=== PATIENT | male | born 1945 | race Caucasian/White ===

== ENCOUNTER 2019-12-12 09:56 | Inpatient (IN) ==
--- NOTE | 2019-12-12 10:17 | Emergency Department Note ---
Impression & Plan Respiratory failure with hypoxia, CHF (congestive heart failure), Volume overload ED Provider Note NAME: AZALEA MILLER AGE: 74 SEX: M : 1945 ARRIVES VIA: Walk-In INFORMANT: Patient, ED PROVIDER(S): Erich Ramirez MD Chief Complaint: Weak, fatigued, short of breath HPI: Patient states that he has been seen this is now his third visit in the last several days. Patient had initially been seen where he had some low sodium was given IV fluids and had some improvement with regard to some chest wheezing and associated weakness. The patient was seen a second time where he refused any blood work we did have a chest x-ray completed the patient was given antibiotic and inhaler. Patient states that he still having some shortness of breath he believes he is had some associated 5 pound weight gain although he has not had any lower extremity swelling. The patient states his been compliant with medications denies nausea or vomiting. Patient denies fevers or chills. The patient has had a dry nonproductive cough. Non-smoker. The patient states that nothing is made her symptoms any better. Shortness of breath does get worse with exertion. Patient denies chest pains or lower extremity swelling. No prior history of DVT or PE. Per review of the chart the patient does take Eliquis and aspirin. The patient is also on digoxin. ROS: See HPI for pertinent positives and negatives. A total of 10 systems were reviewed and otherwise negative. Past medical history: See below Surgical history: See below Social history: See below Physical Exam: GENERAL: A mask. NAD, non-toxic. EYE EXAM: Normal conjunctiva. PERRL, no anisocoria and EOM's grossly intact w/o pain. NECK: Supple, no nuchal rigidity, no adenopathy, non-tender. No signs of meningismus. LUNGS: Clear to auscultation. Normal chest wall mechanics. HEART: Irregularly irregular, no MRG. ABDOMEN: Abdomen soft, non-tender, normo-active bowel sounds, no masses, no rebound or guarding. BACK: No CVA TTP. SKIN: No rashes and no bruising. UPPER EXTREMITIES: Upper extremities are grossly normal. LOWER EXTREMITIES: Grossly normal, no edema. Negative Homans sign bilaterally. NEURO EXAM: A&O x3, cranial nerves II-XII grossly intact, normal speech, moves all 4 extremities on command w/o issue. Differential diagnoses: Reactive airway disease, pneumonia, pneumothorax, COPD, CHF, infections, cardiac ischemia, pulmonary embolism, musculoskeletal, gastrointestinal, as well as other pathologies. Course: Patient was seen and evaluated the bedside. Full history physical exam was performed. EKG: Indication: Shortness of breath A. fib, ventricular rate of 69, normal intervals, normal axis, Q waves anteriorly possible T wave inversion in aVL. No prior EKGs for comparison. Imaging Studies: Radiology results as stated below per my review in the radiologist's interpretation: XR chest 1V portable CLINICAL HISTORY: Dyspnea dyspnea COMPARISON STUDY: 12/10/2019 FINDINGS: Moderate stable cardiomegaly. Some progressive components of pulmonary edema versus diffuse bilateral parenchymal infiltrative change. There are no regions of consolidation. Underlying nodular component of the left lung is unchanged. IMPRESSION: Slightly progressive bilateral parenchymal infiltrates versus components of pulmonary edema ACT 112: Negative or not required by law. The above report was generated using voice recognition software. It may contain grammatical, syntax or spelling errors. Electronically signed by: Erasto Snyder M.D. 12/12/2019 10:46 AM Dictated: 12/12/19 1044 Transcribed: 12/12/19 1044 Cardiac monitoring: An order was placed for continuous cardiac monitoring. The monitor shows a rate of 64 with irregularly irregular rhythm. MDM: Patient was seen due to concern for shortness of breath weakness and fatigue. Blood work was obtained along with an EKG, troponin, chest x-ray BNP, dig level. I did receive report from nursing that the patient was satting in the 70s. Patient was placed on additional oxygen and was maintaining in the low 90s 15 L on a nonrebreather. Patient does not look uncomfortable. Chest x-ray does show bilateral infiltrates versus pulmonary edema. Ordered empiric antibiotics given the patient's known history of A. fib on Eliquis and dig even in the absence of lower extremity swelling will consider Lasix. Rapid Test was ordered and the patient was placed under isolation. The patient does have a mild white count of 10 with a hemoglobin 11.8. The patient does have some mild lymphopenia but also neutrophilia. Patient have tracely low digoxin. BNP is grossly elevated. Nitroglycerin as well as Lasix were both ordered. Patient did have a negative COVID test. Poly ent was admitted to the medicine service. Patient during his whole time here is never looked in extremis. The patient was comfortable. The patient's ABG ABG did show that the patient does have a low O2. I did consider the possibility of PE but the patient is currently anticoagulated and given the patient's history as well as the pulmonary edema likely seen on chest x-ray I believe volume overload to be more likely. Past Med/Surg History Medical History Atrial fibrillation Carotid artery stenosis Diabetes mellitus, type 2 Gout Hyperlipidemia Hypertension Kidney function abnormal "REDUCED KIDNEY FUNCTION" Osteoarthritis Surgical History History of cardiac cath HEART CATH X 2 (10 YEARS AGO) History of carotid endarterectomy RT/LEFT SIDE WITH STENTS INSERTIONS BILAT. History of colonoscopy History of heart artery stent 10 YEARS AGO (2 TOTAL STENTS) History of left cataract extraction 04/2018: Was given 2mg of versed without apparent complications History of tooth extraction Hx of LASIK PRK BILAT EYES Family History Grandmother (Paternal) Family history of diabetes mellitus Sister Family history of diabetes mellitus Mother Family hx of colon cancer Father AAA (abdominal aortic aneurysm) Social History Preferred Language: Macanese Communication Ability: Effective Community Affairs Director Required: No Beliefs That Will Affect Care: None Current Living Situation: Spouse Other Information That Helps Us Care for You: No Feels Safe at Home: Yes Safety Concerns: Feels Safe At This Time Smoking Status: Never smoker Second Hand Exposure: No ; Hx Alcohol Use: No Hx Substance Use: No Allergies Allergies Allergy/AdvReac Type Severity Reaction Status Date / Time oxycodone [From Percocet] AdvReac Mild Nausea Verified 12/12/19 11:29 Home Meds Home Medications Medication Instructions Recorded Confirmed Basaglar KwikPen U-100 Insulin 30 unit SUBCUT HS 05/10/18 12/12/19 Eliquis 5 mg PO BID 05/10/18 12/12/19 Januvia 50 mg PO QAM 05/10/18 12/12/19 allopurinol 300 mg PO QAM 05/10/18 12/12/19 amlodipine 5 mg PO HS 05/10/18 12/12/19 atenolol 25 mg PO HS 05/10/18 12/12/19 atenolol 50 mg PO QAM 05/10/18 12/12/19 atorvastatin 40 mg PO HS 05/10/18 12/12/19 digoxin 0.125 mg PO SUMOWEFR 05/10/18 12/12/19 ergocalciferol (vitamin D2) 50,000 unit PO UD 05/10/18 12/12/19 [Vitamin D2] fenofibric acid (choline) 135 mg PO QAM 05/10/18 12/12/19 omega 5-[id number]-[id number]-fish oil [Fish Oil] 2 cap PO BID 05/10/18 12/12/19 valsartan 160 mg PO QAM 05/10/18 12/12/19 aspirin [Aspir-81] 81 mg PO QAM 12/10/19 12/12/19 hydrochlorothiazide 25 mg PO QAM 12/10/19 12/12/19 Previous Rx's Medication Instructions Recorded doxycycline hyclate 100 mg PO BID 10 Days #20 tab 12/10/19 Results & Data (ED) Vital Signs Vital Signs - 24 hr 12/12/19 10:02 12/12/19 10:42 12/12/19 10:47 Temperature 37.1 C Temperature Source Oral Pulse Rate 64 Pulse Rate [Left Finger] Respiratory Rate 18 Respiratory Effort / Characteristics Non-Labored Spontaneous Respiratory Depth Normal Respiratory Pattern Regular Blood Pressure 157/67 H Blood Pressure [Left Arm] Blood Pressure Mean 97 Blood Pressure Mean [Left Arm] Blood Pressure Position Sitting Pulse Oximetry 96 79 L 86 L Oxygen Delivery Method Room Air Room Air Nasal Cannula Oxygen Flow Rate 6 Sepsis Recent Fever Within 48 Hours No Sepsis New/Unexplained Change in Mental Status No 12/12/19 10:57 12/12/19 11:00 12/12/19 11:30 Temperature Temperature Source Pulse Rate 68 60 Pulse Rate [Left Finger] 61 Respiratory Rate 24 24 23 Respiratory Effort / Characteristics Respiratory Depth Respiratory Pattern Blood Pressure 171/79 H 150/77 H Blood Pressure [Left Arm] 152/73 H Blood Pressure Mean 93 90 Blood Pressure Mean [Left Arm] 99 Blood Pressure Position Pulse Oximetry 89 L 90 92 Oxygen Delivery Method Non-rebreather Non-rebreather Non-rebreather Oxygen Flow Rate 15 15 15 Sepsis Recent Fever Within 48 Hours Sepsis New/Unexplained Change in Mental Status 12/12/19 12:00 12/12/19 12:30 12/12/19 13:01 Temperature Temperature Source Pulse Rate 63 60 63 Pulse Rate [Left Finger] Respiratory Rate 20 25 H 25 H Respiratory Effort / Characteristics Respiratory Depth Respiratory Pattern Blood Pressure 161/82 H 160/84 H 170/85 H Blood Pressure [Left Arm] Blood Pressure Mean 98 97 121 Blood Pressure Mean [Left Arm] Blood Pressure Position Pulse Oximetry 91 90 90 Oxygen Delivery Method Non-rebreather Non-rebreather Non-rebreather Oxygen Flow Rate 15 15 15 Sepsis Recent Fever Within 48 Hours Sepsis New/Unexplained Change in Mental Status Home Medications Current Medication List: was personally reviewed by me Laboratory Data Attestation: I reviewed the patient's lab results. Result diagrams: 12/12/19 10:55 12/12/19 10:55 Lab Results 12/12/19 12/12/19 12/12/19 Range/Units 10:55 10:55 10:55 WBC 10.82 H (4.8-10.8) K/uL RBC 3.78 L (4.7-6.1) M/uL Hgb 11.8 L (14.0-18.0) g/dL Hct 32.8 L (42-52) % MCV 86.8 (80-100) fL MCH 31.2 (25-34) pg MCHC 36.0 (32-36) g/dL RDW Std Deviation 47.9 H (36.4-46.3) fL RDW Coeff of Aleksandra 15.1 H (11.5-14.5) % Plt Count 137 (130-400) K/uL MPV 10.2 (7.4-10.4) fL Immature Gran % (Auto) 0.2 % Neut % (Auto) 84.7 % Lymph % (Auto) 9.1 % [place] % (Auto) 5.8 % Eos % (Auto) 0.1 % Baso % (Auto) 0.1 % Neut # (Auto) 9.17 H (1.4-6.5) K/uL Lymph # (Auto) 0.98 L (1.2-3.4) K/uL [place] # (Auto) 0.63 H (0.11-0.59) K/uL Eos # (Auto) 0.01 (0-0.5) K/uL Baso # (Auto) 0.01 (0-0.2) K/uL Immature Gran # (Auto) 0.02 (0.00-0.02) K/uL PT 13.9 H (9.0-12.0) Seconds INR 1.3 H (0.9-1.1) APTT 42.6 H (21.0-31.0) Seconds PTT Ratio 1.5 ABG pH ABG pCO2 ABG pO2 ABG HCO3 ABG O2 Saturation ABG Base Excess Donnell Test Barometric Pressure Oxygen Given Sodium 124 L (136-145) mmol/L Potassium 3.9 (3.5-5.1) mmol/L Chloride 93 L (98-107) mmol/L Carbon Dioxide 21 (21-32) mmol/L Anion Gap 10.0 (3-11) BUN 40 H (7-18) mg/dl Creatinine 2.19 H (0.6-1.4) mg/dl Est Cr Clr Drug Dosing 29.1 ml/min Est GFR ( Amer) 32.9 Est GFR (Non-Af Amer) 28.4 BUN/Creatinine Ratio 18.5 (10-20) Glucose 213 H (70-99) mg/dl Lactate (0.4-2.0) mmol/L Calcium 8.5 (8.5-10.1) mg/dl Magnesium 1.5 L (1.8-2.4) mg/dl Total Bilirubin 1.4 H (0.2-1) mg/dl AST 42 H (15-37) U/L ALT 38 (12-78) U/L Alkaline Phosphatase 52 (45-117) U/L Troponin I 0.033 (0-0.045) ng/ml NT-Pro-B Natriuret Pep 09865 H (0-900) pg/ml Total Protein 7.4 (6.4-8.2) gm/dl Albumin 3.0 L (3.4-5.0) gm/dl Globulin 4.4 H (2.5-4.0) gm/dl Albumin/Globulin Ratio 0.7 L (0.9-2) Procalcitonin (0-0.5) ng/ml Urine Color Urine Appearance (Clear) Urine pH (4.5-7.5) Ur Specific [place] (1.000-1.030) Urine Protein (Negative) Urine Glucose (UA) (Negative) Urine Ketones (Negative) Urine Blood (Negative) Urine Nitrite (Negative) Urine Bilirubin (Negative) Urine Urobilinogen (Negative) Ur Leukocyte Esterase (Negative) Urine WBC (Auto) (0-5) /hpf Urine RBC (Auto) (0-4) /hpf U Hyaline Cast (Auto) (0-5) /lpf U Epithel Cells (Auto) (0-5) /lpf Urine Bacteria (Auto) (Negative) Digoxin (0.8-2.0) ng/ml COVID-19 PCR (Negative) SARS-CoV-2 RNA (RT-PCR) 12/12/19 12/12/19 12/12/19 Range/Units 10:55 10:55 11:18 WBC (4.8-10.8) K/uL RBC (4.7-6.1) M/uL Hgb (14.0-18.0) g/dL Hct (42-52) % MCV (80-100) fL MCH (25-34) pg MCHC (32-36) g/dL RDW Std Deviation (36.4-46.3) fL RDW Coeff of Aleksandra (11.5-14.5) % Plt Count (130-400) K/uL MPV (7.4-10.4) fL Immature Gran % (Auto) % Neut % (Auto) % Lymph % (Auto) % [place] % (Auto) % Eos % (Auto) % Baso % (Auto) % Neut # (Auto) (1.4-6.5) K/uL Lymph # (Auto) (1.2-3.4) K/uL [place] # (Auto) (0.11-0.59) K/uL Eos # (Auto) (0-0.5) K/uL Baso # (Auto) (0-0.2) K/uL Immature Gran # (Auto) (0.00-0.02) K/uL PT (9.0-12.0) Seconds INR (0.9-1.1) APTT (21.0-31.0) Seconds PTT Ratio ABG pH ABG pCO2 ABG pO2 ABG HCO3 ABG O2 Saturation ABG Base Excess Donnell Test Barometric Pressure Oxygen Given Sodium (136-145) mmol/L Potassium (3.5-5.1) mmol/L Chloride (98-107) mmol/L Carbon Dioxide (21-32) mmol/L Anion Gap (3-11) BUN (7-18) mg/dl Creatinine (0.6-1.4) mg/dl Est Cr Clr Drug Dosing ml/min Est GFR ( Amer) Est GFR (Non-Af Amer) BUN/Creatinine Ratio (10-20) Glucose (70-99) mg/dl Lactate 1.4 (0.4-2.0) mmol/L Calcium (8.5-10.1) mg/dl Magnesium (1.8-2.4) mg/dl Total Bilirubin (0.2-1) mg/dl AST (15-37) U/L ALT (12-78) U/L Alkaline Phosphatase (45-117) U/L Troponin I (0-0.045) ng/ml NT-Pro-B Natriuret Pep (0-900) pg/ml Total Protein (6.4-8.2) gm/dl Albumin (3.4-5.0) gm/dl Globulin (2.5-4.0) gm/dl Albumin/Globulin Ratio (0.9-2) Procalcitonin 0.66 H (0-0.5) ng/ml Urine Color Urine Appearance (Clear) Urine pH (4.5-7.5) Ur Specific [place] (1.000-1.030) Urine Protein (Negative) Urine Glucose (UA) (Negative) Urine Ketones (Negative) Urine Blood (Negative) Urine Nitrite (Negative) Urine Bilirubin (Negative) Urine Urobilinogen (Negative) Ur Leukocyte Esterase (Negative) Urine WBC (Auto) (0-5) /hpf Urine RBC (Auto) (0-4) /hpf U Hyaline Cast (Auto) (0-5) /lpf U Epithel Cells (Auto) (0-5) /lpf Urine Bacteria (Auto) (Negative) Digoxin 0.7 L (0.8-2.0) ng/ml COVID-19 PCR (Negative) SARS-CoV-2 RNA (RT-PCR) 12/12/19 12/12/19 12/12/19 Range/Units 11:20 11:30 11:30 WBC (4.8-10.8) K/uL RBC (4.7-6.1) M/uL Hgb (14.0-18.0) g/dL Hct (42-52) % MCV (80-100) fL MCH (25-34) pg MCHC (32-36) g/dL RDW Std Deviation (36.4-46.3) fL RDW Coeff of Aleksandra (11.5-14.5) % Plt Count (130-400) K/uL MPV (7.4-10.4) fL Immature Gran % (Auto) % Neut % (Auto) % Lymph % (Auto) % [place] % (Auto) % Eos % (Auto) % Baso % (Auto) % Neut # (Auto) (1.4-6.5) K/uL Lymph # (Auto) (1.2-3.4) K/uL [place] # (Auto) (0.11-0.59) K/uL Eos # (Auto) (0-0.5) K/uL Baso # (Auto) (0-0.2) K/uL Immature Gran # (Auto) (0.00-0.02) K/uL PT (9.0-12.0) Seconds INR (0.9-1.1) APTT (21.0-31.0) Seconds PTT Ratio ABG pH Cancelled ABG pCO2 Cancelled ABG pO2 Cancelled ABG HCO3 Cancelled ABG O2 Saturation Cancelled ABG Base Excess Cancelled Donnell Test Cancelled Barometric Pressure Cancelled Oxygen Given Cancelled Sodium (136-145) mmol/L Potassium (3.5-5.1) mmol/L Chloride (98-107) mmol/L Carbon Dioxide (21-32) mmol/L Anion Gap (3-11) BUN (7-18) mg/dl Creatinine (0.6-1.4) mg/dl Est Cr Clr Drug Dosing ml/min Est GFR ( Amer) Est GFR (Non-Af Amer) BUN/Creatinine Ratio (10-20) Glucose (70-99) mg/dl Lactate (0.4-2.0) mmol/L Calcium (8.5-10.1) mg/dl Magnesium (1.8-2.4) mg/dl Total Bilirubin (0.2-1) mg/dl AST (15-37) U/L ALT (12-78) U/L Alkaline Phosphatase (45-117) U/L Troponin I (0-0.045) ng/ml NT-Pro-B Natriuret Pep (0-900) pg/ml Total Protein (6.4-8.2) gm/dl Albumin (3.4-5.0) gm/dl Globulin (2.5-4.0) gm/dl Albumin/Globulin Ratio (0.9-2) Procalcitonin (0-0.5) ng/ml Urine Color Urine Appearance (Clear) Urine pH (4.5-7.5) Ur Specific [place] (1.000-1.030) Urine Protein (Negative) Urine Glucose (UA) (Negative) Urine Ketones (Negative) Urine Blood (Negative) Urine Nitrite (Negative) Urine Bilirubin (Negative) Urine Urobilinogen (Negative) Ur Leukocyte Esterase (Negative) Urine WBC (Auto) (0-5) /hpf Urine RBC (Auto) (0-4) /hpf U Hyaline Cast (Auto) (0-5) /lpf U Epithel Cells (Auto) (0-5) /lpf Urine Bacteria (Auto) (Negative) Digoxin (0.8-2.0) ng/ml COVID-19 PCR NEGATIVE (Negative) SARS-CoV-2 RNA (RT-PCR) Cancelled 12/12/19 12/12/19 Range/Units 12:14 12:53 WBC (4.8-10.8) K/uL RBC (4.7-6.1) M/uL Hgb (14.0-18.0) g/dL Hct (42-52) % MCV (80-100) fL MCH (25-34) pg MCHC (32-36) g/dL RDW Std Deviation (36.4-46.3) fL RDW Coeff of Aleksandra (11.5-14.5) % Plt Count (130-400) K/uL MPV (7.4-10.4) fL Immature Gran % (Auto) % Neut % (Auto) % Lymph % (Auto) % [place] % (Auto) % Eos % (Auto) % Baso % (Auto) % Neut # (Auto) (1.4-6.5) K/uL Lymph # (Auto) (1.2-3.4) K/uL [place] # (Auto) (0.11-0.59) K/uL Eos # (Auto) (0-0.5) K/uL Baso # (Auto) (0-0.2) K/uL Immature Gran # (Auto) (0.00-0.02) K/uL PT (9.0-12.0) Seconds INR (0.9-1.1) APTT (21.0-31.0) Seconds PTT Ratio ABG pH 7.47 H ABG pCO2 30 L ABG pO2 58 L ABG HCO3 21 ABG O2 Saturation 88.8 L ABG Base Excess -1.5 Donnell Test Pos Barometric Pressure 733.3 Oxygen Given 15 L Sodium (136-145) mmol/L Potassium (3.5-5.1) mmol/L Chloride (98-107) mmol/L Carbon Dioxide (21-32) mmol/L Anion Gap (3-11) BUN (7-18) mg/dl Creatinine (0.6-1.4) mg/dl Est Cr Clr Drug Dosing ml/min Est GFR ( Amer) Est GFR (Non-Af Amer) BUN/Creatinine Ratio (10-20) Glucose (70-99) mg/dl Lactate (0.4-2.0) mmol/L Calcium (8.5-10.1) mg/dl Magnesium (1.8-2.4) mg/dl Total Bilirubin (0.2-1) mg/dl AST (15-37) U/L ALT (12-78) U/L Alkaline Phosphatase (45-117) U/L Troponin I (0-0.045) ng/ml NT-Pro-B Natriuret Pep (0-900) pg/ml Total Protein (6.4-8.2) gm/dl Albumin (3.4-5.0) gm/dl Globulin (2.5-4.0) gm/dl Albumin/Globulin Ratio (0.9-2) Procalcitonin (0-0.5) ng/ml Urine Color Yellow Urine Appearance Clear (Clear) Urine pH 5.0 (4.5-7.5) Ur Specific [place] 1.028 (1.000-1.030) Urine Protein 1+ H (Negative) Urine Glucose (UA) 2+ H (Negative) Urine Ketones Negative (Negative) Urine Blood Trace H (Negative) Urine Nitrite Negative (Negative) Urine Bilirubin Negative (Negative) Urine Urobilinogen Negative (Negative) Ur Leukocyte Esterase Negative (Negative) Urine WBC (Auto) 0 (0-5) /hpf Urine RBC (Auto) 0-4 (0-4) /hpf U Hyaline Cast (Auto) 1-5 (0-5) /lpf U Epithel Cells (Auto) 5-10 H (0-5) /lpf Urine Bacteria (Auto) Negative (Negative) Digoxin (0.8-2.0) ng/ml COVID-19 PCR (Negative) SARS-CoV-2 RNA (RT-PCR) Administered Medications Doxycycline Hyclate 100 mg/ (Dextrose) 110 mls @ 50 mls/hr IV Q12H [facility]; Protocol Stop: 12/19/19 17:59 Last Admin: 12/12/19 17:01 Dose: 50 mls/hr Documented by: [id number] Magnesium Sulfate/Dextrose (Magnesium Sulfate / D5w) 1 gm in 100 mls @ 50 mls/hr IV Q2H [facility] Stop: 12/12/19 19:29 Last Admin: 12/12/19 17:01 Dose: 50 mls/hr Documented by: [id number] Discontinued Medications Furosemide (Lasix) 40 mg IV NOW STA Stop: 12/12/19 11:54 Last Admin: 12/12/19 12:06 Dose: 40 mg Documented by: [id number] Vancomycin HCl 2,000 mg/ (Sodium Chloride) 540 mls @ 200 mls/hr IV NOW ONE Stop: 12/12/19 13:26 Last Infusion: 12/12/19 14:48 Dose: 0 mls/hr Documented by: [id number] Admin: 12/12/19 12:06 Dose: 200 mls/hr Documented by: [id number] Piperacillin Sod/Tazobactam Sod (Zosyn) 4.5 gm in 120 mls @ 240 mls/hr IV NOW ONE Stop: 12/12/19 11:14 Last Infusion: 12/12/19 12:06 Dose: 0 mls/hr Documented by: [id number] Admin: 12/12/19 11:25 Dose: 240 mls/hr Documented by: [id number] Nitroglycerin (Nitrostat) 0.4 mg SL NOW STA Stop: 12/12/19 11:54 Last Admin: 12/12/19 12:06 Dose: 0.4 mg Documented by: [id number] Discharge Plan Visit Data *Final* Discharge Date/Time: 12/12/19 13:55 Chief Complaint: Shortness of Breath/Dyspnea Stated Complaint: SOB, COUGH, CONGESTION ED Provider: Erich Ramirez Discharge Problem: Respiratory failure with hypoxia, CHF (congestive heart failure), Volume overload Patient Disposition: Admitted As Inpatient Discharge Instructions Interventions: ED Discharge Assessment Last Done: 12/12/19 13:55
[2019-12-12] MEDS ORDERED: PIPERACILLIN/TAZOBACTAM 4.5 GM/120 ML BAG IV ONE (10:45)
[2019-12-12] MEDS ORDERED: PIPERACILL/TAZOBAC CONSULT ACTIVE PRN (10:45)
[2019-12-12] MEDS ORDERED: VANCOMYCIN HCL 2,000 MG in SODIUM CHLORIDE 0.9% 500 ML IV ONE (10:45)
[2019-12-12] MEDS ORDERED: VANCOMYCIN CONSULT ACTIVE PRN (10:45)
--- NOTE | 2019-12-12 10:47 | XRay Report ---
XR chest 1V portable CLINICAL HISTORY: Dyspnea dyspnea COMPARISON STUDY: 12/10/2019 FINDINGS: Moderate stable cardiomegaly. Some progressive components of pulmonary edema versus diffuse bilateral parenchymal infiltrative change. There are no regions of consolidation. Underlying nodular component of the left lung is unchanged. IMPRESSION: Slightly progressive bilateral parenchymal infiltrates versus components of pulmonary ed kamila ACT 112: Negative or not required by law. The above report was generated using voice recognition software. It may contain grammatical, syntax or spelling errors. Electronically signed by: Erasto Snyder M.D. 12/12/2019 10:46 AM
[2019-12-12 11:12] LABS: Basophils # (auto) 0.01 K/uL (0-0.2); Basophils % (auto) 0.1 %; Eosinophils # (auto) 0.01 K/uL (0-0.5); Eosinophils % (auto) 0.1 %; Hematocrit (blood only) 32.8 % (42-52); Hemoglobin 11.8 g/dL (14.0-18.0); Immature Granulocytes # (auto) 0.02 K/uL (0.00-0.02); Immature Granulocytes % (auto) 0.2 %; Lymphocytes # (auto) 0.98 K/uL (1.2-3.4); Lymphocytes % (auto) 9.1 %; Mean Corpuscular Hemoglobin 31.2 pg (25-34); Mean Corpuscular Volume 86.8 fL (80-100); Mean Platelet Volume 10.2 fL (7.4-10.4); Monocytes # (auto) 0.63 K/uL (0.11-0.59); Monocytes % (auto) 5.8 %; Neutrophils # (auto) 9.17 K/uL (1.4-6.5); Neutrophils % (auto) 84.7 %; Platelet Count 137 K/uL (130-400); RDW Coefficient of Variation 15.1 % (11.5-14.5); RDW Standard Deviation 47.9 fL (36.4-46.3); Red Blood Count 3.78 M/uL (4.7-6.1); White Blood Count 10.82 K/uL (4.8-10.8)
[2019-12-12 11:22] LABS: INR 1.3 (0.9-1.1); Partial Thromboplastin Ratio 1.5; Partial Thromboplastin Time 42.6 Seconds (21.0-31.0); Prothrombin Time 13.9 Seconds (9.0-12.0)
[2019-12-12 11:31] LABS: BUN Creatinine Ratio 18.5 (10-20); Calcium 8.5 mg/dl (8.5-10.1); Creatinine Clr Calc Pharmacy 29.1 ml/min; Est GFR (African American) 32.9; Est GFR (Non-African American) 28.4; Magnesium 1.5 mg/dl (1.8-2.4); Potassium 3.9 mmol/L (3.5-5.1)
[2019-12-12 11:37] LABS: Albumin Globulin Ratio 0.7 (0.9-2); Bilirubin,Total 1.4 mg/dl (0.2-1); Globulin 4.4 gm/dl (2.5-4.0); Total Protein 7.4 gm/dl (6.4-8.2); Troponin I 0.033 ng/ml (0-0.045)
[2019-12-12] MEDS ORDERED: FUROSEMIDE 40 MG/4 ML VIAL IV STA (11:53)
[2019-12-12] MEDS ORDERED: NITROGLYCERIN SL 0.4 MG/TAB TAB SL STA (11:53)
[2019-12-12 12:29] LABS: Appearance Urine Clear (Clear); Bacteria Urine Automated Negative (Negative); Bilirubin Urine Negative (Negative); Blood Urine Trace (Negative); Color Urine Yellow; Glucose Urine UA 2+ (Negative); Ketones Urine Negative (Negative); Leukocyte Esterase Urine Negative (Negative); Nitrite Urine Negative (Negative); Protein Urine 1+ (Negative); RBC Urine Automated 0-4 /hpf (0-4); Specific Gravity Urine 1.028 (1.000-1.030); Urobilinogen Urine Negative (Negative); WBC Urine Automated 0 /hpf (0-5)
[2019-12-12 13:05] LABS: Base Excess ABG -1.5 mEq/L (-9-1.8); HCO3 ABG 21 mmol/L (19-24); Oxygen Saturation ABG 88.8 % (90-95); PCO2 ABG 30 mmHg (35-46); PO2 ABG 58 mmHg (80-95); pH ABG 7.47 (7.35-7.45)
[2019-12-12 13:10] LABS: Allen Test Pos (Pos)
[2019-12-12] MEDS ORDERED: CARBOHYDRATES FOR HYPOGLYCEMIA PO PRN (14:33)
[2019-12-12] MEDS ORDERED: DEXTROSE 50% 50 ML SYRINGE IV PRN (14:33)
[2019-12-12] MEDS ORDERED: GLUCOSE 40% GEL 15 GM TUBE PO PRN (14:33)
[2019-12-12] MEDS ORDERED: GLUCOSE 10 TABS/TUBE PO PRN (14:33)
[2019-12-12] MEDS ORDERED: GLUCAGON FOR INJ 1 MG VIAL SQ PRN (14:33)
[2019-12-12] MEDS ORDERED: ACETAMINOPHEN 325 MG TAB PO PRN (14:33)
--- NOTE | 2019-12-12 15:22 | History & Physical Report ---
Date of Service December 12, 2019 Assessment & Plan (1) Acute respiratory failure with hypoxia: -admit to tele -patient presenting from home with reports of worsening shortness of breath -seen in the ED on 12/07 and given 2L NSS for dehydration and hyponatremia, seen again on 12/09 and given doxycycline for suspected pneumonia -in the ED today, was hypoxic on room air at 79%, currently requiring 15L NRB -ABG: pH 7.47, CO2 30, O2 58, HCO3 21 -symptoms seem to be due to CHF given elevated proBNP, weight gain, and orthopnea however, given ground glass consolidation on CT scan and significant oxygen requirement, will re-test for COVID-19 (PCR preformed while in ED negative) -s/p Vanco and Zosyn in the ED, will continue with IV ceftriaxone and IV doxycycline for now given lack of sepsis and HCAP -PE unlikely since patient reports compliance with Eliquis -patient denies prior history of CHF (records unavailable since he receives his care out of the area), will obtain echo -s/p Lasix 40mg IV in the ED and is diuresising well; will hold on further diuresis for now given hyponatremia and SONIA - appreciate cardio and nephro recommendations -daily weights, low Na+ diet, strict I/Os (2) Hyponatremia: -Na + 124 (previously was 127 on 12/07) -received 2L NSS on 12/07 -? hypervolemic hyponatremia from CHF / volume overload -recheck BMP at 1700 -check urine and serum osmo, urine electrolytes -nephro consult (3) Acute kidney injury superimposed on CKD: -outside records unavailable -patient reports baseline creat 1.5 - 1.8 -noted to be 2.1 today -monitor renal functions closely while diuresising -hold home Valsartan (4) Hypertension: -BP running a little high -continue home doses of amlodipine, atenolol -BP should improve with diuresis -holding Valsartan and HCTZ due to SONIA / while diuresising (5) Atrial fibrillation: -rate controlled on dig and atenolol and anticoagulated on Eliquis - continue all (6) Diabetes mellitus, type 2: -unknown hgb a1c -hold oral agents and utilize Lantus and Novolog while hospitalized (7) DVT prophylaxis: -on Eliquis Admission and Anticipated Discharge Date Admission Date: December 12, 2019 History of Present Illness Chief Complaint: Shortness of Breath Primary Care Provider: Brannon Ellison MD 74 year old male with PMH CAD, DM type 2 on insulin, afib anticoagulated on Eliquis, CKD, HTN, and other problems listed below who presents to the ED for e valuation of shortness of breath. Patient was in the ED on 12/07 for evaluation of dehydration. Patient reports he was feeling weak and tired, symptoms that he has when this sodium is low and is dehydrated. He received 2L NSS. Na+ was 127. He was seen again on 12/09 for complaints of cough. He declined to have labs done. He was discharged on doxycycline. Patient reports that since returning home he has had some increasing shortness of breath. He reports orthopnea and a 5lb weight gain in the past one week. He noted some abdominal distention today. No lower extremity edema. Patient denies prior history of CHF. He denies chest pain and palpitations. No lightheadedness, dizziness, diaphoresis, or syncopal events. Reports cough has been dry and non productive. Denies fever and chills. No abdominal pain, nausea, vomiting, or diarrhea. Denies urinary symptoms. In the ED, patient was found to be hypoxic on room air at 79%. He is currently requiring 15L via NRB. He is not in respiratory distress. Other vitals are stable. Labs show WBC 10.8K, Na+ 124, creat 2.1, proBNP 12,694, and procal 0.66. CXR shows slightly progressive bilateral parenchymal infiltrates versus components of pulmonary edema. He was given Lasix 40mg IV, IV Vanco, and IV Zosyn. Allergies Allergy/AdvReac Type Severity Reaction Status Date / Time oxycodone [From Percocet] AdvReac Mild Nausea Verified 12/12/19 11:29 Home Medications Home Medications Medication Instructions Recorded Confirmed Type Basaglar PapiikPen U-100 Insulin 30 unit SUBCUT HS 05/10/18 12/12/19 History Eliquis 5 mg PO BID 05/10/18 12/12/19 History Januvia 50 mg PO QAM 05/10/18 12/12/19 History allopurinol 300 mg PO QAM 05/10/18 12/12/19 History amlodipine 5 mg PO HS 05/10/18 12/12/19 History atenolol 25 mg PO HS 05/10/18 12/12/19 History atenolol 50 mg PO QAM 05/10/18 12/12/19 History atorvastatin 40 mg PO HS 05/10/18 12/12/19 History digoxin 0.125 mg PO SUMOWEFR 05/10/18 12/12/19 History ergocalciferol (vitamin D2) 50,000 unit PO UD 05/10/18 12/12/19 History [Vitamin D2] fenofibric acid (choline) 135 mg PO QAM 05/10/18 12/12/19 History omega 7-[id number]-fish oil [Fish Oil] 2 cap PO BID 05/10/18 12/12/19 History valsartan 160 mg PO QAM 05/10/18 12/12/19 History aspirin [Aspir-81] 81 mg PO QAM 12/10/19 12/12/19 History doxycycline hyclate 100 mg PO BID 10 Days #20 tab 12/10/19 12/12/19 Rx hydrochlorothiazide 25 mg PO QAM 12/10/19 12/12/19 History Past Med/Surg History Medical History Atrial fibrillation Carotid artery stenosis Diabetes mellitus, type 2 Gout Hyperlipidemia Hypertension Kidney function abnormal "REDUCED KIDNEY FUNCTION" Osteoarthritis Surgical History History of cardiac cath HEART CATH X 2 (10 YEARS AGO) History of carotid endarterectomy RT/LEFT SIDE WITH STENTS INSERTIONS BILAT. History of colonoscopy History of heart artery stent 10 YEARS AGO (2 TOTAL STENTS) History of left cataract extraction 04/2018: Was given 2mg of versed without apparent complications History of tooth extraction Hx of LASIK PRK BILAT EYES Family History Grandmother (Paternal) Family history of diabetes mellitus Sister Family history of diabetes mellitus Mother Family hx of colon cancer Father AAA (abdominal aortic aneurysm) Social History Preferred Language: Romansh Communication Ability: Effective Baggage Porter Required: No Beliefs That Will Affect Care: None Current Living Situation: Spouse Other Information That Helps Us Care for You: No Feels Safe at Home: Yes Safety Concerns: Feels Safe At This Time Smoking Status: Never smoker Second Hand Exposure: No ; Hx Alcohol Use: No Hx Substance Use: No Review of Systems Review of Systems: ROS per HPI, all other systems reviewed and negative Physical Exam Constitutional: WD/WN, vitals as above Eyes: PERRL, conjunctivae normal, anicteric sclerae ENMT: external ear and nose normal, oropharynx normal Respiratory: normal respiratory effort; no respiratory distress Auscultation: + crackles (BL, mid/lower lung ricketts) Cardiovascular: Rate/Rhythm: regular rate and + irregularly irregular Vessels: normal peripheral pulses Extremities: no edema Gastrointestinal (Abdomen): normal bowel sounds, soft, nontender, no hepatosplenomegaly Musculoskeletal: no cyanosis or clubbing, extremities motor strength 5/5 Skin: no rashes, warm and dry Neurologic: PERRL, EOMI, accommodation nl, no face palsy, no dysarthria Psychiatric: A+Ox3, euthymic affect Results & Data Results & Data ([facility]) Vital Signs (Past 12 Hours) Vital Signs Temp Pulse Pulse Resp BP BP Pulse Ox 12/12/19 14:33 37.1 C 66 22 162/84 H 91 12/12/19 13:30 66 23 154/87 H 91 12/12/19 13:01 63 25 H 170/85 H 90 12/12/19 12:30 60 25 H 160/84 H 90 12/12/19 12:00 63 20 161/82 H 91 12/12/19 11:30 60 23 150/77 H 92 12/12/19 11:00 68 24 171/79 H 90 12/12/19 10:57 61 24 152/73 H 89 L 12/12/19 10:47 86 L 12/12/19 10:42 79 L 12/12/19 10:02 37.1 C 64 18 157/67 H 96 Laboratory Results Short CBC 12/12/19 Range/Units 10:55 WBC 10.82 H (4.8-10.8) K/uL Hgb 11.8 L (14.0-18.0) g/dL Hct 32.8 L (42-52) % Plt Count 137 (130-400) K/uL BMP 12/12/19 10:55 Sodium 124 L Potassium 3.9 Chloride 93 L Carbon Dioxide 21 BUN 40 H Creatinine 2.19 H Glucose 213 H Calcium 8.5 Cardiac Enzymes 12/12/19 Range/Units 10:55 Troponin I 0.033 (0-0.045) ng/ml Liver Function 12/12/19 Range/Units 10:55 Total Bilirubin 1.4 H (0.2-1) mg/dl AST 42 H (15-37) U/L ALT 38 (12-78) U/L Alkaline Phosphatase 52 (45-117) U/L Albumin 3.0 L (3.4-5.0) gm/dl Urine 12/12/19 Range/Units 12:14 Urine Color Yellow Urine Appearance Clear (Clear) Urine pH 5.0 (4.5-7.5) Ur Specific [place] 1.028 (1.000-1.030) Urine Protein 1+ H (Negative) Urine Glucose (UA) 2+ H (Negative) Diagnostic Findings CXR IMPRESSION: Slightly progressive bilateral parenchymal infiltrates versus components of pulmonary edema CT CHEST IMPRESSION: 1. Cardiomegaly with evidence of congestive failure. 2. Patchy ground glass consolidation is seen throughout both lungs and likely represents interstitial edema. Correlate clinically for evidence of a superimposed infectious/inflammatory pneumonitis. Radiographic follow-up to resolution is recommended. 3. Small to moderate pleural effusions with associated bibasilar atelectasis. 4. Mildly enlarged mediastinal lymph nodes are nonspecific and likely on a reactive basis. Code Status & VTE Plan Code Status Patient is a DNR as per my discussion with him. VTE Prophylaxis Plan VTE Prophylaxis will be ordered: No Supervising Physician Co-Signing Physician Notes Patient is a 73-year-old male with history of CAD, PAD, diabetes, A. fib and other medical problems presents with history of cough, shortness of breath, generalized weakness which has been gradually worsening since 3 days duration. Patient received IV fluids on next visit to ED for dehydration. He was also started on doxycycline for URI symptoms. Patient admits to having orthopnea, weight gain since last 1 week. Please review HPI for complete details of presentation. He was noted to be hypoxic in the high 70s while in ED and was placed on nonrebreather. Mild leukocytosis, hyponatremia--124, ABG consistent with respiratory alkalosis, SONIA with Cr;2.1, Mild troponin elevation at 0.05. CT chest suggestive of congestive failure. Also noted patchy groundglass consolidation suggestive of pneumonitis; small to moderate pleural effusions with bi basilar atelectasis, enlarged mediastinal lymph nodes. On exam patient is in mild respiratory distress, normocephalic atraumatic, lungs--decreased breath sounds on right side, left-sided crackles, irregularly irregular rhythm, no murmur, trace pedal edema, abdomen soft nontender, grossly no focal neurological deficits. Patient is admitted for management of acute respiratory failure with hypoxia likely secondary to multifactorial--acute CHF, bilateral pneumonia. Started on Rocephin, doxycycline. Blood cultures obtained. Continue oxygen support as needed. Consider pulmonology eval if needed. Given IV diuretics to help with volume status. Monitor sodium levels closely. Nephrology and cardiology consulted. Monitor I's and O's, daily weight, electrolytes. Will check echo. Further IV diuretics based on volume status. Lactate within normal limits. Will check urine osmolality, urine sodium. Replace magnesium for hypomagnesemia. COVID screen is negative. I personally reviewed the record. Patient is interviewed and examined at bedside. Patient's care is coordinated with Elizabeth Sewell AUDIO VISUAL ENGINEER. Please refer to the documentation above for details of patient's presentation and for discussion of other issues.
--- NOTE | 2019-12-12 15:33 | CT Scan Report ---
CT SCAN OF THE CHEST WITHOUT IV CONTRAST CLINICAL HISTORY: Hypoxia. COMPARISON STUDY: Chest x-ray dated 12/12/2019. TECHNIQUE: CT scan of the thorax was performed from the thoracic inlet to the upper abdomen. Images are reviewed in the axial, sagittal, and coronal planes. IV contrast was not administered for this ex amination as per the referring clinician. A dose lowering technique was utilized adhering to the shanta josiah of YANCY. CT DOSE: 372.35 mGy.cm FINDINGS: Thyroid: Imaged portions of the thyroid gland are normal in size and attenuation. Thoracic aorta: There is atherosclerotic calcification of the thoracic aorta, which is normal in aliya vic and demonstrates standard 3-vessel arch anatomy. Heart: The heart is enlarged noting a small effusion. The coronary arteries are densely calcified. Lungs and pleural spaces: Evaluation of the lung parenchyma is modestly degraded by motion artifact. There are small to moderate pleural effusions, right larger than left with associated atelectasis. Th ere is diffuse intralobular septal thickening. Foci of groundglass consolidation are present througho ut both lungs. Mediastinum: There are numerous mildly enlarged mediastinal lymph nodes which measure up to 10 mm in short axis. Lucy: Not well assessed without IV contrast. Axillae: There is no axillary lymphadenopathy. Upper abdomen: Partially visualized upper abdominal viscera is within normal limits. Skeletal structures: The skeletal structures are osteopenic. No lytic or blastic bony lesions are see n. Soft tissues: Gynecomastia is noted. IMPRESSION: 1. Cardiomegaly with evidence of congestive failure. 2. Patchy ground glass consolidation is seen throughout both lungs and likely represents interstitial edema. Correlate clinically for evidence of a superimposed infectious/inflammatory pneumonitis. Radi ographic follow-up to resolution is recommended. 3. Small to moderate pleural effusions with associated bibasilar atelectasis. 4. Mildly enlarged mediastinal lymph nodes are nonspecific and likely on a reactive basis. ACT 112: Negative or not required by law. Electronically signed by: Alexandru Centeno M.D. 12/12/2019 3:32 PM
--- NOTE | 2019-12-12 15:36 | Electrocardiogram Report ---
Test Reason : Blood Pressure : / mmHG Vent. Rate : 069 BPM Atrial Rate : 326 BPM P-R Int : 000 ms QRS Dur : 094 ms QT Int : 420 ms P-R-T Axes : 000 051 116 degrees QTc Int : 450 ms Atrial fibrillation Poor R wave progression, consider anterior DC vs. lead placement vs. LVH Abnormal ECG No previous ECGs available Confirmed by Mack Alba ([id number]) on 12/12/2019 3:36:26 PM Referred By: REFERRED SELF Confirmed By:Dennys Alba
[2019-12-12] MEDS: MAGNESIUM SULFATE / D5W 1 GM/100 ML BAG IV SCH ×2 (17:01→19:26)
[2019-12-12] MEDS: DOXYCYCLINE HYCLATE 100 MG in DEXTROSE 5% 100 ML IV SCH (17:01)
--- NOTE | 2019-12-12 17:01 | Cardiology Consultation ---
Date of Consultation December 12, 2019 Assessment & Plan (1) Acute respiratory failure with hypoxia: (2) Acute kidney injury superimposed on CKD: (3) Chronic atrial fibrillation: (4) Hyponatremia: (5) Coronary artery disease: Patient is a 74-year-old male with a complex history and only limited care locally. Patient presents now with hypoxic respiratory failure after IV fluid resuscitation for hyponatremia 2 days prior. Patient has underlying known vascular disease coronary and carotid but no prior documented history of congestive heart failure LV dysfunction per patient he does note a prior myocardial infarction. Chest x-ray and CT scan demonstrates diffuse interstitial edema versus pulmonary infiltrates. Cardiomegaly is present on x-ray and CT scan. No dynamic ST segment changes with Q waves on EKG in the septal lead Findings are suspicious for acute on chronic congestive heart failure, probable ischemic cardiomyopathy. Patient hypertensive on presentation and moderate respiratory distress Underlying pulmonary infiltrates not completely excluded, initial COVID screen negative and patient afebrile Plan: Obtain prior records if possible continue beta-robby therapy as originally ordered. Agree with holding valsartan given worsening renal function. Topical nitrates will be added for preload reduction Patient should continue to manifest diuresis, would follow I's and outs closely. Patient will warrant likely additional diuretics this evening Pulmonary status remains tenuous Echocardiogram imaging ordered, pending Nephrology input pending Will discuss with primary service need for close clinical follow-up History of Present Illness Reason for Consultation: Hypoxic respiratory failure Requesting Physician: Dr Felix Attending Physician: Mal Felix MD History of Present Illness Patient is a complex 74-year-old male with limited local medical care whose underlying history is notable for per review with patient 1. Atherosclerotic coronary artery disease with prior myocardial infarction and coronary artery stenting on 2 separate occasions 2. Chronic atrial fibrillation on chronic anticoagulation with Eliquis 3. Atherosclerotic carotid disease status post bilateral carotid enterectomy and subsequent bilateral carotid artery stenting 4. Diabetes mellitus insulin requiring with chronic kidney disease 5. Longstanding hypertension 6. Hyperlipidemia Patient presents this admission noting several days ago feeling weak and fatigued. He is felt this in past has been associated with hyponatremia and has per his description received IV normal saline for complaints. He presented to the emergency room where he was given 2 L normal saline IV on 12/10/2019. He initially felt improved however the next day developed a cough and orthopnea complaints he was seen in the emergency room and refused further interventions other than oral antibiotic. Chest x-ray did demonstrate increased vasculature. Patient re-presented today with significant dyspnea and orthopnea throughout the night resulting in repeat ER visit. Chest x-ray and CT scan of the chest demonstrates diffuse changes consistent with pulmonary edema though infiltrate not completely excluded. Patient denies febrile illness though has had cough weight is up 5 pounds. No recent chest pains tachypalpitations syncope or near syncope. No bleeding difficulties with patient on chronic anticoagulation. No recent changes in medications. 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 Last primary care visit via telephone Allergies Allergy/AdvReac Type Severity Reaction Status Date / Time oxycodone [From Percocet] AdvReac Mild Nausea Verified 12/12/19 11:29 Home Medications Home Medications Medication Instructions Recorded Confirmed Type Nona Andino U-100 Insulin 30 unit SUBCUT HS 05/10/18 12/12/19 History Eliquis 5 mg PO BID 05/10/18 12/12/19 History Januvia 50 mg PO QAM 05/10/18 12/12/19 History allopurinol 300 mg PO QAM 05/10/18 12/12/19 History amlodipine 5 mg PO HS 05/10/18 12/12/19 History atenolol 25 mg PO HS 05/10/18 12/12/19 History atenolol 50 mg PO QAM 05/10/18 12/12/19 History atorvastatin 40 mg PO HS 05/10/18 12/12/19 History digoxin 0.125 mg PO SUMOWEFR 05/10/18 12/12/19 History ergocalciferol (vitamin D2) 50,000 unit PO UD 05/10/18 12/12/19 History [Vitamin D2] fenofibric acid (choline) 135 mg PO QAM 05/10/18 12/12/19 History omega 2-scd-qer-fish oil [Fish Oil] 2 cap PO BID 05/10/18 12/12/19 History valsartan 160 mg PO QAM 05/10/18 12/12/19 History aspirin [Aspir-81] 81 mg PO QAM 12/10/19 12/12/19 History doxycycline hyclate 100 mg PO BID 10 Days #20 tab 12/10/19 12/12/19 Rx hydrochlorothiazide 25 mg PO QAM 12/10/19 12/12/19 History Patient History Medical History Atrial fibrillation Carotid artery stenosis Diabetes mellitus, type 2 Gout Hyperlipidemia Hypertension Kidney function abnormal "REDUCED KIDNEY FUNCTION" Osteoarthritis Surgical History History of cardiac cath HEART CATH X 2 (10 YEARS AGO) History of carotid endarterectomy RT/LEFT SIDE WITH STENTS INSERTIONS BILAT. History of colonoscopy History of heart artery stent 10 YEARS AGO (2 TOTAL STENTS) History of left cataract extraction 04/2018: Was given 2mg of versed without apparent complications History of tooth extraction Hx of LASIK PRK BILAT EYES Family History Grandmother (Paternal) Family history of diabetes mellitus Sister Family history of diabetes mellitus Mother Family hx of colon cancer Father AAA (abdominal aortic aneurysm) Social History Preferred Language: Sinhala Communication Ability: Effective Sausage Stuffer Required: No Beliefs That Will Affect Care: None Current Living Situation: Spouse Other Information That Helps Us Care for You: No Feels Safe at Home: Yes Safety Concerns: Feels Safe At This Time Smoking Status: Never smoker Second Hand Exposure: No ; Hx Alcohol Use: No Hx Substance Use: No Review of Systems Review of Systems: All systems reviewed & are unremarkable except as noted in HPI & below Physical Exam Constitutional: well nourished Wearing oxygen mask on 100% nonrebreather r Eyes: PERRL, conjunctivae normal, anicteric sclerae ENMT: external ear and nose normal, oropharynx normal Neck: trachea midline, no thyromegaly Bilateral carotid endarterectomy scars present Respiratory: Auscultation: + rales Bibasilar rales and scattered wheezes with cough Cardiovascular: Rate/Rhythm: + irregularly irregular Heart Sounds: normal S1, normal S2 and + murmur (Grade 1/6 systolic); no gallop Palpation: normal PMI (PMI enlarged) Vessels: + JVD, normal carotid upstroke and radial pulses present; no carotid bruit Extremities: no edema Gastrointestinal (Abdomen): normal bowel sounds, soft, nontender, no hepatosplenomegaly Musculoskeletal: no cyanosis or clubbing, extremities motor strength 5/5 Skin: no rashes, warm and dry Neurologic: PERRL, EOMI, accommodation nl, no face palsy, no dysarthria Psychiatric: A+Ox3, euthymic affect Results & Data ([facility]) Vital Signs (Past 12 Hours) Vital Signs Temp Pulse Pulse Resp BP BP Pulse Ox 12/12/19 14:33 37.1 C 66 22 162/84 H 91 12/12/19 13:30 66 23 154/87 H 91 12/12/19 13:01 63 25 H 170/85 H 90 12/12/19 12:30 60 25 H 160/84 H 90 12/12/19 12:00 63 20 161/82 H 91 12/12/19 11:30 60 23 150/77 H 92 12/12/19 11:00 68 24 171/79 H 90 12/12/19 10:57 61 24 152/73 H 89 L 12/12/19 10:47 86 L 12/12/19 10:42 79 L 12/12/19 10:02 37.1 C 64 18 157/67 H 96 Laboratory Results Laboratory Results - last 24 hr 12/12/19 12/12/19 12/12/19 10:55 10:55 10:55 WBC 10.82 H RBC 3.78 L Hgb 11.8 L Hct 32.8 L MCV 86.8 MCH 31.2 MCHC 36.0 RDW Std Deviation 47.9 H RDW Coeff of Aleksandra 15.1 H Plt Count 137 MPV 10.2 Immature Gran % (Auto) 0.2 Neut % (Auto) 84.7 Lymph % (Auto) 9.1 Ida % (Auto) 5.8 Eos % (Auto) 0.1 Baso % (Auto) 0.1 Neut # (Auto) 9.17 H Lymph # (Auto) 0.98 L Ida # (Auto) 0.63 H Eos # (Auto) 0.01 Baso # (Auto) 0.01 Immature Gran # (Auto) 0.02 PT 13.9 H INR 1.3 H APTT 42.6 H PTT Ratio 1.5 ABG pH ABG pCO2 ABG pO2 ABG HCO3 ABG O2 Saturation ABG Base Excess Donnell Test Barometric Pressure Oxygen Given Sodium 124 L Potassium 3.9 Chloride 93 L Carbon Dioxide 21 Anion Gap 10.0 BUN 40 H Creatinine 2.19 H Est Cr Clr Drug Dosing 29.1 Est GFR ( Amer) 32.9 Est GFR (Non-Af Amer) 28.4 BUN/Creatinine Ratio 18.5 Glucose 213 H Lactate Calcium 8.5 Magnesium 1.5 L Total Bilirubin 1.4 H AST 42 H ALT 38 Alkaline Phosphatase 52 Troponin I 0.033 NT-Pro-B Natriuret Pep 95561 H Total Protein 7.4 Albumin 3.0 L Globulin 4.4 H Albumin/Globulin Ratio 0.7 L Procalcitonin Urine Color Urine Appearance Urine pH Ur Specific Wynne Urine Protein Urine Glucose (UA) Urine Ketones Urine Blood Urine Nitrite Urine Bilirubin Urine Urobilinogen Ur Leukocyte Esterase Urine WBC (Auto) Urine RBC (Auto) U Hyaline Cast (Auto) U Epithel Cells (Auto) Urine Bacteria (Auto) Digoxin COVID-19 PCR SARS-CoV-2 RNA (RT-PCR) 12/12/19 12/12/19 12/12/19 10:55 10:55 11:18 WBC RBC Hgb Hct MCV MCH MCHC RDW Std Deviation RDW Coeff of Aleksandra Plt Count MPV Immature Gran % (Auto) Neut % (Auto) Lymph % (Auto) Ida % (Auto) Eos % (Auto) Baso % (Auto) Neut # (Auto) Lymph # (Auto) Ida # (Auto) Eos # (Auto) Baso # (Auto) Immature Gran # (Auto) PT INR APTT PTT Ratio ABG pH ABG pCO2 ABG pO2 ABG HCO3 ABG O2 Saturation ABG Base Excess Donnell Test Barometric Pressure Oxygen Given Sodium Potassium Chloride Carbon Dioxide Anion Gap BUN Creatinine Est Cr Clr Drug Dosing Est GFR ( Amer) Est GFR (Non-Af Amer) BUN/Creatinine Ratio Glucose Lactate 1.4 Calcium Magnesium Total Bilirubin AST ALT Alkaline Phosphatase Troponin I NT-Pro-B Natriuret Pep Total Protein Albumin Globulin Albumin/Globulin Ratio Procalcitonin 0.66 H Urine Color Urine Appearance Urine pH Ur Specific Wynne Urine Protein Urine Glucose (UA) Urine Ketones Urine Blood Urine Nitrite Urine Bilirubin Urine Urobilinogen Ur Leukocyte Esterase Urine WBC (Auto) Urine RBC (Auto) U Hyaline Cast (Auto) U Epithel Cells (Auto) Urine Bacteria (Auto) Digoxin 0.7 L COVID-19 PCR SARS-CoV-2 RNA (RT-PCR) 12/12/19 12/12/19 12/12/19 11:20 11:30 11:30 WBC RBC Hgb Hct MCV MCH MCHC RDW Std Deviation RDW Coeff of Aleksandra Plt Count MPV Immature Gran % (Auto) Neut % (Auto) Lymph % (Auto) Ida % (Auto) Eos % (Auto) Baso % (Auto) Neut # (Auto) Lymph # (Auto) Ida # (Auto) Eos # (Auto) Baso # (Auto) Immature Gran # (Auto) PT INR APTT PTT Ratio ABG pH Cancelled ABG pCO2 Cancelled ABG pO2 Cancelled ABG HCO3 Cancelled ABG O2 Saturation Cancelled ABG Base Excess Cancelled Donnell Test Cancelled Barometric Pressure Cancelled Oxygen Given Cancelled Sodium Potassium Chloride Carbon Dioxide Anion Gap BUN Creatinine Est Cr Clr Drug Dosing Est GFR ( Amer) Est GFR (Non-Af Amer) BUN/Creatinine Ratio Glucose Lactate Calcium Magnesium Total Bilirubin AST ALT Alkaline Phosphatase Troponin I NT-Pro-B Natriuret Pep Total Protein Albumin Globulin Albumin/Globulin Ratio Procalcitonin Urine Color Urine Appearance Urine pH Ur Specific Wynne Urine Protein Urine Glucose (UA) Urine Ketones Urine Blood Urine Nitrite Urine Bilirubin Urine Urobilinogen Ur Leukocyte Esterase Urine WBC (Auto) Urine RBC (Auto) U Hyaline Cast (Auto) U Epithel Cells (Auto) Urine Bacteria (Auto) Digoxin COVID-19 PCR NEGATIVE SARS-CoV-2 RNA (RT-PCR) Cancelled 12/12/19 12/12/19 12/12/19 12:14 12:53 16:30 WBC RBC Hgb Hct MCV MCH MCHC RDW Std Deviation RDW Coeff of Aleksandra Plt Count MPV Immature Gran % (Auto) Neut % (Auto) Lymph % (Auto) Ida % (Auto) Eos % (Auto) Baso % (Auto) Neut # (Auto) Lymph # (Auto) Ida # (Auto) Eos # (Auto) Baso # (Auto) Immature Gran # (Auto) PT INR APTT PTT Ratio ABG pH 7.47 H ABG pCO2 30 L ABG pO2 58 L ABG HCO3 21 ABG O2 Saturation 88.8 L ABG Base Excess -1.5 Donnell Test Pos Barometric Pressure 733.3 Oxygen Given 15 L Sodium Potassium Chloride Carbon Dioxide Anion Gap BUN Creatinine Est Cr Clr Drug Dosing Est GFR ( Amer) Est GFR (Non-Af Amer) BUN/Creatinine Ratio Glucose Lactate Calcium Magnesium Total Bilirubin AST ALT Alkaline Phosphatase Troponin I NT-Pro-B Natriuret Pep Total Protein Albumin Globulin Albumin/Globulin Ratio Procalcitonin Urine Color Yellow Urine Appearance Clear Urine pH 5.0 Ur Specific Wynne 1.028 Urine Protein 1+ H Urine Glucose (UA) 2+ H Urine Ketones Negative Urine Blood Trace H Urine Nitrite Negative Urine Bilirubin Negative Urine Urobilinogen Negative Ur Leukocyte Esterase Negative Urine WBC (Auto) 0 Urine RBC (Auto) 0-4 U Hyaline Cast (Auto) 1-5 U Epithel Cells (Auto) 5-10 H Urine Bacteria (Auto) Negative Digoxin COVID-19 PCR SARS-CoV-2 RNA (RT-PCR) Pending
[2019-12-12] MEDS ORDERED: FUROSEMIDE 40 MG in SYRINGE 0 ML IV ONE (17:28)
[2019-12-12 17:33] LABS: BUN Creatinine Ratio 18.7 (10-20); Calcium 8.9 mg/dl (8.5-10.1); Creatinine Clr Calc Pharmacy 30.2 ml/min; Est GFR (African American) 34.4; Est GFR (Non-African American) 29.7; Potassium 3.7 mmol/L (3.5-5.1)
[2019-12-12 17:42] LABS: Troponin I 0.05 ng/ml (0-0.045)
[2019-12-12] MEDS ORDERED: POTASSIUM CHLORIDE 20 MEQ TABCR PO STA (18:34)
[2019-12-12] MEDS: NITROGLYCERIN 2% OINTMENT 30GM TUBE EXT SCH ×2 (18:38→23:17)
[2019-12-12] MEDS: FENOFIBRATE: ORDER AWAITING ACTION SCH ×2 (18:42→23:30)
[2019-12-12] MEDS: INSULIN ASPART 100 UNITS/ML 3 ML PEN SC SCH ×2 (18:48→21:08)
[2019-12-12] MEDS: cefTRIAXone SODIUM 2,000 MG in DEXTROSE 5% 50 ML IV SCH (19:41)
[2019-12-12] MEDS ORDERED: ALBUTEROL 0.083% NEBU SOLN 3 ML VIAL NEB PRN (20:28)
[2019-12-12] MEDS: APIXABAN 5 MG TABLET PO SCH (20:53)
[2019-12-12] MEDS: AMLODIPINE BESYLATE 5 MG TAB PO SCH (20:54)
[2019-12-12] MEDS: OMEGA-3 (PURIFIED FISH OIL) 1 GM CAP PO SCH (20:54)
[2019-12-12] MEDS: ATORVASTATIN 40 MG TAB PO SCH (20:55)
[2019-12-12] MEDS: ATENOLOL 25 MG TABLET PO SCH (20:55)
[2019-12-12 21:08] LABS: Creatinine Urine Random 22.7 mg/dl; Urine Potassium 26.6 mmol/L
[2019-12-12] MEDS: INSULIN GLARGINE SOLOSTAR 100 UNITS/ML 3 ML PEN SC SCH (21:08)
[2019-12-12 23:39] LABS: BUN Creatinine Ratio 19.4 (10-20); Calcium 8.4 mg/dl (8.5-10.1); Creatinine Clr Calc Pharmacy 27.8 ml/min; Est GFR (Non-African American) 26.8; Potassium 3.8 mmol/L (3.5-5.1)
[2019-12-12 23:51] LABS: Troponin I 0.076 ng/ml (0-0.045)
[2019-12-13] MEDS: NITROGLYCERIN 2% OINTMENT 30GM TUBE EXT SCH ×3 (05:07→16:59)
[2019-12-13] MEDS: DOXYCYCLINE HYCLATE 100 MG in DEXTROSE 5% 100 ML IV SCH ×2 (05:07→17:52)
[2019-12-13 06:29] LABS: Hemoglobin 10.9 g/dL (14.0-18.0); Mean Corpuscular Hemoglobin 31.4 pg (25-34); Mean Corpuscular Hgb Conc 36.3 g/dL (32-36); Mean Corpuscular Volume 86.5 fL (80-100); Mean Platelet Volume 10.5 fL (7.4-10.4); Platelet Count 134 K/uL (130-400); RDW Standard Deviation 46.9 fL (36.4-46.3); Red Blood Count 3.47 M/uL (4.7-6.1); White Blood Count 7.82 K/uL (4.8-10.8)
[2019-12-13 07:04] LABS: BUN Creatinine Ratio 19.8 (10-20); Calcium 8.3 mg/dl (8.5-10.1); Creatinine Clr Calc Pharmacy 29.5 ml/min; Est GFR (African American) 33.5; Est GFR (Non-African American) 28.9; Magnesium 1.9 mg/dl (1.8-2.4); Potassium 3.7 mmol/L (3.5-5.1)
[2019-12-13] MEDS: allopurinoL 300 MG TAB PO SCH (07:47)
[2019-12-13] MEDS: OMEGA-3 (PURIFIED FISH OIL) 1 GM CAP PO SCH ×2 (07:47→19:56)
[2019-12-13] MEDS: FENOFIBRATE: ORDER AWAITING ACTION SCH ×2 (07:47→15:38)
[2019-12-13] MEDS: ASPIRIN 81 MG ECTAB PO SCH (07:47)
[2019-12-13] MEDS: APIXABAN 5 MG TABLET PO SCH ×2 (07:47→19:55)
[2019-12-13] MEDS: ATENOLOL 50 MG TABLET PO SCH (07:49)
[2019-12-13 08:15] LABS: Estimated Average Glucose 189 mg/dl; Hemoglobin A1C 8.2 % (4.5-5.6)
[2019-12-13] MEDS: INSULIN ASPART 100 UNITS/ML 3 ML PEN SC SCH ×4 (08:15→20:47)
[2019-12-13] MEDS ORDERED: FUROSEMIDE 40 MG in SYRINGE 0 ML IV SCH (10:30)
[2019-12-13 10:32] LABS: iSTAT Arterial Blood Gas pH 7.46 (7.35-7.45); iSTAT Hematocrit 34 % (42-52); iSTAT Hemoglobin 11.6 g/dl (14.0-18.0); iSTAT Potassium 3.7 mmol/L (3.3-5.0); iSTAT Sodium 123 mmol/L (135-144)
[2019-12-13 10:33] LABS: iSTAT Arterial Blood Gas HCO3 21 meg/L (19-24); iSTAT Arterial Blood Gas pCO2 30 mmHg (35-46); iSTAT Arterial Blood Gas pO2 42 mmHg (80-95); iSTAT Carbon Dioxide 22 mmol/L (24-31); iSTAT Sample Type Arterial
--- NOTE | 2019-12-13 10:34 | Nephrology Consultation ---
Date of Consultation December 13, 2019 Assessment & Plan (1) Hyponatremia: Hypervolemic hyponatremia in the setting of acute hypoxic respiratory failure from acute heart failure versus PNA. Sodium 127 on December 07, presented with sodium 124 on December 11 with angelica 123 11 PM on December 11. Sodium 127 this morning. Patient reports history of hyponatremia in the past, extensive enough him to be familiar with symptoms. He is also on hydrochlorothiazide chronically. Goal/highest acceptable target sodium is 133 for tomorrow morning. He is correcting at an acceptable rate Needs daily standing weights and so ordered Continue strict I's and O's Ordered fluid restriction 1.2 L daily Continue low-sodium diet Maintain potassium of 4: Started standing potassium 20 mEq twice daily Follow-up pending echocardiogram Check TSH with next labs - order in for this and bmp 1530 Continue to hold hydrochlorothiazide and pls list as drug intolerance -lasix standing dose ordered 40 mg IV bid17, first dose 10 am Present on Admission?: Yes (2) Acute kidney injury superimposed on CKD: Patient reports baseline creatinine 1.5-1.8. He was 1.8 on December 07 on outpatient doses of valsartan and hydrochlorothiazide. He presented with serum creatinine 2.2 on December 11, essentially unchanged today. Peak creatinine so far 2.3 December 11 2300. Serum albumin and urine sediment suggestive of significant proteinuria Continue to hold ARB and thiazide Quantify proteinuria studies ordered Daily basic metabolic panel Present on Admission?: Yes History of Present Illness Reason for Consultation: Hyponatremia and acute kidney injury Requesting Physician: Dr Felix Attending Physician: Destinee Lovett, History of Present Illness 74-year-old male with coronary artery disease status post remote stents, insulin-dependent diabetes x 20+ years, hypertension on hydrochlorothiazide, atrial fibrillation on Eliquis, carotid artery disease status post carotid endarterectomy and stenting 1999 approx, recurrent hyponatremia, gout, and reported CKD was admitted last evening for acute hypoxic respiratory failure along with acute kidney injury and hyponatremia. Patient lives here but travels extensively for work; gets his primary and cardiology care in [place] and so little local data available about baseline labs. He tells me his baseline creatinine is 1.5-1.8 x "30 years." He also tells me that his sNa runs "in the 120s" x years and that he started hctz a few years ago with dose doubled earlier this year. Has been to ER 3-4 times past 5 years for symptomatic hypovolemic hyponatremia but none in past year. He presented to the [facility] emergency department a few days ago with sx of dehydration he says typically is how hyponatremia presents for him. He received 2 L normal saline in the ER. Serum creatinine at that December 07 encounter was 1.8 with serum sodium 127. He presented again with complaints of nonproductive cough December 09, treated with doxycycline. CXR that presentation wtih emerging plm edema versus multifocal PNA. On presentation yesterday, creatinine was 2.2 with a serum sodium of 124. The patient required a 15 L nonrebreather to maintain oxygen sats in the ER and is currently on high flow nasal cannula at 70% (02 needs down slightly). Per nursing and pt he is much less symptomatic w/ getting up to void for example C 19 testing is negative x 2. He presented yesterday with dyspnea and a 5-8 pound weight gain within 1 week as well as some abdominal distention. No lower extremity edema. Note no prior history of heart failure. His pro BNP on presentation was over 12,000. Chest x-ray and CT consistent with pulmonary edema. He was given to doses of IV Lasix 40 mg, last 1 at 1730 yesterday. He also received Zosyn and 2 g of vancomycin. Agnesian was supplemented. He is currently receiving ceftriaxone and doxycycline. He is 1.5 L negative this morning, with sodium 127 and creatinine 2.2. Angelica sodium was 123 last evening. no OP nephrology care though had it briefly in past; no nsaid use chronically; walks at least a mile most days of the week generally and does not need to stop d/t fatigue, dyspnea, or claudication. Allergies Allergy/AdvReac Type Severity Reaction Status Date / Time oxycodone [From Percocet] AdvReac Mild Nausea Verified 12/12/19 11:29 Home Medications Home Medications Medication Instructions Recorded Confirmed Type Basaglar PapiikPen U-100 Insulin 30 unit SUBCUT HS 05/10/18 12/12/19 History Eliquis 5 mg PO BID 05/10/18 12/12/19 History Januvia 50 mg PO QAM 05/10/18 12/12/19 History allopurinol 300 mg PO QAM 05/10/18 12/12/19 History amlodipine 5 mg PO HS 05/10/18 12/12/19 History atenolol 25 mg PO HS 05/10/18 12/12/19 History atenolol 50 mg PO QAM 05/10/18 12/12/19 History atorvastatin 40 mg PO HS 05/10/18 12/12/19 History digoxin 0.125 mg PO SUMOWEFR 05/10/18 12/12/19 History ergocalciferol (vitamin D2) 50,000 unit PO UD 05/10/18 12/12/19 History [Vitamin D2] fenofibric acid (choline) 135 mg PO QAM 05/10/18 12/12/19 History omega 8-bpp-oxa-fish oil [Fish Oil] 2 cap PO BID 05/10/18 12/12/19 History valsartan 160 mg PO QAM 05/10/18 12/12/19 History aspirin [Aspir-81] 81 mg PO QAM 12/10/19 12/12/19 History doxycycline hyclate 100 mg PO BID 10 Days #20 tab 12/10/19 12/12/19 Rx hydrochlorothiazide 25 mg PO QAM 12/10/19 12/12/19 History Patient History Family History Grandmother (Paternal) Family history of diabetes mellitus Sister Family history of diabetes mellitus Mother Family hx of colon cancer Father AAA (abdominal aortic aneurysm) Social History Preferred Language: Andorran Communication Ability: Effective School Admissions Representative Required: No Beliefs That Will Affect Care: None Current Living Situation: Spouse Other Information That Helps Us Care for You: No Feels Safe at Home: Yes Safety Concerns: Feels Safe At This Time Smoking Status: Never smoker Second Hand Exposure: No ; Hx Alcohol Use: No Hx Substance Use: No Review of Systems Review of Systems: All systems reviewed & are unremarkable except as noted in HPI & below Physical Exam Constitutional: well developed and well nourished; no acute distress on high flow 02 Eyes: EOM intact bilaterally ENMT: Ears: no external ear abnormality Nose: no external nose abnormality Mouth: + dry oral mucous membranes Neck: no nuchal rigidity Respiratory: normal respiratory effort Auscultation: + diminished lung sounds (otilia R base) and + crackles (fine, insp BL bases) Cardiovascular: Rate/Rhythm: + irregularly irregular (distant HS) Extremities: no edema Gastrointestinal (Abdomen): Inspection/Auscultation: normal bowel sounds Percussion/Palpation: abdomen soft; abdomen nontender Musculoskeletal: Extremities: strength 5/5 throughout Skin: no rashes, warm and dry Neurologic: bailey, fluent speech, no tremor Psychiatric: A+Ox3, euthymic affect Genitourinary: no amato Results & Data Vital Signs (Past 12 Hours) Vital Signs Temp Pulse Pulse Resp BP Pulse Ox 12/13/19 08:45 62 12/13/19 07:54 36.8 C 72 18 116/69 96 12/13/19 07:39 52 L 18 96 12/13/19 05:08 36.9 C 64 24 143/65 H 98 12/13/19 03:50 62 20 93 12/13/19 00:00 37.5 C 85 75 162/82 H 91 Laboratory Results 12/13/19 05:44 12/13/19 05:44 Serum osmolality 277, serum albumin 3.0, urine osmolality 338, random urine sodium 90 (urine studies obtained at midnight) Urinalysis: Clear yellow urine specific gravity 1028 with 1+ protein, 2+ glucose, no ketones or bacteria or other indices apart from 5-10 epithelial cells per high-powered field and trace blood COVID testing negative x2 ECG unchanged Diagnostic Findings Chest x-ray: Slightly progressive bilateral parenchymal infiltrates versus components of pulmonary edema Noncon chest CT: 1. Cardiomegaly with evidence of congestive failure. 2. Patchy ground glass consolidation is seen throughout both lungs and likely represents interstitial edema. Correlate clinically for evidence of a superimposed infectious/inflammatory pneumonitis. Radiographic follow-up to resolution is recommended. 3. Small to moderate pleural effusions with associated bibasilar atelectasis. 4. Mildly enlarged mediastinal lymph nodes are nonspecific and likely on a reactive basis.
[2019-12-13] MEDS: POTASSIUM CHLORIDE 20 MEQ TABCR PO SCH ×2 (11:42→19:54)
[2019-12-13 12:24] LABS: Creatinine Urine Random 90.9 mg/dl; Protein Creatinine Ratio Urine 0.7 (0-0.2); Total Protein Urine Random 63.7 mg/dl (0-11.9)
--- NOTE | 2019-12-13 14:58 | Hospitalist Progress Note ---
Date of Service December 13, 2019 Assessment & Plan (1) Acute respiratory failure with hypoxia: Likely 2/2 CHF with pulmonary edema. Responding well to diuretics. Cards and Nephro on board and managing fluid status and hyponatremia. Echo planned for am. Cont support with high flow oxygen at 70%. Covid test was negative. Compliance with Eliquis so PE thought unlikely. There was some question on imaging if interstitial edema or infiltrates were present, so he is also being covered with Ceftriaxone and Doxycycline for pneumonia. Elevated BNP supports CHF. Await echo in am. (2) Hyponatremia: thought 2/2 hypervolemia from CHF exacerbation. Cont diuresis, fluid restriction and salt restriction per Nephro. (3) Acute kidney injury superimposed on CKD: Valsartan held with worsened creatinine. Cont current therapy. Awaiting OSH records. (4) Hypertension: Cont amlodipine, atenolol and Lasix. HCTZ stopped and Valsartan held in setting of SONIA. Cont low salt diet. Around goal today. (5) Atrial fibrillation: -rate controlled on dig and atenolol and anticoagulated on Eliquis (6) Diabetes mellitus, type 2: uncontrolled DMII with A1C of 8.2. Cont basal bolus insulin while hospitalized. Will need close follow up with his PCP regarding treatment modifications to achieve a lower A1C<7. (7) Coronary artery disease: chronic CAD reported. Pt also has carotid artery disease. Denies chest pain. Cont medical management with ASA, [id number], beta robby, fenofibrate (order awaiting action). Cont to optimize A1C as above. (8) DVT prophylaxis: -on Eliquis DNR/DNI Dispo-uncertain. Patient still on high flow oxygen. DO [facility] Hospitalist Admission and Anticipated Discharge Date Admission Date: December 12, 2019 Subjective 74 yo M presented feeling he was dehydrated, was found to be hyponatremic and was given IVF resulting in worsening SOB and fluid overload 2/2 pulmonary edema. He reports feeling improved and is ready to go home today. However, he is still requiring high flow oxygen @ 70% FiO2 at rest. Review of Systems Review of Systems: All systems reviewed & are unremarkable except as noted in Subjective Physical Exam Physical Exam: CONSTITUTIONAL: WNWD, vitals as above, generally well- appearing EYES: pupils are equal and round bilaterally, normal conjunctivae, no scleral icterus ENT: external ear and nose normal, MMM NECK: trachea midline, no lymphadenopathy, normal thyroid RESPIRATORY: clear to auscultation bilaterally, no crackles, rales or wheezes, normal respiratory effort, on high flow oxygen. CARDIOVASCULAR: regular rate and rhythm, S1 and 2 heard without murmurs, gallops or rubs, no JVD, no peripheral edema GASTROINTESTINAL: soft, nontender, nondistended MUSCULOSKELETAL: strength 5/5 throughout, head is normocephalic and atraumatic SKIN: warm and dry NEUROLOGIC: No facial palsy, no dysarthria. CN 2-12 grossly intact, normal cognition and speech. No gross focal deficits. PSYCHIATRIC: alert cooperative and oriented to person, place and time. Results & Data Results & Data ([facility]) Vital Signs (Past 12 Hours) Vital Signs Temp Pulse Pulse Resp BP Pulse Ox 12/13/19 14:50 62 12/13/19 11:48 36.9 C 62 20 160/75 H 95 12/13/19 11:16 61 18 95 12/13/19 08:45 62 12/13/19 07:54 36.8 C 72 18 116/69 96 12/13/19 07:39 52 L 18 96 12/13/19 05:08 36.9 C 64 24 143/65 H 98 12/13/19 03:50 62 20 93 Laboratory Results Short CBC 12/13/19 Range/Units 05:44 WBC 7.82 (4.8-10.8) K/uL Hgb 10.9 L (14.0-18.0) g/dL Hct 30.0 L (42-52) % Plt Count 134 (130-400) K/uL BMP 12/12/19 12/12/19 12/13/19 17:00 23:01 05:44 Sodium 127 L 123 L 127 L Potassium 3.7 3.8 3.7 Chloride 93 L 89 L 93 L Carbon Dioxide 24 25 26 BUN 40 H 45 H 43 H Creatinine 2.11 H 2.30 H 2.16 H Glucose 146 H 153 H 124 H Calcium 8.9 8.4 L 8.3 L Cardiac Enzymes 12/12/19 12/12/19 Range/Units 17:00 23:01 Troponin I 0.050 H* 0.076 H* (0-0.045) ng/ml Medications Administered Current Inpatient Medications Acetaminophen (Tylenol) 650 mg PO Q4H PRN PRN Reason: Pain or Fever Stop: 01/11/20 14:32 Albuterol (Ventolin 0.083% 2.5mg/3ml) 2.5 mg NEB Q6R PRN PRN Reason: Shortness Of Breath Or Wheezing Stop: 01/11/20 20:27 [facility] Stop: 01/12/20 08:59 Last Admin: 12/13/19 07:47 Dose: 300 mg Documented by: Amlodipine Besylate (Norvasc) 5 mg PO [facility] Stop: 01/11/20 20:59 Last Admin: 12/12/19 20:54 Dose: 5 mg Documented by: Apixaban (Eliquis) 5 mg PO BID [facility] Stop: 01/11/20 20:59 Last Admin: 12/13/19 07:47 Dose: 5 mg Documented by: Aspirin (Ecotrin Ectab) [address] [facility] Stop: 01/12/20 08:59 Last Admin: 12/13/19 07:47 Dose: 81 mg Documented by: Atenolol (Tenormin) 25 mg PO [facility] Stop: 01/11/20 20:59 Last Admin: 12/12/19 20:55 Dose: 25 mg Documented by: Atenolol (Tenormin) [address] [facility] Stop: 01/12/20 08:59 Last Admin: 12/13/19 07:49 Dose: Not Given Documented by: Atorvastatin Calcium (Lipitor) 40 mg PO [facility] Stop: 01/11/20 20:59 Last Admin: 12/12/19 20:55 Dose: 40 mg Documented by: Dextrose (Dextrose 50%) 25 - 50 ml IV UD PRN; Protocol PRN Reason: Hypoglycemia Protocol Stop: 01/11/20 14:32 Fish Oil (Friendship-3 (Purified Fish Oil)) 2 gm PO BID [facility] Stop: 01/11/20 20:59 Last Admin: 12/13/19 07:47 Dose: 2 gm Documented by: Glucagon (Glucagen) 1 mg SQ UD PRN; Protocol PRN Reason: Hypoglycemia Protocol Stop: 01/11/20 14:32 Glucose (Dex4 Glucose) 4 - 8 tabs PO UD PRN; Protocol PRN Reason: Hypoglycemia Protocol Stop: 01/11/20 14:32 Glucose (Glucose 40%) 15 - 30 gm PO UD PRN; Protocol PRN Reason: Hypoglycemia Protocol Stop: 01/11/20 14:32 Ceftriaxone Sodium 2,000 mg/ (Dextrose) 70 mls @ 100 mls/hr IV Q24H ADAM; Protocol Stop: 12/19/19 15:59 Last Infusion: 12/12/19 21:52 Dose: Infused Documented by: Doxycycline Hyclate 100 mg/ (Dextrose) 110 mls @ 50 mls/hr IV Q12H ADAM; Protocol Stop: 12/19/19 17:59 Last Infusion: 12/13/19 07:25 Dose: Infused Documented by: Furosemide 40 mg/ Syringe 4 mls @ 4 mls/min IV [id number] [facility] Stop: 01/12/20 10:29 Last Admin: 12/13/19 11:42 Dose: 4 mls/min Documented by: Insulin Aspart (Novolog Flexpen) 0 units SC ACHS [facility] Stop: 01/11/20 16:29 Last Admin: 12/13/19 12:10 Dose: 3 units Documented by: Insulin Glargine (Lantus Solostar Pen) 20 units SC HS [facility] Stop: 01/11/20 20:59 Last Admin: 12/12/19 21:08 Dose: 20 units Documented by: Miscellaneous (Carbohydrates For Hypoglycemia) 15 - 30 gm PO UD PRN PRN Reason: Hypoglycemia Protocol Stop: 01/11/20 14:32 Miscellaneous (Order Awaiting Action) 1 ea N/A QS [facility] Stop: 01/11/20 15:59 Last Admin: 12/13/19 07:47 Dose: Not Given Documented by: Nitroglycerin (Nitro-Bid 2%) 1 inch EXT Q6H [facility] Stop: 01/11/20 17:14 Last Admin: 12/13/19 12:04 Dose: 1 inch Documented by: Potassium Chloride (Klor-Con M20) 20 meq PO BID [facility] Stop: 01/12/20 10:29 Last Admin: 12/13/19 11:42 Dose: 20 meq Documented by:
[2019-12-13 15:41] LABS: BUN Creatinine Ratio 19.9 (10-20); Calcium 8.7 mg/dl (8.5-10.1); Creatinine Clr Calc Pharmacy 26.1 ml/min; Est GFR (African American) 28.8; Est GFR (Non-African American) 24.8; Potassium 3.9 mmol/L (3.5-5.1)
[2019-12-13 15:52] LABS: Thyroid Stimulating Hormone 0.322 uIu/ml (0.300-4.500)
[2019-12-13] MEDS: FUROSEMIDE 20 MG in SYRINGE 0 ML IV SCH (17:42)
--- NOTE | 2019-12-13 18:12 | Cardiology Progress Note ---
Date of Service December 13, 2019 Assessment & Plan (1) Acute respiratory failure with hypoxia: (2) Acute kidney injury superimposed on CKD: (3) Chronic atrial fibrillation: (4) Hyponatremia: (5) Coronary artery disease: Patient is a 74-year-old male with a complex history and only limited care locally. Patient presents now with hypoxic respiratory failure after IV fluid resuscitation for hyponatremia 2 days prior. Patient has underlying known vascular disease coronary and carotid but no prior documented history of congestive heart failure LV dysfunction per patient he does note a prior myocardial infarction. Chest x-ray and CT scan demonstrates diffuse interstitial edema versus pulmonary infiltrates. Cardiomegaly is present on x-ray and CT scan. No dynamic ST segment changes with Q waves on EKG in the septal lead Findings are suspicious for acute on chronic congestive heart failure, probable ischemic cardiomyopathy. Patient hypertensive on presentation and moderate respiratory distress Underlying pulmonary infiltrates not completely excluded, initial COVID screen negative x2 and patient afebrile Plan: Obtain prior records if possible continue beta-robby therapy as originally ordered. Agree with holding valsartan given worsening renal function. Topical nitrates will be added for preload reduction Agree with ongoing diuresis as per nephrology. Echocardiogram scheduled for first in a.m. Will discuss with primary service need for close clinical follow-up Subjective Patient seen and examined, chart, medications, telemetry reviewed. Patient still requiring high flow oxygen supplementation however improved clini johnson in comparison to day prior. No chest pains or discomfort no tachyarrhythmias. Echocardiogram still pending Patient has manifested gradual diuresis and appreciate nephrology input Physical Exam Constitutional: well nourished Eyes: PERRL, conjunctivae normal, anicteric sclerae ENMT: external ear and nose normal, oropharynx normal Neck: trachea midline, no thyromegaly Respiratory: Auscultation: + rales Cardiovascular: Rate/Rhythm: + irregularly irregular Heart Sounds: normal S1, normal S2 and + murmur (Grade 1/6 systolic); no gallop Palpation: normal PMI (PMI enlarged) Vessels: + JVD, normal carotid upstroke and radial pulses present; no carotid bruit Extremities: no edema Gastrointestinal (Abdomen): normal bowel sounds, soft, nontender, no hepat osplenomegaly Musculoskeletal: no cyanosis or clubbing, extremities motor strength 5/5 Skin: no rashes, warm and dry Neurologic: PERRL, EOMI, accommodation nl, no face palsy, no dysarthria Psychiatric: A+Ox3, euthymic affect Results & Data Vital Signs (Past 12 Hours) Vital Signs Temp Pulse Pulse Resp BP Pulse Ox 12/13/19 15:46 36.5 C 77 18 124/63 99 12/13/19 15:21 56 L 18 96 12/13/19 14:50 62 12/13/19 11:48 36.9 C 62 20 160/75 H 95 12/13/19 11:16 61 18 95 12/13/19 08:45 62 12/13/19 07:54 36.8 C 72 18 116/69 96 12/13/19 07:39 52 L 18 96 Laboratory Results Laboratory Results - last 24 hr 12/12/19 12/12/19 12/12/19 13:05 16:30 20:46 WBC RBC Hgb POC Hgb 11.6 L Hct POC Hct 34 L MCV MCH MCHC RDW Std Deviation RDW Coeff of Aleksandra Plt Count MPV Specimen Type Arterial POC pH 7.46 H POC pCO2 30 L POC pO2 42 L POC HCO3 21 POC Total CO2 22 L POC Base Excess -3.0 POC ABG O2 Sat 81.0 L POC Sodium 123 L Sodium POC Potassium 3.7 Potassium Chloride Carbon Dioxide Anion Gap BUN Creatinine Est Cr Clr Drug Dosing Est GFR ( Amer) Est GFR (Non-Af Amer) BUN/Creatinine Ratio Glucose POC Glucose 201 H Estimat Average Glucose Hemoglobin A1c Calcium Magnesium Troponin I TSH Urine Osmolality Ur Random Creatinine U Random Total Protein Ur Random Sodium Protein/Creatinin Ratio Urine Sodium Urine Potassium Urine Chloride SARS-CoV-2 RNA (RT-PCR) NEGATIVE 12/12/19 12/12/19 12/12/19 23:01 Unknown Unknown WBC RBC Hgb POC Hgb Hct POC Hct MCV MCH MCHC RDW Std Deviation RDW Coeff of Aleksandra Plt Count MPV Specimen Type POC pH POC pCO2 POC pO2 POC HCO3 POC Total CO2 POC Base Excess POC ABG O2 Sat POC Sodium Sodium 123 L POC Potassium Potassium 3.8 Chloride 89 L Carbon Dioxide 25 Anion Gap 9.0 BUN 45 H Creatinine 2.30 H Est Cr Clr Drug Dosing 27.8 Est GFR ( Amer) 31.0 Est GFR (Non-Af Amer) 26.8 BUN/Creatinine Ratio 19.4 Glucose 153 H POC Glucose Estimat Average Glucose Hemoglobin A1c Calcium 8.4 L Magnesium Troponin I 0.076 H* TSH Urine Osmolality 338 L Ur Random Creatinine 22.7 U Random Total Protein Ur Random Sodium 90 Protein/Creatinin Ratio Urine Sodium 90 Urine Potassium 26.6 Urine Chloride 112 SARS-CoV-2 RNA (RT-PCR) 12/13/19 12/13/19 12/13/19 05:44 05:44 05:44 WBC 7.82 RBC 3.47 L Hgb 10.9 L POC Hgb Hct 30.0 L POC Hct MCV 86.5 MCH 31.4 MCHC 36.3 H RDW Std Deviation 46.9 H RDW Coeff of Aleksandra 15.0 H Plt Count 134 MPV 10.5 H Specimen Type POC pH POC pCO2 POC pO2 POC HCO3 POC Total CO2 POC Base Excess POC ABG O2 Sat POC Sodium Sodium 127 L POC Potassium Potassium 3.7 Chloride 93 L Carbon Dioxide 26 Anion Gap 8.0 BUN 43 H Creatinine 2.16 H Est Cr Clr Drug Dosing 29.5 Est GFR ( Amer) 33.5 Est GFR (Non-Af Amer) 28.9 BUN/Creatinine Ratio 19.8 Glucose 124 H POC Glucose Estimat Average Glucose 189 Hemoglobin A1c 8.2 H Calcium 8.3 L Magnesium 1.9 Troponin I TSH Urine Osmolality Ur Random Creatinine U Random Total Protein Ur Random Sodium Protein/Creatinin Ratio Urine Sodium Urine Potassium Urine Chloride SARS-CoV-2 RNA (RT-PCR) 12/13/19 12/13/19 12/13/19 07:43 11:40 11:45 WBC RBC Hgb POC Hgb Hct POC Hct MCV MCH MCHC RDW Std Deviation RDW Coeff of Aleksandra Plt Count MPV Specimen Type POC pH POC pCO2 POC pO2 POC HCO3 POC Total CO2 POC Base Excess POC ABG O2 Sat POC Sodium Sodium POC Potassium Potassium Chloride Carbon Dioxide Anion Gap BUN Creatinine Est Cr Clr Drug Dosing Est GFR ( Amer) Est GFR (Non-Af Amer) BUN/Creatinine Ratio Glucose POC Glucose 143 H 164 H Estimat Average Glucose Hemoglobin A1c Calcium Magnesium Troponin I TSH Urine Osmolality Ur Random Creatinine 90.9 U Random Total Protein 63.7 H Ur Random Sodium Protein/Creatinin Ratio 0.7 H Urine Sodium Urine Potassium Urine Chloride SARS-CoV-2 RNA (RT-PCR) 12/13/19 12/13/19 15:06 16:21 WBC RBC Hgb POC Hgb Hct POC Hct MCV MCH MCHC RDW Std Deviation RDW Coeff of Aleksandra Plt Count MPV Specimen Type POC pH POC pCO2 POC pO2 POC HCO3 POC Total CO2 POC Base Excess POC ABG O2 Sat POC Sodium Sodium 129 L POC Potassium Potassium 3.9 Chloride 93 L Carbon Dioxide 27 Anion Gap 9.0 BUN 49 H Creatinine 2.45 H Est Cr Clr Drug Dosing 26.1 Est GFR ( Amer) 28.8 Est GFR (Non-Af Amer) 24.8 BUN/Creatinine Ratio 19.9 Glucose 164 H POC Glucose 175 H Estimat Average Glucose Hemoglobin A1c Calcium 8.7 Magnesium Troponin I TSH 0.322 Urine Osmolality Ur Random Creatinine U Random Total Protein Ur Random Sodium Protein/Creatinin Ratio Urine Sodium Urine Potassium Urine Chloride SARS-CoV-2 RNA (RT-PCR)
--- NOTE | 2019-12-13 19:20 | Electrocardiogram Report ---
Test Reason : Blood Pressure : / mmHG Vent. Rate : 062 BPM Atrial Rate : 031 BPM P-R Int : 000 ms QRS Dur : 096 ms QT Int : 446 ms P-R-T Axes : 000 -13 218 degrees QTc Int : 452 ms Poor data quality, interpretation may be adversely affected Atrial fibrillation Septal infarct (cited on or before 13-DEC-2019) Abnormal ECG When compared with ECG of 12-DEC-2019 10:37, Questionable change in QRS axis T wave inversion now evident in Inferior leads Confirmed by Mack Alba ([id number]) on 12/13/2019 7:20:08 PM Referred By: REFERRED SELF Confirmed By:Dennys Alba
[2019-12-13] MEDS: cefTRIAXone SODIUM 2,000 MG in DEXTROSE 5% 50 ML IV SCH (19:52)
[2019-12-13] MEDS: ATORVASTATIN 40 MG TAB PO SCH (19:55)
[2019-12-13] MEDS: AMLODIPINE BESYLATE 5 MG TAB PO SCH (19:55)
[2019-12-13] MEDS: ATENOLOL 25 MG TABLET PO SCH (19:56)
[2019-12-13] MEDS: INSULIN GLARGINE SOLOSTAR 100 UNITS/ML 3 ML PEN SC SCH (20:47)
[2019-12-14] MEDS: NITROGLYCERIN 2% OINTMENT 30GM TUBE EXT SCH ×4 (00:17→17:26)
[2019-12-14] MEDS: FENOFIBRATE: ORDER AWAITING ACTION SCH ×3 (00:42→15:22)
[2019-12-14] MEDS: DOXYCYCLINE HYCLATE 100 MG in DEXTROSE 5% 100 ML IV SCH ×2 (06:18→17:25)
[2019-12-14 07:49] LABS: BUN Creatinine Ratio 25.8 (10-20); Calcium 9.3 mg/dl (8.5-10.1); Creatinine Clr Calc Pharmacy 28.5 ml/min; Est GFR (Non-African American) 27.6; Potassium 3.7 mmol/L (3.5-5.1)
[2019-12-14] MEDS: INSULIN ASPART 100 UNITS/ML 3 ML PEN SC SCH ×4 (08:40→21:42)
[2019-12-14] MEDS: ASPIRIN 81 MG ECTAB PO SCH (08:41)
[2019-12-14] MEDS: allopurinoL 300 MG TAB PO SCH (08:41)
[2019-12-14] MEDS: APIXABAN 5 MG TABLET PO SCH ×2 (08:41→21:41)
[2019-12-14] MEDS: ATENOLOL 50 MG TABLET PO SCH (08:41)
[2019-12-14] MEDS: FUROSEMIDE 20 MG in SYRINGE 0 ML IV SCH ×2 (08:41→17:26)
[2019-12-14] MEDS: OMEGA-3 (PURIFIED FISH OIL) 1 GM CAP PO SCH ×2 (08:41→21:40)
[2019-12-14] MEDS: POTASSIUM CHLORIDE 20 MEQ TABCR PO SCH ×2 (08:42→21:40)
--- NOTE | 2019-12-14 12:44 | Cardiology Progress Note ---
Date of Service December 14, 2019 Assessment & Plan (1) Acute respiratory failure with hypoxia: (2) Acute kidney injury superimposed on CKD: (3) Chronic atrial fibrillation: (4) Hyponatremia: (5) Coronary artery disease: Patient is a 74-year-old male with a complex history and only limited care locally. Patient presents now with hypoxic respiratory failure after IV fluid resuscitation for hyponatremia 2 days prior. Patient has underlying known vascular disease coronary and carotid but no prior documented history of congestive heart failure LV dysfunction per patient he does note a prior myocardial infarction. Chest x-ray and CT scan demonstrates diffuse interstitial edema versus pulmonary infiltrates. Cardiomegaly is present on x-ray and CT scan. No dynamic ST segment changes with Q waves on EKG in the septal lead Findings are suspicious for acute on chronic congestive heart failure, Patient hypertensive on presentation and moderate respiratory distress Underlying pulmonary infiltrates not completely excluded, initial COVID screen negative x2 and patient afebrile Plan: Patient has initially begun to improve with diuresis. Still with moderately high O2 demands Echocardiogram with generally preserved LV systolic function other than mild hypokinesis inferior posterior wall with evidence of at least moderate pulmonary hypertension. Patient notes checking O2 sats at home with pulse oximetry usual oxygen saturation high 80s We will continue current therapies with mild reduction in beta-robby dosing Repeat chest x-ray reassess infiltrates and edema Subjective Patient seen and examined, chart, medications, telemetry reviewed Patient feels improved. Less dyspneic. Still with moderately high O2 demands And good diuresis overnight greater than 2 L with stable renal function Moderately bradycardic at times Physical Exam Constitutional: well nourished Eyes: PERRL, conjunctivae normal, anicteric sclerae ENMT: external ear and nose normal, oropharynx normal Neck: trachea midline, no thyromegaly Respiratory: Auscultation: + rales Cardiovascular: Rate/Rhythm: + irregularly irregular Heart Sounds: normal S 1, normal S2 and + murmur (Grade 1/6 systolic); no gallop Palpation: normal PMI (PMI enlarged) Vessels: normal carotid upstroke and radial pulses present; no carotid bruit Extremities: no edema Gastrointestinal (Abdomen): normal bowel sounds, soft, nontender, no hepatosplenomegaly Musculoskeletal: no cyanosis or clubbing, extremities motor strength 5/5 Skin: no rashes, warm and dry Neurologic: PERRL, EOMI, accommodation nl, no face palsy, no dysarthria Psychiatric: A+Ox3, euthymic affect Results & Data Vital Signs (Past 12 Hours) Vital Signs Temp Pulse Resp BP Pulse Ox 12/14/19 11:45 64 18 95 12/14/19 11:38 36.9 C 64 18 138/69 96 12/14/19 08:02 36.8 C 59 L 18 142/74 H 96 12/14/19 07:35 58 L 18 96 12/14/19 03:45 55 L 18 96 Laboratory Results Laboratory Results - last 24 hr 12/13/19 12/13/19 12/13/19 15:06 16:21 20:25 Sodium 129 L Potassium 3.9 Chloride 93 L Carbon Dioxide 27 Anion Gap 9.0 BUN 49 H Creatinine 2.45 H Est Cr Clr Drug Dosing 26.1 Est GFR ( Amer) 28.8 Est GFR (Non-Af Amer) 24.8 BUN/Creatinine Ratio 19.9 Glucose 164 H POC Glucose 175 H 186 H Calcium 8.7 TSH 0.322 12/14/19 12/14/19 12/14/19 06:35 07:30 11:18 Sodium 129 L Potassium 3.7 Chloride 95 L Carbon Dioxide 24 Anion Gap 10.0 BUN 58 H Creatinine 2.24 H Est Cr Clr Drug Dosing 28.5 Est GFR ( Amer) 32.0 Est GFR (Non-Af Amer) 27.6 BUN/Creatinine Ratio 25.8 H Glucose 109 H POC Glucose 129 H 176 H Calcium 9.3 TSH
--- NOTE | 2019-12-14 14:05 | XRay Report ---
XR chest 1V portable CLINICAL HISTORY: hypoxia,persistent COMPARISON STUDY: 12/12/2019 FINDINGS: The heart remains enlarged. There are improving bilateral pulmonary airspace opacities, lik lucille representing resolving pulmonary edema. There are small bilateral pleural effusions with residual basilar airspace opacities.[ IMPRESSION: 1. Cardiomegaly and improving pulmonary edema pattern 2. Small bilateral pleural effusions with associated basilar airspace opacities. Edema versus atelect asis favored over pneumonia ACT 112: Negative or not required by law. Electronically signed by: Wil Agrawal M.D. 12/14/2019 2:04 PM
--- NOTE | 2019-12-14 17:02 | Nephrology Progress Note ---
Date of Service December 14, 2019 Assessment & Plan (1) Hyponatremia: Hypervolemic hyponatremia in the setting of acute hypoxic respiratory failure now looking to come more from PNA than from acute heart failure. may get to point where siadh from acute/chronic lung issues more a role than hyper volemia. Sodium 127 on December 07, presented with sodium 124 on December 11 with angelica 123 11 PM on December 11. Sodium 129 this morning. 2L negative past 24 hrs; first standing wt done 12/13 am and 79.5 kg. Patient reports history of hyponatremia in the past, extensive enough him to be familiar with symptoms. He was [employer] also on hydrochlorothiazide chronically. Goal/highest acceptable target sodium is 1 35 for tomorrow morning. He is correcting at an acceptable rate. cont daily standing weights Continue strict I's and O's cont fluid restriction 1.2 L daily Continue low-sodium diet Maintain potassium of 4: cont standing potassium 20 mEq twice daily and gave extra 20 mEq x 1 cont lasix 20 mg IV bid17 (2) Acute kidney injury superimposed on CKD: Patient reports baseline creatinine 1.5-1.8. He was 1.8 on December 07 on outpatient doses of valsartan and hydrochlorothiazide. He presented with serum creatinine 2.2 on December 11, essentially unchanged past 48 hrs. Peak creatinine so far 2.5 December 12 2299. Serum albumin and urine sediment suggestive of significant proteinuria: 700 mg on spot ratio Continue to hold ARB and thiazide recommend OP nephrology care at discharge Daily basic metabolic panel Admission and Anticipated Discharge Date Admission Date: December 12, 2019 Subjective off of high flow 02 now and down to 4L; nursing thinks he may be able to go lower; no edema, no N, no voiding concerns, no cough or chills. Review of Systems Review of Systems: All systems reviewed & are unremarkable except as noted in HPI & below Physical Exam Constitutional: well developed and well nourished; no acute distress Eyes: EOM intact bilaterally ENMT: Ears: no external ear abnormality Nose: no external nose abnormality Mouth: + dry oral mucous membranes Neck: no nuchal rigidity Respiratory: normal respiratory effort Auscultation: + diminished lung sounds and + crackles (fine, insp L base) Cardiovascular: Rate/Rhythm: + irregularly irregular Extremities: no edema Gastrointestinal (Abdomen): Inspection/Auscultation: normal bowel sounds Percussion/Palpation: abdomen soft; abdomen nontender Musculoskeletal: Extremities: strength 5/5 throughout Skin: no rashes, warm and dry Neurologic: bailey, fluent speech, no tremor Psychiatric: A+Ox3, euthymic affect Results & Data ([facility]) Vital Signs (Past 12 Hours) Vital Signs Temp Pulse Resp BP Pulse Ox 12/14/19 15:44 36.8 C 67 18 152/69 H 96 12/14/19 11:45 64 18 95 12/14/19 11:38 36.9 C 64 18 138/69 96 12/14/19 08:02 36.8 C 59 L 18 142/74 H 96 12/14/19 07:35 58 L 18 96 Laboratory Results 12/13/19 05:44 12/14/19 06:35 Diagnostic Findings TTE generally preserved LV systolic function except for mild hypokinesis inferior posterior wall; and with at least moderate pulmonary hypertension; with severely dilated L atrium with aortic sclerosis not stenosis
[2019-12-14] MEDS ORDERED: POTASSIUM CHLORIDE 20 MEQ TABCR PO ONE (17:15)
[2019-12-14] MEDS ORDERED: SODIUM CHLORIDE 0.65% NA SOLN 45 ML (OCEAN) ONE (17:49)
--- NOTE | 2019-12-14 18:39 | Hospitalist Progress Note ---
Date of Service December 14, 2019 Assessment & Plan (1) Acute respiratory failure with hypoxia: Initially thought secondary to heart failure with patchy infiltrates on CT reflective of pulmonary edema. An elevated BNP of 12K was in support of this, and he has been responding well to diuretic therapy with Lasix. He does have significant proteinuria and worsened renal function from baseline that may have contributed to a fluid overload picture. CXR today is improved from two days ago. He also had a mildly elevated procalcitonin to 0.66 on admission and this may be reflective of a pulmonary infection that is also responding well to antibiotics. For now continue current treatment with antibiotics and diuresis. Continue oxygen support as needed and will consider discharge when hypoxia is resolved. Ambulate as tolerated. Notably, Covid test was negative. Compliance with Eliquis so PE thought unlikely. (2) Hyponatremia: Improved. Cont diuresis, fluid restriction per Nephro. (3) Acute kidney injury superimposed on CKD: Valsartan held with worsened creatinine. Cont current therapy. Awaiting OSH records. (4) Hypertension: Cont amlodipine, atenolol and Lasix. HCTZ stopped and Valsartan held in setting of SONIA. Cont low salt diet. Around goal today. (5) Atrial fibrillation: Rate controlled on dig and atenolol and anticoagulated on Eliquis (6) Diabetes mellitus, type 2: uncontrolled DMII with A1C of 8.2. Cont basal bolus insulin while hospitalized. Will need close follow up with his PCP regarding treatment modifications to achieve a lower A1C<7. (7) Coronary artery disease: chronic CAD reported. Pt also has carotid artery disease. Denies chest pain. Cont medical management with ASA, [id number], beta robby, fenofibrate (order awaiting action). Cont to optimize A1C as above. (8) DVT prophylaxis: -on Eliquis DNR/DNI Dispo-plan to discharge to home when hypoxia has completely resolved. Cont PCU monitoring while still requiring significant oxygen supplementation. Destinee [facility] and Anticipated Discharge Date Admission Date: December 12, 2019 Subjective Feels better today Reports abdomen feels less bloated and reports rapid 8lb weight gain in one week has now improved with Lasix Echo performed this am Pulm edema vs infectious etiology of patchy infiltrates on CT chest--possibly now leaning towards infectious? Continues on abx Tolerating PO Off high flow oxygen and now on 4L N via NC Review of Systems Review of Systems: All systems reviewed & are unremarkable except as noted in Subjective Physical Exam Physical Exam: CONSTITUTIONAL: WNWD, vitals as above, generally well- appearing EYES: pupils are equal and round bilaterally, normal conjunctivae, no scleral icterus ENT: external ear and nose normal, MMM NECK: trachea midline, no lymphadenopathy, normal thyroid RESPIRATORY: clear to auscultation bilaterally, no crackles, rales or wheezes, normal respiratory effort, on 4LPM supplemental O2 via nasal canula. CARDIOVASCULAR: regular rate and rhythm, S1 and 2 heard without murmurs, gallops or rubs, no JVD, no peripheral edema GASTROINTESTINAL: soft, nontender, nondistended MUSCULOSKELETAL: strength 5/5 throughout, head is normocephalic and atraumatic SKIN: warm and dry NEUROLOGIC: No facial palsy, no dysarthria. CN 2-12 grossly intact, normal cognition and speech. No gross focal deficits. PSYCHIATRIC: alert cooperative and oriented to person, place and time. Results & Data Results & Data ([facility]) Vital Signs (Past 12 Hours) Vital Signs Temp Pulse Resp BP Pulse Ox 12/14/19 15:44 36.8 C 67 18 152/69 H 96 12/14/19 11:45 64 18 95 12/14/19 11:38 36.9 C 64 18 138/69 96 12/14/19 08:02 36.8 C 59 L 18 142/74 H 96 12/14/19 07:35 58 L 18 96 Laboratory Results [facility] 12/14/19 06:35 Sodium 129 L Potassium 3.7 Chloride 95 L Carbon Dioxide 24 BUN 58 H Creatinine 2.24 H Glucose 109 H Calcium 9.3 Diagnostic Findings XR chest 1V portable CLINICAL HISTORY: hypoxia,persistent COMPARISON STUDY: 12/12/2019 FINDINGS: The heart remains enlarged. There are improving bilateral pulmonary airspace opacities, likely representing resolving pulmonary edema. There are small bilateral pleural effusions with residual basilar airspace opacities.[ IMPRESSION: 1. Cardiomegaly and improving pulmonary edema pattern 2. Small bilateral pleural effusions with associated basilar airspace opacities. Edema versus atelectasis favored over pneumonia Medications Administered Current Inpatient Medications Acetaminophen (Tylenol) 650 mg PO Q4H PRN PRN Reason: Pain or Fever Stop: 01/11/20 14:32 Albuterol (Ventolin 0.083% 2.5mg/3ml) 2.5 mg NEB Q6R PRN PRN Reason: Shortness Of Breath Or Wheezing Stop: 01/11/20 20:27 Allopurinol (Zyloprim) 300 mg PO QAM [facility] Stop: 01/12/20 08:59 Last Admin: 12/14/19 08:41 Dose: 300 mg Documented by: Amlodipine Besylate (Norvasc) 5 mg PO [facility] Stop: 01/11/20 20:59 Last Admin: 12/13/19 19:55 Dose: 5 mg Documented by: Apixaban (Eliquis) 5 mg PO BID [facility] Stop: 01/11/20 20:59 Last Admin: 12/14/19 08:41 Dose: 5 mg Documented by: Aspirin (Ecotrin Ectab) 81 mg PO QAM [facility] Stop: 01/12/20 08:59 Last Admin: 12/14/19 08:41 Dose: 81 mg Documented by: [facility] ([facility]ormin) [facility] Stop: 01/12/20 08:59 Last Admin: 12/14/19 08:41 Dose: 50 mg Documented by: Atorvastatin Calcium (Lipitor) 40 mg PO [facility] Stop: 01/11/20 20:59 Last Admin: 12/13/19 19:55 Dose: 40 mg Documented by: Dextrose (Dextrose 50%) 25 - 50 ml IV UD PRN; Protocol PRN Reason: Hypoglycemia Protocol Stop: 01/11/20 14:32 Fish Oil ([place]-3 (Purified Fish Oil)) 2 gm PO BID [facility] Stop: 01/11/20 20:59 Last Admin: 12/14/19 08:41 Dose: 2 gm Documented by: Glucagon (Glucagen) 1 mg SQ UD PRN; Protocol PRN Reason: Hypoglycemia Protocol Stop: 01/11/20 14:32 Glucose (Dex4 Glucose) 4 - 8 tabs PO UD PRN; Protocol PRN Reason: Hypoglycemia Protocol Stop: 01/11/20 14:32 Glucose (Glucose 40%) 15 - 30 gm PO UD PRN; Protocol PRN Reason: Hypoglycemia Protocol Stop: 01/11/20 14:32 Ceftriaxone Sodium 2,000 mg/ (Dextrose) 70 mls @ 100 mls/hr IV Q24H [facility]; Protocol Stop: 12/19/19 15:59 Last Infusion: 12/13/19 20:46 Dose: Infused Documented by: Doxycycline Hyclate 100 mg/ (Dextrose) 110 mls @ 50 mls/hr IV Q12H [facility]; Protocol Stop: 12/19/19 17:59 Last Admin: 12/14/19 17:25 Dose: 50 mls/hr Documented by: Furosemide 20 mg/ Syringe 2 mls @ 4 mls/min IV BID17 [facility] Stop: 01/12/20 17:29 Last Admin: 12/14/19 17:26 Dose: 4 mls/min Documented by: Insulin Aspart (Novolog Flexpen) 0 units SC ACHS [facility] Stop: 01/11/20 16:29 Last Admin: 12/14/19 17:26 Dose: 4 units Documented by: Insulin Glargine (Lantus Solostar Pen) 20 units SC HS [facility] Stop: 01/11/20 20:59 Last Admin: 12/13/19 20:47 Dose: 20 units Documented by: Miscellaneous (Carbohydrates For Hypoglycemia) 15 - 30 gm PO UD PRN PRN Reason: Hypoglycemia Protocol Stop: 01/11/20 14:32 Miscellaneous (Order Awaiting Action) 1 ea N/A QS [facility] Stop: 01/11/20 15:59 Last Admin: 12/14/19 15:22 Dose: Not Given Documented by: Nitroglycerin (Nitro-Bid 2%) 1 inch EXT Q6H [facility] Stop: 01/11/20 17:14 Last Admin: 12/14/19 17:26 Dose: 1 inch Documented by: Potassium Chloride (Klor-Con M20) 20 meq PO BID [facility] Stop: 01/12/20 10:29 Last Admin: 12/14/19 08:42 Dose: 20 meq Documented by:
--- NOTE | 2019-12-14 19:00 | Electrocardiogram Report ---
Test Reason : Blood Pressure : / mmHG Vent. 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
[2019-12-14] MEDS: cefTRIAXone SODIUM 2,000 MG in DEXTROSE 5% 50 ML IV SCH (21:39)
[2019-12-14] MEDS: ATORVASTATIN 40 MG TAB PO SCH (21:40)
[2019-12-14] MEDS: AMLODIPINE BESYLATE 5 MG TAB PO SCH (21:42)
[2019-12-14] MEDS: INSULIN GLARGINE SOLOSTAR 100 UNITS/ML 3 ML PEN SC SCH (21:43)
[2019-12-15] MEDS: NITROGLYCERIN 2% OINTMENT 30GM TUBE EXT SCH ×3 (00:10→12:39)
[2019-12-15] MEDS: FENOFIBRATE: ORDER AWAITING ACTION SCH ×3 (00:14→15:53)
[2019-12-15] MEDS: DOXYCYCLINE HYCLATE 100 MG in DEXTROSE 5% 100 ML IV SCH (05:56)
[2019-12-15 07:41] LABS: Hematocrit (blood only) 32.8 % (42-52); Hemoglobin 11.5 g/dL (14.0-18.0); Mean Corpuscular Hemoglobin 30.7 pg (25-34); Mean Corpuscular Hgb Conc 35.1 g/dL (32-36); Mean Corpuscular Volume 87.7 fL (80-100); Mean Platelet Volume 10.4 fL (7.4-10.4); Platelet Count 197 K/uL (130-400); RDW Standard Deviation 47.9 fL (36.4-46.3); Red Blood Count 3.74 M/uL (4.7-6.1); White Blood Count 5.44 K/uL (4.8-10.8)
[2019-12-15 08:11] LABS: BUN Creatinine Ratio 27.2 (10-20); Calcium 9.6 mg/dl (8.5-10.1); Creatinine Clr Calc Pharmacy 30.1 ml/min; Est GFR (African American) 34.2; Est GFR (Non-African American) 29.6
[2019-12-15] MEDS: FUROSEMIDE 20 MG in SYRINGE 0 ML IV SCH (08:17)
[2019-12-15] MEDS: INSULIN ASPART 100 UNITS/ML 3 ML PEN SC SCH ×2 (08:17→12:40)
[2019-12-15] MEDS: APIXABAN 5 MG TABLET PO SCH (08:18)
[2019-12-15] MEDS: allopurinoL 300 MG TAB PO SCH (08:18)
[2019-12-15] MEDS: ATENOLOL 50 MG TABLET PO SCH (08:18)
[2019-12-15] MEDS: POTASSIUM CHLORIDE 20 MEQ TABCR PO SCH (08:18)
[2019-12-15] MEDS: OMEGA-3 (PURIFIED FISH OIL) 1 GM CAP PO SCH (08:18)
[2019-12-15] MEDS: ASPIRIN 81 MG ECTAB PO SCH (08:19)
--- NOTE | 2019-12-15 11:33 | Nephrology Progress Note ---
Date of Service December 15, 2019 Assessment & Plan (1) Hyponatremia: Hypervolemic hyponatremia in the setting of acute hypoxic respiratory failure now looking to come more from PNA than from acute heart failure. may get to point where siadh from acute/chronic lung issues more a role than hyper volemia. Sodium 127 on December 07, presented with sodium 124 on December 11 with angelica 123 11 PM on December 11. Sodium 131 this morning. 1.8L negative past 24 hrs; first standing wt done 12/12 AM and was 81.5; down today to 78 kg. Patient reports history of hyponatremia in the past, extensive enough him to be familiar with symptoms. He was [employer] also on hydrochlorothiazide chronically. Goal/highest acceptable target sodium is 137 for tomorrow morning. He is correcting at an acceptable rate. cont daily standing weights Continue strict I's and O's cont fluid restriction 1.2 L daily Continue low-sodium diet Maintain potassium of 4: cont standing potassium 20 mEq twice daily cont lasix 20 mg IV bid17 for now WHEN READY TO CHANGE TO PO (if other teams agree recommend today)> recommend stop lasix, bid K and start torsemide 10 mg daily with 20 mEq K daily (2) Acute kidney injury superimposed on CKD: Patient reports baseline creatinine 1.5-1.8. He was 1.8 on December 07 on outpatient doses of valsartan and hydrochlorothiazide. He presented with serum creatinine 2.2 on December 11, essentially unchanged past 48 hrs. Peak creatinine so far 2.5 December 12 2300. Serum albumin and urine sediment suggestive of significant proteinuria: 700 mg on spot ratio Continue to hold ARB and thiazide recommend OP nephrology care at discharge > did again disc with pt Daily basic metabolic panel (3) Hypertension: Home bp meds reviewed -hold ARB for now -consider diuretic change above -cont CCB 5 mg hs >given his significant bradycardia in house (mid to low 50s wtihout sx), he is only on 50 mg daily atenolol, not his customary 50 mg AM and 25 mg PM atenolol. cardiology following and defer to them for BB recommendations >> question if change to coreg warranted Admission and Anticipated Discharge Date Admission Date: December 12, 2019 Subjective doing better today > on 02 for sleep only and on RA w/ no distress at my eval. no cough, no palpitations, no n/v, no voidign concerns or diarrhea. no edema, no rash Review of Systems Review of Systems: All systems reviewed & are unremarkable except as noted in HPI & below Physical Exam Constitutional: well developed and well nourished; no acute distress on RA, maneuvers easily for exam Eyes: EOM intact bilaterally ENMT: Ears: no external ear abnormality Nose: no external nose abnormality Mouth: + dry oral mucous membranes Neck: no nuchal rigidity Respiratory: normal respiratory effort Auscultation: lungs clear to auscultation bilaterally and + diminished lung sounds Cardiovascular: Rate/Rhythm: + irregularly irregular Extremities: no edema Gastrointestinal (Abdomen): Inspection/Auscultation: normal bowel sounds Percussion/Palpation: abdomen soft; abdomen nontender Musculoskeletal: Extremities: strength 5/5 throughout Skin: no rashes, warm and dry Neurologic: bailey, fluent speech no tremor Psychiatric: A+Ox3, euthymic affect Insight: good insight Judgement: good judgement Results & Data ([facility]) Vital Signs (Past 12 Hours) Vital Signs Temp Pulse Resp BP Pulse Ox 12/15/19 07:18 36.7 C 52 L 20 150/84 H 97 12/15/19 04:29 36.9 C 52 L 22 152/78 H 97 12/15/19 00:00 54 L 12/14/19 23:45 36.8 C 52 L 21 133/63 92 Laboratory Results 12/15/19 06:48 12/15/19 06:48
--- NOTE | 2019-12-15 13:31 | Cardiology Progress Note ---
Date of Service December 15, 2019 Assessment & Plan (1) Acute respiratory failure with hypoxia: (2) Acute kidney injury superimposed on CKD: (3) Chronic atrial fibrillation: (4) Hyponatremia: (5) Acute on chronic diastolic heart failure: (6) Coronary artery disease: Patient is a 74-year-old male with a complex history and only limited care locally. Patient presents now with hypoxic respiratory failure after IV fluid resuscitation for hyponatremia 2 days prior. Patient has underlying known vascular disease coronary and carotid but no prior documented history of congestive heart failure LV dysfunction per patient he does note a prior myocardial infarction. Chest x-ray and CT scan demonstrates diffuse interstitial edema versus pulmonary infiltrates. Cardiomegaly is present on x-ray and CT scan. No dynamic ST segment changes with Q waves on EKG in the septal lead Findings are suspicious for acute on chronic congestive heart failure, Patient hypertensive on presentation and moderate respiratory distress Underlying pulmonary infiltrates not completely excluded, initial COVID screen negative x2 and patient afebrile Plan: Acute on chronic diastolic heart failure/hyponatremia Patient has responded nicely to IV diuretics with chest x-ray and oxygenation improved. Hyponatremia improved, appreciate nephrology input. Renal function stable despite diuresis LV systolic function is normal in the setting of hypertensive heart disease and underlying coronary artery disease We will discontinue atenolol, begin Toprol for CHF guideline indicated beta- robby at reduced dose allow slightly higher heart rate. Suspect patient begin to approach euvolemia Blood pressures improved with diuresis. Currently on topical nitrates for blood pressure control in lieu of held ARB. We will change topical nitrates to oral isosorbide mononitrate 60 mg p.o. daily Subjective Patient seen and examined, chart, medications, telemetry reviewed. Looks clinically improved today now oxygenating on room air. No dizziness or lightheadedness no tachypalpitations. Relatively bradycardic overnight but no other acute complaints Review of Systems Review of Systems: All systems reviewed & are unremarkable except as noted in HPI & below Physical Exam Constitutional: WD/WN, vitals as above Eyes: PERRL, conjunctivae normal, anicteric sclerae ENMT: external ear and nose normal, oropharynx normal Neck: trachea midline, no thyromegaly Respiratory: normal respiratory effort, lungs clear to auscultation Cardiovascular: Rate/Rhythm: + irregularly irregular Heart Sounds: normal S1, normal S2 and + murmur (Grade 1/6 systolic); no gallop Palpation: normal PMI (PMI enlarged) Vessels: normal carotid upstroke and radial pulses present; no carotid bruit Extremities: no edema Gastrointestinal (Abdomen): normal bowel sounds, soft, nontender, no hepatosplenomegaly Musculoskeletal: no cyanosis or clubbing, extremities motor strength 5/5 Skin: no rashes, warm and dry Neurologic: PERRL, EOMI, accommodation nl, no face palsy, no dysarthria Psychiatric: A+Ox3, euthymic affect Results & Data Vital Signs (Past 12 Hours) Vital Signs Temp Pulse Resp BP Pulse Ox 12/15/19 11:54 36.8 C 50 L 19 136/73 93 12/15/19 07:18 36.7 C 52 L 20 150/84 H 97 12/15/19 04:29 36.9 C 52 L 22 152/78 H 97
[2019-12-15] MEDS ORDERED: ISOSORBIDE MONO EXTENDED REL 60 MG TABCR PO SCH (13:45)
--- NOTE | 2019-12-15 14:59 | Discharge Summary ---
Date of Service December 15, 2019 Admission HPI Per Admitting Provider 74 year old male with PMH CAD, DM type 2 on insulin, afib anticoagulated on Eliquis, CKD, HTN, and other problems listed below who presents to the ED for evaluation of shortness of breath. Patient was in the ED on 12/07 for evaluation of dehydration. Patient reports he was feeling weak and tired, symptoms that he has when this sodium is low and is dehydrated. He received 2L NSS. Na+ was 127. He was seen again on 12/09 for complaints of cough. He declined to have labs done. He was discharged on doxycycline. Patient reports that since returning home he has had some increasing shortness of breath. He reports orthopnea and a 5lb weight gain in the past one week. He noted some abdominal distention today. No lower extremity edema. Patient denies prior history of CHF. He denies chest pain and palpitations. No lightheadedness, dizziness, diaphoresis, or syncopal events. Reports cough has been dry and non productive. Denies fever and chills. No abdominal pain, nausea, vomiting, or diarrhea. Denies urinary symptoms. In the ED, patient was found to be hypoxic on room air at 79%. He is currently requiring 15L via NRB. He is not in respiratory distress. Other vitals are stable. Labs show WBC 10.8K, Na+ 124, creat 2.1, proBNP 12,694, and procal 0.66. CXR shows slightly progressive bilateral parenchymal infiltrates versus components of pulmonary edema. He was given Lasix 40mg IV, IV Vanco, and IV Zosyn. Admission Exam Per Admitting Provider Constitutional: WD/WN, vitals as above Eyes: PERRL, conjunctivae normal, anicteric sclerae ENMT: external ear and nose normal, oropharynx normal Respiratory: normal respiratory effort; no respiratory distress Auscultation: + crackles (BL, mid/lower lung ricketts) Cardiovascular: Rate/Rhythm: regular rate and + irregularly irregular Vessels: normal peripheral pulses Extremities: no edema Gastrointestinal (Abdomen): normal bowel sounds, soft, nontender, no hepatosplenomegaly Musculoskeletal: no cyanosis or clubbing, extremities motor strength 5/5 Skin: no rashes, warm and dry Neurologic: PERRL, EOMI, accommodation nl, no face palsy, no dysarthria Psychiatric: A+Ox3, euthymic affect Principal Diagnosis Acute diastolic heart failure exacerbation Acute respiratory failure-resolved Acute on chronic kidney failure Hypervolemic hyponatremia Discharge Exam CONSTITUTIONAL: WNWD, vitals as above, generally well-appearing EYES: pupils are equal and round bilaterally, normal conjunctivae, no scleral icterus ENT: external ear and nose normal, MMM NECK: trachea midline, no lymphadenopathy, normal thyroid RESPIRATORY: clear to auscultation bilaterally, no crackles, rales or wheezes, normal respiratory effort on room air. CARDIOVASCULAR: regular rate and rhythm, S1 and 2 heard without murmurs, gallops or rubs, no JVD, no peripheral edema GASTROINTESTINAL: soft, nontender, nondistended MUSCULOSKELETAL: strength 5/5 throughout, head is normocephalic and atraumatic SKIN: warm and dry NEUROLOGIC: No facial palsy, no dysarthria. CN 2-12 grossly intact, normal cognition and speech. No gross focal deficits. PSYCHIATRIC: alert cooperative and oriented to person, place and time. Discharge Data Allergies Allergy/AdvReac Type Severity Reaction Status Date / Time hydrochlorothiazide AdvReac Intermediate recurring Verified 12/18/19 03:15 hyponatremia oxycodone [From Percocet] AdvReac Mild Nausea Verified 12/18/19 03:15 Consultations 12/12/19 12:22 ED Decision to Admit Stat 12/12/19 14:23 Consult Health Information Management Stat 12/12/19 14:33 Consult Cardiology Routine Consult Nephrology Routine Ordered Studies 12/12/19 14:33 CT chest wo con Urgent Hospital Course (1) Acute respiratory failure with hypoxia: Initially thought secondary to heart failure with patchy infiltrates on CT reflective of pulmonary edema. An elevated BNP of 12K was in support of this, and he has been responding well to diuretic therapy with Lasix. Known CKD with proteinuria, however, this was not thought to be contributing to his volume overload. CXR today is improved from two days ago. He was weaned from oxygen supplementation easily with diuresis. Notably, Covid test was negative. Compliance with Eliquis so PE thought unlikely. Overall, suspected to have had hypervokemic hyponatremia initially, instead of dehydration, so when he was "given fluid resuscitation" he became notably hypoxic even requiring hi flow oxygen at one point in the hospital course. He was notably improved with diuresis and a diastolic CHF exacerbation was the likely etiology. (2) Hyponatremia: resolved with diuresis. Nephrology Gefrancoiser was consulted. (3) Acute kidney injury superimposed on CKD: Valsartan held with worsened creatinine. Cont current therapy. (4) Hypertension: Cont amlodipine, atenolol and Lasix. HCTZ stopped and Valsartan held in setting of SONIA. Cont low salt diet. Around goal but will need close followup as outpatient. PCP appointment set up prior to discharge. (5) Atrial fibrillation: Rate controlled on dig and atenolol and anticoagulated on Eliquis Total Time Total Time Spent Total Time Spent (In Minutes): 60 Total Time Includes: Examination of the Patient, Discharge Planning, Medication Reconciliation and Communication With Other Providers Discharge Plan Discharge Items Patient Disposition: Home - Self-Care Reason For Visit: HYPOXIA Discharge Diagnosis: Acute diastolic heart failure exacerbation Acute respiratory failure-resolved Acute on chronic kidney failure Hypervolemic hyponatremia Condition on Discharge: Good Activity: Resume your previous activity Non-emergency contact: Primary Care Provider Call non-emergency contact if: you have any medication questions, your symptoms worsen and you have a fever Follow-up/Referrals: Brannon Ellison MD [Primary Care Provider] - 12/20/19 2:40 am (Telemedicine appointment) Diet: Carb Consistent or DM2 and Low Sodium (2gm) Fluids: 1200ml (5 cups) Addtl Attending Provider Instructions: Please take all medications as instructed below. Please note several changes in medications and review this list with your primary care physician (PCP) in followup appointment above. Please continue to avoid taking VALSARTAN for blood pressure until your bloodwork is checked and your creatinine (marker of kidney function) has improved. It is recommended that you have nonfasting bloodwork (BASIC METABOLIC PANEL) weekly for the next 4 weeks to monitor drug changes. It is recommended that you continue sticking to a low sodium diet (2 grams daily) and a 1200mL (5 cups) fluid restriction until otherwise removed by your PCP or Content Developer in follow-up. Please follow-up with your Content Developer in 2-4 weeks. Please continue measuring standing weights at home and keep a log to monitor changes. It is recommended that you undergo a repeat chest xray within 6-8 weeks to ensure complete resolution of abnormal findings and edema. It was a pleasure taking care of you! Please call if you have any questions or problems. You can reach a [facility] hospitalist on duty at [facility] 24 hours a day by calling [phone]. Take care of yourself. Destinee Lovett DO [facility] Hospitalist Pending Studies at Discharge: No Stand-Alone Forms: [facility], Smoking Cessation Medications and DC Order Prescriptions: New isosorbide mononitrate 60 mg Tablet Extended Release 24 Hr 60 mg PO QAM Qty: 30 RF: 2 torsemide 10 mg tablet 10 mg PO DAILY Qty: 30 RF: 1 potassium chloride 10 mEq capsule, extended release 10 meq PO DAILY Qty: 30 RF: 1 metoprolol succinate [Toprol XL] 25 mg tablet extended release 24 hr 12.5 mg PO BID Qty: 60 RF: 1 Continued atorvastatin 40 mg Tablet 40 mg PO HS RF: 0 amlodipine 5 mg Tablet 5 mg PO HS RF: 0 allopurinol 300 mg Tablet 300 mg PO QAM RF: 0 digoxin 125 mcg Tablet 0.125 mg PO SUMOWEFR RF: 0 ergocalciferol (vitamin D2) [Vitamin D2] 50,000 unit Capsule 50,000 unit PO UD RF: 0 Januvia 50 mg Tablet 50 mg PO QAM RF: 0 Basaglar KwikPen U-100 Insulin 100 unit/mL (3 mL) Insulin Pen 30 unit SUBCUT HS RF: 0 omega 9-yug-olt-fish oil [Fish Oil] 60-90-500 mg Capsule 2 cap PO BID RF: 0 Eliquis 5 mg Tablet 5 mg PO BID RF: 0 fenofibric acid (choline) 135 mg Capsule,Delayed Release(Dr/Ec) 135 mg PO QAM RF: 0 aspirin [Aspir-81] 81 mg Tablet,Delayed Release (Dr/Ec) 81 mg PO QAM RF: 0 Discontinued atenolol 25 mg Tablet 25 mg PO HS RF: 0 atenolol 50 mg Tablet 50 mg PO QAM RF: 0 valsartan 160 mg Tablet 160 mg PO QAM RF: 0 hydrochlorothiazide 25 mg tablet 25 mg PO QAM RF: 0 doxycycline hyclate 100 mg tablet 100 mg PO BID 10 Days Qty: 20 RF: 0 Discharge Orders: Discharge Order (Routine); Ordered 12/15/19 Ordered By: Destinee Yeh/Other Patient Handouts: Heart Failure Meds, What Is Heart Failure, Heart Failure Signs of Flare-Up, Heart Failure: Tracking Your Weight, What Is Pneumonia?, Taking Potassium, Shortness of Breath Coping, Heart Failure Making Changes to Your Diet, Metoprolol tablets, Isosorbide Mononitrate tablets, Torsemide tablets Admission Data Admit Date/Time: 12/12/19 13:25 Attending Provider: Destinee Lovett Admit Provider: Mal Felix Primary Care Provider: Brannon Ellison Other Providers: Rebecca Vela I. ; Emerson Everett ; Roxana Garcia Other Interventions: Discharge Summary Assessment (RN) Last Done: 12/15/19 15:39 DC Date/Time DO NOT enter until pt leaves facility: 12/15/19 17:08
== END 2019-12-15 17:08 | disposition home or self-care (01) | DRG 291 ==
LOC: ED 09:56 → 2S 13:25 → SUATTDRO 13:25 → 2S 13:55

== ENCOUNTER 2023-11-06 19:18 | Inpatient (IN) ==
--- NOTE | 2023-11-06 19:58 | Emergency Department Note ---
Impression & Plan Pulmonary edema, Hypoxia, Elevated troponin I level, Hyponatremia ED Provider Note NAME: AZALEA MILLER AGE: 78 SEX: M : 1945 ARRIVES VIA: Walk-In INFORMANT: Patient, ED PROVIDER(S): Edy Woods DO CHIEF COMPLAINT: Shortness of breath HPI: The patient is a 78-year-old male who presented to the emergency department for an evaluation of shortness of breath. The patient initially presented to [facility] but was sent to the emergency department because of abnormal oxygen level. The patient has a history of atrial fibrillation as well as low ejection fraction. He states he has no history of congestive heart failure. The patient has been compliant with his outpatient medications. He denies having any chest pain. He denies having any abdominal pain. He denies having any recent viral illnesses. The patient states he has trouble laying flat. ROS: See above HPI for pertinent positives & negatives. A total of 10 systems reviewed and were otherwise negative. PAST MEDICAL HISTORY: See Below PAST SURGICAL HISTORY: See Below FAMILY HISTORY: See Below SOCIAL HISTORY: See Below HOME MEDICATIONS: See Below ALLERGIES: See Below VITALS: See Below PHYSICAL EXAMINATION: GENERAL: Patient is awake and alert. The patient is somewhat anxious appearing. EYES: The conjunctivae are clear. The pupils are round and reactive. EARS, NOSE, MOUTH AND THROAT: The nose is without any evidence of any deformity. NECK: The neck is nontender and supple. RESPIRATORY: Diminished breath sounds are noted throughout. There were rales at both bases left greater than right. CARDIOVASCULAR: Regular rate and rhythm noted there no murmurs rubs or gallops normal S1 normal S2. GASTROINTESTINAL: The abdomen is soft. Abdomen is nontender. MUSCULOSKELETAL/EXTREMITIES: There is no evidence of gross deformity full range of motion is noted in the hips and shoulders. SKIN: Trace pedal edema was noted bilaterally. NEUROLOGIC: Patient is awake alert and oriented x3 MEDICAL DECISION MAKING: The patient is a 78-year-old male who presented to the emergency department for an evaluation of difficulty breathing. The patient has been having orthopnea over the last few days. He does have a history of low ejection fraction. The patient had a history and physical exam that appear to be consistent with CHF. He was treated with Lasix in the emergency department. He was reevaluated multiple times. He was found have hyponatremia which I feel is likely related to his volume overload. I discussed the patient's laboratory and radiographic studies with him. [facility] have agreed to evaluate the patient in the emergency department for further management and disposition. Triage Nursing notes reviewed. Prior medical records reviewed Vital Signs: reviewed and remarkable for hypoxia and hypertension. Differential diagnosis: Reactive airway disease, pneumonia, pneumothorax, COPD, CHF, infections, cardiac ischemia, pulmonary embolism, musculoskeletal, gastrointestinal, as well as other pathologies. ER treatment provided: See below Diagnostics interpreted by me: ECG: EKG was obtained in the emergency department. My interpretation is atrial fibrillation at 69 bpm. Poor R wave progression with lateral ST depressions were noted. PVCs were also noted. This was compared to a tracing from May 05, 2021. No changes were noted. EKG from [facility] was obtained. My interpretation is atrial fibrillation at 80 bpm. Poor R wave progression was noted with lateral ST depressions, this compares similar to the EKG obtained in the emergency department. Cardiac Monitoring: An order was placed for continuous cardiac monitoring. The monitor shows a rate of 85 bpm with atrial fibrillation. Laboratory studies: As stated above and show below. Imaging studies: See below. Radiographic imaging was reviewed by myself Consultation(s): I discussed this case with Dr. Machado [facility] COURSE: Procedures: none Critical Care: I have personally spent greater than 45 minutes of critical care time in the direct management of this patient. This includes bedside care, interpretation of diagnostic studies, and testing, discussion with consultants, patient, and family members, and other required patient management activities. This 45 minutes is in excess of all separately billable procedures. Past Med/Surg History Problem List (Updated 11/06/23 @ 20:52 by Edy Woods DO) Elevated troponin I level (Acute) Hypoxia (Acute) Pulmonary edema (Acute) Diabetes mellitus with diabetic nephropathy Vitamin D deficiency Diastolic heart failure Carotid artery disease Coronary artery disease Hyponatremia (Acute) CKD (chronic kidney disease) Hypertension (Acute) Diabetes mellitus, type 2 Atrial fibrillation Medical History Gout Osteoarthritis Kidney function abnormal "REDUCED KIDNEY FUNCTION" Carotid artery stenosis Hyperlipidemia Surgical History History of left cataract extraction 04/2018: Was given 2mg of versed without apparent complications History of colonoscopy History of tooth extraction Hx of LASIK PRK BILAT EYES History of carotid endarterectomy RT/LEFT SIDE WITH STENTS INSERTIONS BILAT. History of heart artery stent 10 YEARS AGO (2 TOTAL STENTS) History of cardiac cath HEART CATH X 2 (10 YEARS AGO) Family History Grandmother (Paternal) Family history of diabetes mellitus Sister Family history of diabetes mellitus Mother Family hx of colon cancer Colorectal cancer Father AAA (abdominal aortic aneurysm) Denies family history of Ovarian cancer Prostate cancer Myocardial infarction Breast cancer Social History Smoking Status: Never smoker Second Hand Exposure: No; Do You Dip or Chew Tobacco: No; Hx Alcohol Use: No Hx Substance Use: No Preferred Language: Occitan Communication Ability: Effective Visual Impairment: No Limitations Hearing Ability: Normal Stone Carver Required: No Beliefs That Will Affect Care: None marital status: Current Living Situation: Spouse current occupational status: retired Feels Safe at Home: Yes Childhood Exposure to Second-Hand Smoke: No Diet: low salt Dental Care, Regularly: Yes Physical Activity Frequency: 1-2 Times per Week Seatbelt Use: always Sunscreen Use: Yes Assistive Devices: Glasses Allergies Allergies Allergy/AdvReac Type Severity Reaction Status Date / Time hydrochlorothiazide AdvReac Intermediate recurring Verified 11/06/23 20:56 hyponatremia oxycodone [From Percocet] AdvReac Mild Nausea Verified 11/06/23 20:56 Home Meds Home Medications Medication Instructions Recorded Confirmed omega 0-rgs-[id number]-fish oil 60 mg-90 2 cap PO BID 05/10/18 11/06/23 mg-500 mg capsule (Fish Oil) econazole 1 % topical cream 1 applic topical QID 12/29/19 11/06/23 aspirin 81 mg tablet,delayed 81 mg PO DAILY 12/03/21 11/06/23 release (Adult Aspirin Regimen) magnesium 200 mg tablet 200 mg PO DAILY 01/21/22 11/06/23 amlodipine 2.5 mg tablet 2.5 mg PO DAILY 06/10/23 11/06/23 diclofenac sodium 1 % topical gel 2 g topical QID PRN JOINT PAIN 11/06/23 11/06/23 (Voltaren Arthritis Pain) trazodone 50 mg tablet 50 mg PO HS 11/06/23 11/06/23 valsartan 320 mg tablet 320 mg PO DAILY 11/06/23 11/06/23 Previous Rx's Medication Instructions Recorded torsemide 10 mg tablet 10 mg PO DAILY #30 tabs 12/15/19 allopurinol 300 mg tablet 300 mg PO QAM #90 tabs 12/02/22 fluticasone propionate 50 2 spray intranasal DAILY #48 grams 12/02/22 mcg/actuation nasal spray,suspension metoprolol succinate 25 mg 25 mg PO BID #180 tabs 03/02/23 tablet,extended release 24 hr (Toprol XL) sitagliptin phosphate 50 mg tablet 50 mg PO QAM #90 tabs 03/29/23 (Januvia) blood sugar diagnostic (Accu-Chek #100 ea 04/14/23 [place] Plus test strips) atorvastatin 40 mg tablet 40 mg PO HS #90 tabs 06/03/23 insulin glargine 100 unit/mL (3 30 unit (0.3 mL) subcut QPM #27 mL 06/09/23 mL) subcutaneous pen (Lantus Solostar U-100 Insulin) pen needle, diabetic 32 gauge x #100 ea 06/09/23" (BD Ultra-Fine Leanne Pen Needle) rivaroxaban 20 mg tablet (Xarelto) 20 mg PO QPM #90 tabs 06/30/23 amlodipine 5 mg tablet 5 mg PO HS #90 tabs 09/10/23 empagliflozin 10 mg tablet 10 mg PO DAILY #30 tabs 09/16/23 (Jardiance) Results & Data (ED) Vital Signs Vital Signs - 24 hr 11/06/23 19:24 11/06/23 19:36 11/06/23 19:52 Temperature 36.9 C Temperature Source Temporal Artery Scan Pulse Rate 78 57 L Pulse Rate [Apical] Pulse Rhythm Regular Pulse Strength Normal Respiratory Rate 20 Respiratory Effort / Characteristics Non-Labored Spontaneous Respiratory Depth Normal Blood Pressure 147/74 H Blood Pressure [Left Arm] Blood Pressure Mean 98 Blood Pressure Mean [Left Arm] Blood Pressure Position Sitting Pulse Oximetry 86 L 95 Oxygen Delivery Method Room Air Oxymask Oxygen Flow Rate 9 Sepsis Recent Fever Within 48 Hours No Sepsis New/Unexplained Change in Mental Status N/A Sepsis Action Taken by Nursing No Action Required 11/06/23 19:53 11/06/23 20:09 11/06/23 20:45 Temperature Temperature Source Pulse Rate Pulse Rate [Apical] 75 96 H 73 Pulse Rhythm Pulse Strength Respiratory Rate 31 H 16 25 H Respiratory Effort / Characteristics Respiratory Depth Blood Pressure Blood Pressure [Left Arm] 178/97 H 155/112 H 176/94 H Blood Pressure Mean Blood Pressure Mean [Left Arm] 124 126 121 Blood Pressure Position Pulse Oximetry 94 90 Oxygen Delivery Method Oxymask Oxymask Oxymask Oxygen Flow Rate 9 9 9 Sepsis Recent Fever Within 48 Hours Sepsis New/Unexplained Change in Mental Status Sepsis Action Taken by Custodial Medications Current Medication List: was personally reviewed by me Laboratory Data Attestation: I reviewed the patient's lab results. 11/06/23 19:50 11/06/23 19:50 Lab Results 11/06/23 11/06/23 Range/Units 19:50 20:19 WBC 8.91 (4.8-10.8) K/ul RBC 3.77 L (4.70-6.10) M/uL Hgb 12.0 L (14.0-18.0) g/dl Hct 34.7 L (42.0-52.0) % MCV 92.0 (80.0-100.0) fL MCH 31.8 (25.0-34.0) pg MCHC 34.6 (32.0-36.0) g/dL RDW Std Deviation 51.1 H (36.4-46.3) fL RDW Coeff of Aleksandra 15.1 H (11.5-14.5) % Plt Count 150 (130-400) K/uL MPV 10.2 (9.4-12.4) fL Immature Gran % (Auto) 0.6 % Neut % (Auto) 85.6 % Lymph % (Auto) 8.2 % [place] % (Auto) 5.5 % Eos % (Auto) 0.0 % Baso % (Auto) 0.1 % Neut # (Auto) 7.63 H (1.40-6.50) K/uL Lymph # (Auto) 0.73 L (1.20-3.40) K/uL [place] # (Auto) 0.49 (0.11-0.59) K/uL Eos # (Auto) 0.00 (0.00-0.50) K/uL Baso # (Auto) 0.01 (0.00-0.20) K/uL Immature Gran # (Auto) 0.05 (0.01-0.20) K/uL PT 14.3 H (9.0-12.0) Seconds INR 1.4 H (0.9-1.1) APTT 45 H (21-31) Seconds PTT Ratio 1.7 VBG pH 7.40 (7.36-7.41) VBG pCO2 34 L (38-50) mmHg VBG pO2 30 mmHg VBG HCO3 21 mmol/L VBG O2 Saturation < 60.0 % VBG Base Excess -3.0 mEq/L Sodium 128 L (136-145) mmol/L Potassium 4.5 (3.5-5.1) mmol/L Chloride 97 L (98-107) mmol/L Carbon Dioxide 20 L (21-32) mmol/L Anion Gap 11 (3-11) BUN 37 H (6-23) mg/dl Creatinine 1.67 H (0.6-1.4) mg/dl Est Cr Clr Drug Dosing 38.8 ml/min Est GFR ( Amer) 44.4 ml/min Est GFR (Non-Af Amer) 38.3 ml/min BUN/Creatinine Ratio 22.2 H (10-20) Glucose 161 H (70-99(Fasting)) mg/dl Osmolality 285 (280-300) mOsm/kg Lactate 1.2 (0.4-2.0) mmol/L Calcium 9.4 (8.6-10.3) mg/dl Magnesium 1.7 (1.7-2.4) mg/dl Total Bilirubin 1.6 H (0.2-1.0) mg/dl Direct Bilirubin 0.3 H (0-0.2) mg/dl AST 24 (13-39) U/L ALT 20 (7-52) U/L Alkaline Phosphatase 84 (34-104) U/L Troponin I High Sens 34.3 H (0-20) pg/ml B-Natriuretic Peptide 994 H (0-100) pg/ml Total Protein 8.0 (6.0-8.3) gm/dl Albumin 4.5 (3.4-5.0) gm/dl Procalcitonin 0.40 (0-0.5) ng/ml Urine Color Yellow Urine Appearance Clear (Clear) Urine pH 5.0 (4.5-7.5) Ur Specific [place] 1.021 (1.000-1.030) Urine Protein 3+ H (Negative) Urine Glucose (UA) Negative (Negative) Urine Ketones Negative (Negative) Urine Blood 2+ H (Negative) Urine Nitrite Negative (Negative) Urine Bilirubin Negative (Negative) Urine Urobilinogen Negative (Negative) Ur Leukocyte Esterase Negative (Negative) Urine WBC (Auto) 0-5 (0-5) /hpf Urine RBC (Auto) >20 H (0-2) /hpf U Hyaline Cast (Auto) 6-10 H (0-2) /lpf U Epithel Cells (Auto) 0-2 (0-2) /hpf Urine Bacteria (Auto) None Seen (None Seen) Urine Osmolality 430 L (500-800) mOsm/kg Ur Random Sodium 19 mmol/L Adenovirus (PCR) Not Detected (NotDetected) B. pertussis DNA (PCR) Not Detected (NotDetected) B.parapertussis DNA PCR Not Detected (NotDetected) C. pneumoniae DNA (PCR) Not Detected (NotDetected) Coronavirus OC43 (PCR) Not Detected (NotDetected) Coronavirus HKU1 (PCR) Not Detected (NotDetected) Coronavirus 229E (PCR) Not Detected (NotDetected) SARS-CoV-2 (PCR) Not Detected (NotDetected) Coronavirus NL63 (PCR) Not Detected (NotDetected) Human Metapneumovir PCR Not Detected (NotDetected) Influenza Type A (PCR) Not Detected (NotDetected) Influenza Type B (PCR) Not Detected (NotDetected) M. pneumoniae (PCR) Not Detected (NotDetected) Parainfluenza 1 (PCR) Not Detected (NotDetected) Parainfluenza 2 (PCR) Not Detected (NotDetected) Parainfluenza 3 (PCR) Not Detected (NotDetected) Parainfluenza 4 (PCR) Not Detected (NotDetected) RSV (PCR) Not Detected (NotDetected) Entero/Rhino (PCR) Not Detected (NotDetected) Administered Medications Discontinued Medications Amlodipine Besylate (Amlodipine Besylate 5 Mg Tab) 5 mg PO NOW ONE Stop: 11/06/23 21:31 Last Admin: 11/06/23 21:47 Dose: 5 mg Documented By: EMILY Atorvastatin Calcium (Atorvastatin 40 Mg Tab) 40 mg PO NOW STA Stop: 11/06/23 21:31 Last Admin: 11/06/23 21:46 Dose: 40 mg Documented By: EMILY Furosemide (Furosemide 40 Mg/4 Ml Vial) 100 mg IV ONE ONE Stop: 11/06/23 20:51 Last Admin: 11/06/23 20:55 Dose: 100 mg Documented By: EMILY Metoprolol Succinate (Metoprolol Succ 25mg Ext Rel Tab) 25 mg PO NOW STA Stop: 11/06/23 21:31 Last Admin: 11/06/23 21:46 Dose: 25 mg Documented By: EMILY Nitroglycerin (Nitroglycerin 2% Ointment 30gm Tube) 0.5 inch EXT NOW ONE Stop: 11/06/23 22:08 Last Admin: 11/06/23 22:12 Dose: 0.5 inch Documented By: EMILY Rivaroxaban (Rivaroxaban 15 Mg Tab) 15 mg PO NOW STA Stop: 11/06/23 21:31 Last Admin: 11/06/23 21:46 Dose: 15 mg Documented By: EMILY Trazodone HCl (Trazodone Hcl 50 Mg Tab) 50 mg PO NOW ONE Stop: 11/06/23 21:31 Last Admin: 11/06/23 21:46 Dose: 50 mg Documented By: EMILY Imaging Data Attestation: I personally reviewed and interpreted this imaging study as follows: My Impression: 1 view chest x-ray was obtained in the emergency department. My interpretation was cardiomegaly with pulmonary edema, final report below. Radiologist's Impression: Chest X-Ray 11/06/23 19:39 SINGLE VIEW CHEST CLINICAL HISTORY: Sepsis FINDINGS: An AP, portable, upright chest radiograph is compared to study dated 05/05/2021. The heart is enlarged noting atherosclerotic calcification of the thoracic aorta. There is pulmonary vascular congestion and interstitial edema. There are layering pleural effusions with dependent consolidation. No pneumothorax is seen. The skeletal structures are osteopenic. The bony thorax is grossly intact. IMPRESSION: 1. Cardiomegaly with evidence of congestive failure and pulmonary edema. 2. Layering pleural effusions with dependent consolidation. ACT 112: Negative or not required by law. Electronically signed by: Alexandru Centeno M.D. 11/06/2023 8:09 PM Discharge Plan Visit Data Chief Complaint: Referred by Doctor Stated Complaint: CONGESTION, HISTORY OF HEART DISEASE ED Provider: Edy Woods Discharge Problem: Pulmonary edema, Hypoxia, Elevated troponin I level, Hyponatremia Patient Disposition: Being Evaluated by Hospitalist Discharge Instructions Interventions: ED Discharge Assessment Last Done: 11/06/23 22:33 Discharge Problem: Pulmonary edema Qualifiers: Chronicity: acute Qualified Code(s): J81.0 - Acute pulmonary edema
[2023-11-06 20:04] LABS: HCO3 VBG 21 mmol/L; Oxygen Saturation VBG < 60.0 %; PCO2 VBG 34 mmHg (38-50); PO2 VBG 30 mmHg
--- NOTE | 2023-11-06 20:10 | XRay Report ---
SINGLE VIEW CHEST CLINICAL HISTORY: Sepsis FINDINGS: An AP, portable, upright chest radiograph is compared to study dated 05/05/2021. The heart i s enlarged noting atherosclerotic calcification of the thoracic aorta. There is pulmonary vascular co ngestion and interstitial edema. There are layering pleural effusions with dependent consolidation. N o pneumothorax is seen. The skeletal structures are osteopenic. The bony thorax is grossly intact. IMPRESSION: 1. Cardiomegaly with evidence of congestive failure and pulmonary edema. 2. Layering pleural effusions with dependent consolidation. ACT 112: Negative or not required by law. Electronically signed by: Alexandru Centeno M.D. 11/06/2023 8:09 PM
[2023-11-06 20:15] LABS: Basophils # (auto) 0.01 K/uL (0.00-0.20); Basophils % (auto) 0.1 %; Hematocrit (blood only) 34.7 % (42.0-52.0); Immature Granulocytes # (auto) 0.05 K/uL (0.01-0.20); Immature Granulocytes % (auto) 0.6 %; Lymphocytes # (auto) 0.73 K/uL (1.20-3.40); Lymphocytes % (auto) 8.2 %; Mean Corpuscular Hemoglobin 31.8 pg (25.0-34.0); Mean Corpuscular Hgb Conc 34.6 g/dL (32.0-36.0); Mean Platelet Volume 10.2 fL (9.4-12.4); Monocytes # (auto) 0.49 K/uL (0.11-0.59); Monocytes % (auto) 5.5 %; Neutrophils # (auto) 7.63 K/uL (1.40-6.50); Neutrophils % (auto) 85.6 %; Platelet Count 150 K/uL (130-400); RDW Coefficient of Variation 15.1 % (11.5-14.5); RDW Standard Deviation 51.1 fL (36.4-46.3); Red Blood Count 3.77 M/uL (4.70-6.10); White Blood Count 8.91 K/ul (4.8-10.8)
[2023-11-06 20:26] LABS: Albumin Level 4.5 gm/dl (3.4-5.0); BUN Creatinine Ratio 22.2 (10-20); Bilirubin Direct 0.3 mg/dl (0-0.2); Bilirubin,Total 1.6 mg/dl (0.2-1.0); Calcium 9.4 mg/dl (8.6-10.3); Creatinine Clr Calc Pharmacy 38.8 ml/min; Est GFR (African American) 44.4 ml/min; Est GFR (Non-African American) 38.3 ml/min; Magnesium 1.7 mg/dl (1.7-2.4); Potassium 4.5 mmol/L (3.5-5.1)
[2023-11-06 20:32] LABS: Troponin I High Sensitivity 34.3 pg/ml (0-20)
[2023-11-06 20:44] LABS: INR 1.4 (0.9-1.1); Partial Thromboplastin Ratio 1.7; Partial Thromboplastin Time 45 Seconds (21-31); Prothrombin Time 14.3 Seconds (9.0-12.0)
[2023-11-06 20:50] LABS: Appearance Urine Clear (Clear); Bacteria Urine Automated None Seen (None Seen); Bilirubin Urine Negative (Negative); Blood Urine 2+ (Negative); Color Urine Yellow; Epithelial Cell Urine Auto 0-2 /hpf (0-2); Glucose Urine UA Negative (Negative); Ketones Urine Negative (Negative); Leukocyte Esterase Urine Negative (Negative); Nitrite Urine Negative (Negative); Protein Urine 3+ (Negative); RBC Urine Automated >20 /hpf (0-2); Specific Gravity Urine 1.021 (1.000-1.030); Urobilinogen Urine Negative (Negative); WBC Urine Automated 0-5 /hpf (0-5)
[2023-11-06] MEDS: FUROSEMIDE 40 MG/4 ML VIAL IV ONE (20:55)
[2023-11-06 21:14] LABS: Adenovirus PCR Not Detected (NotDetected); Bordetella parapertussis PCR Not Detected (NotDetected); Bordetella pertussis PCR Not Detected (NotDetected); Chlamydia pneumoniae PCR Not Detected (NotDetected); Coronavirus 229E PCR Not Detected (NotDetected); Coronavirus CoV-2 (COVID19)PCR Not Detected (NotDetected); Coronavirus HKU1 PCR Not Detected (NotDetected); Coronavirus NL63 PCR Not Detected (NotDetected); Coronavirus OC43PCR Not Detected (NotDetected); Human Metapneumovirus PCR Not Detected (NotDetected); Influenza A PCR Not Detected (NotDetected); Influenza B PCR Not Detected (NotDetected); Mycoplasma pneumoniae PCR Not Detected (NotDetected); Parainfluenza Virus 1 PCR Not Detected (NotDetected); Parainfluenza Virus 2 PCR Not Detected (NotDetected); Parainfluenza Virus 3 PCR Not Detected (NotDetected); Parainfluenza Virus 4 PCR Not Detected (NotDetected); Respiratory Syncytial VirusPCR Not Detected (NotDetected); Rhinovirus/Enterovirus PCR Not Detected (NotDetected)
--- NOTE | 2023-11-06 21:24 | History & Physical Report ---
Date of Service November 06, 2023 Assessment & Plan (1) Hypoxia: Plan: 78yo male presenting with acute hypoxic respiratory failure likely secondary to exacerbation of CHF with volume overload. Patient i requiring supplemental O2 by Oxymask --> CPAP. Currently saturating well. Workup as above with evidence for acute exacerbation of CHF - elevated troponin, BNP and CXR with cardiomegaly and pulmonary edema. Patient with history of CAD with prior stenting. His last echocardiogram from 2019 with preserved EF and some WMA. Patient has been given Lasix 100mg IV and placed on CPAP. He is breathing more comfortably. -Admit to PCU -Continue CPAP support, O2 as needed -Continue to diurese - Lasix 40mg IV BID -Daily weights and strict I/O monitoring -Check 2D echo -Trend troponin (2) Pulmonary edema: Plan: Patient with pulmonary edema. -Check TSH -3+ Protein on UA - check urine Protein and Cr -Check 2D echo (3) Hypertension: Plan: Elevated blood pressure -Continue Amlodipine -Continue metoprolol -Hold Valsartan for now (4) Diabetes mellitus, type 2: Plan: Chronic -Continue Sitagliptin -Lantus 15u BID -ISS -Goal blood sugar 110 - 140 (5) Atrial fibrillation: Plan: Rate controlled -Continue Metoprolol -Continue Rivaroxaban - adjusted for renal clearance (6) Coronary artery disease: Plan: Patient denies chest pain -Continue ASA, Atorvastatin Plan F/E/N -diuresis, monitor electrolytes and replete as needed, CC diet as tolerated Ppx - continue Rivaroxaban Code - Full per discussion with patient Dispo - Admit to PCU History of Present Illness Chief Complaint: shortness of breath Primary Care Provider: Laurie Inman MD Jae Garcia is a 78yo male with history of HTN, DM, permanent AF, Carotid a rtery stenosis, CAD and HFpEF (Echo 12/14/19 with EF of 60-65%, mild hypokinesis of the inferior posterior wall) presenting with complaint of shortness of breath. Patient complains that he has been unable to sleep for the last several nights - waking from sleep, possibly short of breath upon waking but patient is not sure. He has had progressive weakness and fatigue as well, decreased oral intake. Ongoing chest congestion, orthopnea and dry cough. Patient endorses a 4# weight gain over the last several days. Also with mild abdominal tenderness. Patient denies fever, chills, nausea, vomiting, diarrhea. No urinary complaints. No additional complaints at this time. In the ER patient afebrile, hypertensive, initially saturating 86% on room air. He was placed on 9L Oxymask with improvement in saturations. He has been given Lasix 100mg IV with minimal UOP thus far Had some coughing associated with increased SOB. CPAP placed ER Course: Lasix 100mg IV Atorvastatin 40mg PO Metoprolol 25mg PO Rivaroxaban 15mg PO Trazodone 50mg PO Amlodipine 5mg PO Nitropaste 0.5 inches Allergies Allergy/AdvReac Type Severity Reaction Status Date / Time hydrochlorothiazide AdvReac Intermediate recurring Verified 11/06/23 20:56 hyponatremia oxycodone [From Percocet] AdvReac Mild Nausea Verified 11/06/23 20:56 Home Medications Medication Instructions Recorded Confirmed Type omega 9-tix-qti-fish oil 60 mg-90 2 cap PO BID 05/10/18 11/06/23 History mg-500 mg capsule (Fish Oil) torsemide 10 mg tablet 10 mg PO DAILY #30 tabs 12/15/19 11/06/23 Rx econazole 1 % topical cream 1 applic topical QID 12/29/19 11/06/23 History aspirin 81 mg tablet,delayed 81 mg PO DAILY 12/03/21 11/06/23 History release (Adult Aspirin Regimen) magnesium 200 mg tablet 200 mg PO DAILY 01/21/22 11/06/23 History allopurinol 300 mg tablet 300 mg PO QAM #90 tabs 12/02/22 11/06/23 Rx fluticasone propionate 50 2 spray intranasal DAILY #48 grams 12/02/22 11/06/23 Rx mcg/actuation nasal spray,suspension metoprolol succinate 25 mg 25 mg PO BID #180 tabs 03/02/23 11/06/23 Rx tablet,extended release 24 hr (Toprol XL) sitagliptin phosphate 50 mg tablet 50 mg PO QAM #90 tabs 03/29/23 11/06/23 Rx (Januvia) blood sugar diagnostic (Accu-Chek #100 ea 04/14/23 09/16/23 Rx [place] Plus test strips) atorvastatin 40 mg tablet 40 mg PO HS #90 tabs 06/03/23 11/06/23 Rx insulin glargine 100 unit/mL (3 30 unit (0.3 mL) subcut QPM #27 mL 06/09/23 11/06/23 Rx mL) subcutaneous pen (Lantus Solostar U-100 Insulin) pen needle, diabetic 32 gauge x #100 ea 06/09/23 09/16/23 Rx 5/32" (BD Ultra-Fine Leanne Pen Needle) amlodipine 2.5 mg tablet 2.5 mg PO DAILY 06/10/23 11/06/23 History rivaroxaban 20 mg tablet (Xarelto) 20 mg PO QPM #90 tabs 06/30/23 11/06/23 Rx amlodipine 5 mg tablet 5 mg PO HS #90 tabs 09/10/23 11/06/23 Rx empagliflozin 10 mg tablet 10 mg PO DAILY #30 tabs 09/16/23 11/06/23 Rx (Jardiance) diclofenac sodium 1 % topical gel 2 g topical QID PRN JOINT PAIN 11/06/23 11/06/23 History (Voltaren Arthritis Pain) trazodone 50 mg tablet 50 mg PO HS 11/06/23 11/06/23 History valsartan 320 mg tablet 320 mg PO DAILY 11/06/23 11/06/23 History Past Med/Surg History Problem List Elevated troponin I level (Acute) Hypoxia (Acute) Pulmonary edema (Acute) Diabetes mellitus with diabetic nephropathy Vitamin D deficiency Diastolic heart failure Carotid artery disease Coronary artery disease Hyponatremia (Acute) CKD (chronic kidney disease) Hypertension (Acute) Diabetes mellitus, type 2 Atrial fibrillation Medical History Gout Osteoarthritis Kidney function abnormal "REDUCED KIDNEY FUNCTION" Carotid artery stenosis Hyperlipidemia Surgical History History of left cataract extraction 04/2018: Was given 2mg of versed without apparent complications History of colonoscopy History of tooth extraction Hx of LASIK PRK BILAT EYES History of carotid endarterectomy RT/LEFT SIDE WITH STENTS INSERTIONS BILAT. History of heart artery stent 10 YEARS AGO (2 TOTAL STENTS) History of cardiac cath HEART CATH X 2 (10 YEARS AGO) Family History Grandmother (Paternal) Family history of diabetes mellitus Sister Family history of diabetes mellitus Mother Family hx of colon cancer Colorectal cancer Father AAA (abdominal aortic aneurysm) Denies family history of Ovarian cancer Prostate cancer Myocardial infarction Breast cancer Social History Smoking Status: Never smoker Second Hand Exposure: No; Do You Dip or Chew Tobacco: No; Hx Alcohol Use: No Hx Substance Use: No Preferred Language: Slovak Communication Ability: Effective Visual Impairment: No Limitations Hearing Ability: Normal Office Administrative Assistant Required: No Beliefs That Will Affect Care: None marital status: Current Living Situation: Spouse current occupational status: retired Feels Safe at Home: Yes Childhood Exposure to Second-Hand Smoke: No Diet: low salt Dental Care, Regularly: Yes Physical Activity Frequency: 1-2 Times per Week Seatbelt Use: always Sunscreen Use: Yes Assistive Devices: Glasses Review of Systems Review of Systems: All systems reviewed & are unremarkable except as noted in HPI & below Physical Exam Physical Exam: General: patient with Oxymask in place, visibly tachypneic but able to speak in full sentences, oriented x 4 Skin: warm, dry, intact, no rashes or lesions HEENT: NC/AT, PERRL, EOMI, anicteric sclera, conjunctiva without injection, external ear normal to inspection and nontender, nares patent, moist mucus membranes, dentition intact, no oropharyngeal lesions, neck supple, trachea midline, no LAD, no thyromegaly, +JVD noted on the left to earlobe Heart: +S1/S2, irregularly irregular, no m/r/g Lungs: coarse breath sounds anteriorly with crackles in bilateral lungs to mid- lung ricketts posteriorly Abd: +BS, soft, NT/ND, no masses/organomegaly/ascites Ext: warm, 2+ pulses in UE/LE bilaterally, no clubbing/cyanosis or edema Neuro: nonfocal, patient AA&O x 4, speech intact, no facial droop, moving all extremities on command with equal strength 5/5 Results & Data Results & Data Vital Signs (Past 12 Hours) Vital Signs Temp Pulse Pulse Resp BP BP Pulse Ox 11/06/23 20:45 73 25 H 176/94 H 90 11/06/23 20:09 96 H 16 155/112 H 11/06/23 19:53 75 31 H 178/97 H 94 11/06/23 19:52 95 11/06/23 19:36 57 L 11/06/23 19:24 36.9 C 78 20 147/74 H 86 L O2 Del Method O2 Flow Rate 11/06/23 20:45 Oxymask 9 11/06/23 20:09 Oxymask 9 11/06/23 19:53 Oxymask 9 11/06/23 19:52 Oxymask 9 11/06/23 19:36 11/06/23 19:24 Room Air Laboratory Results Laboratory Results WBC 8.91 K/ul (4.8-10.8) 11/06/23 19:50 RBC 3.77 M/uL (4.70-6.10) L 11/06/23 19:50 Hgb 12.0 g/dl (14.0-18.0) L 11/06/23 19:50 Hct 34.7 % (42.0-52.0) L 11/06/23 19:50 MCV 92.0 fL (80.0-100.0) 11/06/23 19:50 MCH 31.8 pg (25.0-34.0) 11/06/23 19:50 MCHC 34.6 g/dL (32.0-36.0) 11/06/23 19:50 RDW Std Deviation 51.1 fL (36.4-46.3) H 11/06/23 19:50 RDW Coeff of Aleksandra 15.1 % (11.5-14.5) H 11/06/23 19:50 Plt Count 150 K/uL (130-400) 11/06/23 19:50 MPV 10.2 fL (9.4-12.4) 11/06/23 19:50 Immature Gran % (Auto) 0.6 % 11/06/23 19:50 Neut % (Auto) 85.6 % 11/06/23 19:50 Lymph % (Auto) 8.2 % 11/06/23 19:50 [place] % (Auto) 5.5 % 11/06/23 19:50 Eos % (Auto) 0.0 % 11/06/23 19:50 Baso % (Auto) 0.1 % 11/06/23 19:50 Neut # (Auto) 7.63 K/uL (1.40-6.50) H 11/06/23 19:50 Lymph # (Auto) 0.73 K/uL (1.20-3.40) L 11/06/23 19:50 [place] # (Auto) 0.49 K/uL (0.11-0.59) 11/06/23 19:50 Eos # (Auto) 0.00 K/uL (0.00-0.50) 11/06/23 19:50 Baso # (Auto) 0.01 K/uL (0.00-0.20) 11/06/23 19:50 Immature Gran # (Auto) 0.05 K/uL (0.01-0.20) 11/06/23 19:50 PT 14.3 Seconds (9.0-12.0) H 11/06/23 19:50 INR 1.4 (0.9-1.1) H 11/06/23 19:50 APTT 45 Seconds (21-31) H 11/06/23 19:50 PTT Ratio 1.7 11/06/23 19:50 VBG pH 7.40 (7.36-7.41) 11/06/23 19:50 VBG pCO2 34 mmHg (38-50) L 11/06/23 19:50 VBG pO2 30 mmHg 11/06/23 19:50 VBG HCO3 21 mmol/L 11/06/23 19:50 VBG O2 Saturation < 60.0 % 11/06/23 19:50 VBG Base Excess -3.0 mEq/L 11/06/23 19:50 Sodium 128 mmol/L (136-145) L 11/06/23 19:50 Potassium 4.5 mmol/L (3.5-5.1) 11/06/23 19:50 Chloride 97 mmol/L (98-107) L 11/06/23 19:50 Carbon Dioxide 20 mmol/L (21-32) L 11/06/23 19:50 Anion Gap 11 (3-11) 11/06/23 19:50 BUN 37 mg/dl (6-23) H 11/06/23 19:50 Creatinine 1.67 mg/dl (0.6-1.4) H 11/06/23 19:50 Est Cr Clr Drug Dosing 38.8 ml/min 11/06/23 19:50 Est GFR ( Amer) 44.4 ml/min 11/06/23 19:50 Est GFR (Non-Af Amer) 38.3 ml/min 11/06/23 19:50 BUN/Creatinine Ratio 22.2 (10-20) H 11/06/23 19:50 Glucose 161 mg/dl (70-99(Fasting)) H 11/06/23 19:50 Osmolality 285 mOsm/kg (280-300) 11/06/23 19:50 Lactate 1.2 mmol/L (0.4-2.0) 11/06/23 20:19 Calcium 9.4 mg/dl (8.6-10.3) 11/06/23 19:50 Magnesium 1.7 mg/dl (1.7-2.4) 11/06/23 19:50 Total Bilirubin 1.6 mg/dl (0.2-1.0) H 11/06/23 19:50 Direct Bilirubin 0.3 mg/dl (0-0.2) H 11/06/23 19:50 AST 24 U/L (13-39) 11/06/23 19:50 ALT 20 U/L (7-52) 11/06/23 19:50 Alkaline Phosphatase 84 U/L (34-104) 11/06/23 19:50 Troponin I High Sens 43.7 pg/ml (0-20) H 11/06/23 22:37 B-Natriuretic Peptide 994 pg/ml (0-100) H 11/06/23 19:50 Total Protein 8.0 gm/dl (6.0-8.3) 11/06/23 19:50 Albumin 4.5 gm/dl (3.4-5.0) 11/06/23 19:50 Procalcitonin 0.40 ng/ml (0-0.5) 11/06/23 19:50 TSH 0.815 uIu/ml (0.300-4.500) 11/06/23 22:37 Urine Color Yellow 11/06/23 20:19 Urine Appearance Clear (Clear) 11/06/23 20:19 Urine pH 5.0 (4.5-7.5) 11/06/23 20:19 Ur Specific [place] 1.021 (1.000-1.030) 11/06/23 20:19 Urine Protein 3+ (Negative) H 11/06/23 20:19 Urine Glucose (UA) Negative (Negative) 11/06/23 20:19 Urine Ketones Negative (Negative) 11/06/23 20:19 Urine Blood 2+ (Negative) H 11/06/23 20:19 Urine Nitrite Negative (Negative) 11/06/23 20:19 Urine Bilirubin Negative (Negative) 11/06/23 20:19 Urine Urobilinogen Negative (Negative) 11/06/23 20:19 Ur Leukocyte Esterase Negative (Negative) 11/06/23 20:19 Urine WBC (Auto) 0-5 /hpf (0-5) 11/06/23 20:19 Urine RBC (Auto) >20 /hpf (0-2) H 11/06/23 20:19 U Hyaline Cast (Auto) 6-10 /lpf (0-2) H 11/06/23 20:19 U Epithel Cells (Auto) 0-2 /hpf (0-2) 11/06/23 20:19 Urine Bacteria (Auto) None Seen (None Seen) 11/06/23 20:19 Urine Osmolality 430 mOsm/kg (500-800) L 11/06/23 20:19 Ur Random Sodium 19 mmol/L 11/06/23 20:19 Adenovirus (PCR) Not Detected (NotDetected) 11/06/23 19:50 B. pertussis DNA (PCR) Not Detected (NotDetected) 11/06/23 19:50 B.parapertussis DNA PCR Not Detected (NotDetected) 11/06/23 19:50 C. pneumoniae DNA (PCR) Not Detected (NotDetected) 11/06/23 19:50 Coronavirus OC43 (PCR) Not Detected (NotDetected) 11/06/23 19:50 Coronavirus HKU1 (PCR) Not Detected (NotDetected) 11/06/23 19:50 Coronavirus 229E (PCR) Not Detected (NotDetected) 11/06/23 19:50 SARS-CoV-2 (PCR) Not Detected (NotDetected) 11/06/23 19:50 Coronavirus NL63 (PCR) Not Detected (NotDetected) 11/06/23 19:50 Human Metapneumovir PCR Not Detected (NotDetected) 11/06/23 19:50 Influenza Type A (PCR) Not Detected (NotDetected) 11/06/23 19:50 Influenza Type B (PCR) Not Detected (NotDetected) 11/06/23 19:50 M. pneumoniae (PCR) Not Detected (NotDetected) 11/06/23 19:50 Parainfluenza 1 (PCR) Not Detected (NotDetected) 11/06/23 19:50 Parainfluenza 2 (PCR) Not Detected (NotDetected) 11/06/23 19:50 Parainfluenza 3 (PCR) Not Detected (NotDetected) 11/06/23 19:50 Parainfluenza 4 (PCR) Not Detected (NotDetected) 11/06/23 19:50 RSV (PCR) Not Detected (NotDetected) 11/06/23 19:50 Entero/Rhino (PCR) Not Detected (NotDetected) 11/06/23 19:50 Impressions Chest X-Ray 11/06/23 19:39 SINGLE VIEW CHEST CLINICAL HISTORY: Sepsis FINDINGS: An AP, portable, upright chest radiograph is compared to study dated 05/05/2021. The heart is enlarged noting atherosclerotic calcification of the thoracic aorta. There is pulmonary vascular congestion and interstitial edema. There are layering pleural effusions with dependent consolidation. No pneumothorax is seen. The skeletal structures are osteopenic. The bony thorax is grossly intact. IMPRESSION: 1. Cardiomegaly with evidence of congestive failure and pulmonary edema. 2. Layering pleural effusions with dependent consolidation. ACT 112: Negative or not required by law. Electronically signed by: Alexandru Centeno M.D. 11/06/2023 8:09 PM ECG Additional Comments: EKG shows rate controlled AF at 68bpm with abberantly conducted complexes, QRS=92, KNk=538, no acute ischemic changes PG Care Time/CCT Total # of Minutes Spent Total Time Spent with Patient: Total time spent is greater than 50% in coordination of care (as documented) at patient's floor/unit and/or counseling patient: Coding Level of Care Code 58455 INT INP/OBS CARE 3/75MIN Diagnoses Hypoxia R09.02 Pulmonary edema J81.0 Chronicity: acute Hypertension I10 Hypertension type: unspecified Diabetes mellitus, type 2 E11.9 Atrial fibrillation I48.91 Coronary artery disease I25.10 (2) Pulmonary edema Chronicity: acute Qualified Code(s): J81.0 - Acute pulmonary edema (3) Hypertension Hypertension type: unspecified Qualified Code(s): I10 - Essential (primary) hypertension
[2023-11-06] MEDS: METOPROLOL SUCC 25MG EXT REL TAB PO STA (21:46)
[2023-11-06] MEDS: RIVAROXABAN 15 MG TAB PO STA (21:46)
[2023-11-06] MEDS: ATORVASTATIN 40 MG TAB PO STA (21:46)
[2023-11-06] MEDS: traZODone HCL 50 MG TAB PO ONE (21:46)
[2023-11-06] MEDS: amLODIPine BESYLATE 5 MG TAB PO ONE (21:47)
[2023-11-06] MEDS: NITROGLYCERIN 2% OINTMENT 30GM TUBE EXT ONE (22:12)
[2023-11-06] MEDS ORDERED: GLUCAGON FOR INJ 1 MG VIAL SQ PRN (22:32)
[2023-11-06] MEDS ORDERED: ONDANSETRON INJ 2 MG/ML 2 ML VIAL IV PRN (22:32)
[2023-11-06] MEDS ORDERED: DEXTROSE 50% 50 ML SYRINGE IV PRN (22:32)
[2023-11-06] MEDS ORDERED: GLUCOSE 10 TAB/TUBE PO PRN (22:32)
[2023-11-06] MEDS ORDERED: DICLOFENAC SOD 1% GEL 100 GM TUBE EXT PRN (22:32)
[2023-11-06] MEDS ORDERED: CARBOHYDRATES FOR HYPOGLYCEMIA PO PRN (22:32)
[2023-11-06] MEDS ORDERED: GLUCOSE 40% GEL 15 GM TUBE PO PRN (22:32)
[2023-11-06 23:15] LABS: Troponin I High Sensitivity 43.7 pg/ml (0-20)
[2023-11-06 23:24] LABS: Thyroid Stimulating Hormone 0.815 uIu/ml (0.300-4.500)
[2023-11-07 03:23] LABS: Total Protein Urine Random 211.7 mg/dl (0-11.9)
[2023-11-07 04:35] LABS: Hematocrit (blood only) 31.5 % (42.0-52.0); Hemoglobin 10.9 g/dl (14.0-18.0); Mean Corpuscular Hgb Conc 34.6 g/dL (32.0-36.0); Mean Corpuscular Volume 92.4 fL (80.0-100.0); Mean Platelet Volume 10.4 fL (9.4-12.4); Platelet Count 134 K/uL (130-400); RDW Standard Deviation 50.4 fL (36.4-46.3); Red Blood Count 3.41 M/uL (4.70-6.10); White Blood Count 8.65 K/ul (4.8-10.8)
[2023-11-07 04:47] LABS: Bilirubin Direct 0.3 mg/dl (0-0.2); Bilirubin,Total 1.6 mg/dl (0.2-1.0); Est GFR (African American) 43.2 ml/min; Est GFR (Non-African American) 37.3 ml/min; Potassium 4.8 mmol/L (3.5-5.1); Total Protein 7.1 gm/dl (6.0-8.3)
[2023-11-07 04:57] LABS: INR 1.9 (0.9-1.1); Prothrombin Time 19.3 Seconds (9.0-12.0)
[2023-11-07 05:03] LABS: Troponin I High Sensitivity 76.4 pg/ml (0-20)
--- NOTE | 2023-11-07 07:22 | Electrocardiogram Report ---
Test Reason : Blood Pressure : / mmHG Vent. Rate : 069 BPM Atrial Rate : 000 BPM P-R Int : 000 ms QRS Dur : 092 ms QT Int : 416 ms P-R-T Axes : 000 002 096 degrees QTc Int : 445 ms Atrial fibrillation with premature ventricular or aberrantly conducted complexes Lateral infarct (cited on or before 30-AUG-2020) Abnormal ECG When compared with ECG of 05-MAY-2021 02:39, Nonspecific T wave abnormality, improved in Lateral leads Confirmed by Mack Alba ([id number]) on 11/07/2023 7:22:01 AM Referred By: Carol Hernández Confirmed By:Dennys Alba
--- NOTE | 2023-11-07 07:32 | Hospitalist Progress Note ---
Date of Service November 07, 2023 Assessment & Plan (1) Hypoxia: Plan: 78yo male presenting with acute hypoxic respiratory failure likely secondary to exacerbation of HPpEF with volume overload. Patient requiring CPAP and high flow oxygen. Patient has high oxygen req uirements Patient with history of CAD with prior stenting. His last echocardiogram from 2019 with preserved EF and some WMA. 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 Patient has been given Lasix 100mg IV and placed on CPAP. -Continue to diurese - Lasix 40mg IV BID -Echocardiogram performed on 11/06 shows preserved ejection fraction elevated right-sided heart pressures and no significant valvular heart disease -elevated troponin suspect demand ischemia Acute respiratory failure with hypoxia origin is likely heart failure preserved ejection fraction. It be unlikely the patient has a PE given he is on outpatient Xarelto and does have some liver dysfunction with elevated INR on presentation His renal function precludes the ability to do a CT angiogram however if his degree of respiratory stress persist consideration of a noncontrast CT to evaluate lung parenchyma and pulmonary consultation which could be considered (2) Hypertension: Plan: unstable typically on Amlodipine metoprolol these are continued at this time (3) Diabetes mellitus, type 2: Plan: Chronic -Continue Sitagliptin basal bous coverage -Lantus 15u BID -ISS -Goal blood sugar 110 - 140 (4) Atrial fibrillation: Plan: Rate controlled -Continue Metoprolol -Continue Rivaroxaban - adjusted for renal clearance (5) Coronary artery disease: Plan: Patient denies chest pain -Continue ASA, Atorvastatin, metoprolol Plan DVT Ppx - continue Rivaroxaban Code - Full per discussion with patient Admission and Anticipated Discharge Date Admission Date: November 06, 2023 Subjective Patient presents with fairly severe hypoxemia chest x-ray and changes look to be pulmonary edema however his echocardiogram shows preserved ejection fraction with elevated pressures consistent with volume overload but no significant systolic dysfunction. His creatinine makes doing a CT angiogram worrisome and his significant respiratory stress likely makes a VQ scan less reliable, his outpatient use of Xarelto and INR of 1.9 also makes thrombophilia less likely Will continue to attempt diuresis but likely will benefit from pulmonary consultation if he does not improve, certainly if creatinine improves will consider CT angiography Physical Exam Physical Exam: Patient is significantly ill he denies any dietary indiscretion any significant chest pain does have nonproductive cough Cardiac exam is irregular but rate controlled lungs are with coarse breath sounds throughout with rales moderate but not appropriate air movement Abdomen NABS soft nontender Extremities with trace edema bilaterally pretibially Results & Data Results & Data Vital Signs (Past 12 Hours) Vital Signs Temp Pulse Pulse Resp BP Pulse Ox O2 Del Method 11/07/23 04:19 89 L CPAP 11/07/23 04:18 76 11/07/23 03:53 97.9 F 93 H 24 160/82 H 90 Oxymask 11/07/23 03:44 CPAP 11/07/23 02:45 27 H 11/07/23 02:00 77 24 154/92 H 92 CPAP 11/06/23 23:22 85 27 H 96 11/06/23 22:32 11/06/23 22:00 77 26 H 182/104 H 91 Oxymask 11/06/23 21:30 73 19 182/101 H 92 Oxymask 11/06/23 20:45 73 25 H 176/94 H 90 Oxymask 11/06/23 20:09 96 H 16 155/112 H Oxymask 11/06/23 19:53 75 31 H 178/97 H 94 Oxymask 11/06/23 19:52 95 Oxymask 11/06/23 19:36 57 L O2 Del Method O2 Flow Rate FiO2 11/07/23 04:19 60 11/07/23 04:18 11/07/23 03:53 15 11/07/23 03:44 11/07/23 02:45 60 11/07/23 02:00 11/06/23 23:22 60 11/06/23 22:32 CPAP 11/06/23 22:00 13 11/06/23 21:30 9 11/06/23 20:45 9 11/06/23 20:09 9 11/06/23 19:53 9 11/06/23 19:52 9 11/06/23 19:36 Laboratory Results Reviewed CBC reviewed chemistry PG Care Time/CCT Total # of Minutes Spent Total Time Spent with Patient: Total time spent is greater than 50% in coordination of care (as documented) at patient's floor/unit and/or counseling patient: Coding Level of Care Code 38842 SUB INP/OBS CARE 3/50MIN Diagnoses Hypoxia R09.02 Hypertension I10 Hypertension type: unspecified Diabetes mellitus, type 2 E11.9 Atrial fibrillation I48.91 Coronary artery disease I25.10 (2) Hypertension Hypertension type: unspecified Qualified Code(s): I10 - Essential (primary) hypertension
[2023-11-07] MEDS: FLUTICASONE PROPIONATE NA SPR 16 GM BTL SCH (07:51)
[2023-11-07] MEDS: ASPIRIN 81 MG ECTAB PO SCH (08:06)
[2023-11-07] MEDS: METOPROLOL SUCC 25MG EXT REL TAB PO SCH (08:06)
[2023-11-07] MEDS: allopurinoL 300 MG TAB PO SCH (08:07)
[2023-11-07] MEDS: amLODIPine BESYLATE 5 MG TAB PO SCH ×2 (08:08→20:46)
[2023-11-07] MEDS: EMPAGLIFLOZIN 10 MG TAB PO SCH (08:08)
[2023-11-07] MEDS: FUROSEMIDE 40 MG/4 ML VIAL IV SCH (08:10)
[2023-11-07] MEDS: INSULIN ASPART PER UNIT CHARGE SC SCH (08:20)
[2023-11-07] MEDS: LANTUS PER UNIT CHARGE SQ SCH (08:20)
[2023-11-07] MEDS ORDERED: SITagliptin PHOSPHATE 25 MG TAB PO SCH (09:00)
--- NOTE | 2023-11-07 11:29 | XCELERA ---
[id number] \\[email or web address]\[id number]
[2023-11-07] MEDS: ACETAMINOPHEN 325 MG TAB PO PRN (14:36)
[2023-11-07] MEDS: RIVAROXABAN 15 MG TAB PO SCH (16:35)
[2023-11-07] MEDS: ATORVASTATIN 40 MG TAB PO SCH (20:46)
[2023-11-07] MEDS: traZODone HCL 50 MG TAB PO SCH (21:43)
[2023-11-08 08:53] LABS: Hematocrit (blood only) 26.9 % (42.0-52.0); Hemoglobin 9.4 g/dl (14.0-18.0); Mean Corpuscular Hemoglobin 32.3 pg (25.0-34.0); Mean Corpuscular Hgb Conc 34.9 g/dL (32.0-36.0); Mean Corpuscular Volume 92.4 fL (80.0-100.0); Mean Platelet Volume 10.3 fL (9.4-12.4); Platelet Count 130 K/uL (130-400); RDW Standard Deviation 50.8 fL (36.4-46.3); Red Blood Count 2.91 M/uL (4.70-6.10); White Blood Count 6.88 K/ul (4.8-10.8)
[2023-11-08 09:11] LABS: BUN Creatinine Ratio 27.8 (10-20); Calcium 8.7 mg/dl (8.6-10.3); Creatinine Clr Calc Pharmacy 30.9 ml/min; Est GFR (African American) 37.1 ml/min; Potassium 3.7 mmol/L (3.5-5.1)
--- NOTE | 2023-11-08 10:37 | Pulmonary Consultation ---
Date of Consultation November 08, 2023 Assessment & Plan (1) Acute and chronic respiratory failure with hypoxia: (2) Acute on chronic heart failure with preserved ejection fraction (HFpEF): (3) Pleural effusion: Plan Chest x-ray 11/07/2023 personally reviewed: Portable film, bilateral costophrenic and cardiophrenic angles are blunted, increased cardiac silhouette. Increased pulmonary vascular congestion 2D echo 11/07/2023: EF 60-65%, moderate MR, moderate dilation of LA, severe dilation of RA, small pericardial effusion -- Acute hypoxic respiratory failure Likely from HFpEF with bilateral pleural effusion Respiratory bio fire negative for everything on 11/06/2023, procalcitonin 0.4 BNP 994 on presentation, 340 on 11/08/2023 -- Probable MARINA Recommend outpatient polysomnography Plan: In/out: -280, urine output 600, -700 mL since coming to the hospital Recommend strict in and out. Will benefit from BiPAP nightly and as needed shortness of breath Please note the above document was generated using voice recognition software. It may contain grammatical, syntax or spelling errors.Any formal questions or concerns about the content, text or information contained within the body of this dictation should be directly addressed to the provider for clarification. History of Present Illness Attending Physician: Juan Manuel Umana History of Present Illness 78-year-old male admitted to the hospital for shortness of breath Past medical history: HFpEF, hypertension, diabetes, A-fib on Xarelto, coronary artery disease Pulmonary consulted for hypoxia At the time of examination patient was saturating 93% on 11 L nasal cannula, I went down to 9 L. He stated that his breathing has improved compared to when he came to the hospital He did use BiPAP for approximately 4 hours last night, he did not like it because of the pressure. Denied any fever or chills prior to coming to the hospital Occasional cough with clear phlegm No chest pain. No headache, no blurry vision He is compliant with his medications at home. Denies any significant palpitations Social history: Lifetime non-smoker No personal or family history of asthma Allergies Allergy/AdvReac Type Severity Reaction Status Date / Time hydrochlorothiazide AdvReac Intermediate recurring Verified 11/06/23 20:56 hyponatremia oxycodone [From Percocet] AdvReac Mild Nausea Verified 11/06/23 20:56 Home Medications Medication Instructions Recorded Confirmed Type omega 2-iim-kij-fish oil 60 mg-90 2 cap PO BID 05/10/18 11/06/23 History mg-500 mg capsule (Fish Oil) torsemide 10 mg tablet 10 mg PO DAILY #30 tabs 12/15/19 11/06/23 Rx econazole 1 % topical cream 1 applic topical QID 12/29/19 11/06/23 History aspirin 81 mg tablet,delayed 81 mg PO DAILY 12/03/21 11/06/23 History release (Adult Aspirin Regimen) magnesium 200 mg tablet 200 mg PO DAILY 01/21/22 11/06/23 History allopurinol 300 mg tablet 300 mg PO QAM #90 tabs 12/02/22 11/06/23 Rx fluticasone propionate 50 2 spray intranasal DAILY #48 grams 12/02/22 11/06/23 Rx mcg/actuation nasal spray,suspension metoprolol succinate 25 mg 25 mg PO BID #180 tabs 03/02/23 11/06/23 Rx tablet,extended release 24 hr (Toprol XL) sitagliptin phosphate 50 mg tablet 50 mg PO QAM #90 tabs 03/29/23 11/06/23 Rx (Januvia) blood sugar diagnostic (Accu-Chek #100 ea 04/14/23 09/16/23 Rx Asia Plus test strips) atorvastatin 40 mg tablet 40 mg PO HS #90 tabs 06/03/23 11/06/23 Rx insulin glargine 100 unit/mL (3 30 unit (0.3 mL) subcut QPM #27 mL 06/09/23 11/06/23 Rx mL) subcutaneous pen (Lantus Solostar U-100 Insulin) pen needle, diabetic 32 gauge x #100 ea 06/09/23 09/16/23 Rx 5/32" (BD Ultra-Fine Leanne Pen Needle) amlodipine 2.5 mg tablet 2.5 mg PO DAILY 06/10/23 11/06/23 History rivaroxaban 20 mg tablet (Xarelto) 20 mg PO QPM #90 tabs 06/30/23 11/06/23 Rx amlodipine 5 mg tablet 5 mg PO HS #90 tabs 09/10/23 11/06/23 Rx empagliflozin 10 mg tablet 10 mg PO DAILY #30 tabs 09/16/23 11/06/23 Rx (Jardiance) diclofenac sodium 1 % topical gel 2 g topical QID PRN JOINT PAIN 11/06/23 11/06/23 History (Voltaren Arthritis Pain) trazodone 50 mg tablet 50 mg PO HS 11/06/23 11/06/23 History valsartan 320 mg tablet 320 mg PO DAILY 11/06/23 11/06/23 History Patient History Medical History Gout Osteoarthritis Kidney function abnormal "REDUCED KIDNEY FUNCTION" Carotid artery stenosis Hyperlipidemia Surgical History History of left cataract extraction 04/2018: Was given 2mg of versed without apparent complications History of colonoscopy History of tooth extraction Hx of LASIK PRK BILAT EYES History of carotid endarterectomy RT/LEFT SIDE WITH STENTS INSERTIONS BILAT. History of heart artery stent 10 YEARS AGO (2 TOTAL STENTS) History of cardiac cath HEART CATH X 2 (10 YEARS AGO) Family History Grandmother (Paternal) Family history of diabetes mellitus Sister Family history of diabetes mellitus Mother Family hx of colon cancer Colorectal cancer Father AAA (abdominal aortic aneurysm) Denies family history of Ovarian cancer Prostate cancer Myocardial infarction Breast cancer Social History Smoking Status: Never smoker Second Hand Exposure: No; Do You Dip or Chew Tobacco: No; Tobacco Cessation Education Requested by Patient: No Hx Alcohol Use: No Hx Substance Use: No Preferred Language: Peruvian Communication Ability: Effective Visual Impairment: No Limitations Hearing Ability: Normal Parachute Cushion Installer Required: No Beliefs That Will Affect Care: None marital status: Current Living Situation: Spouse Current Living Situation Comment: lives at home with current occupational status: retired Other Information That Helps Us Care for You: No Feels Safe at Home: Yes Safety Concerns: Feels Safe At This Time Childhood Exposure to Second-Hand Smoke: No Diet: low salt Dental Care, Regularly: Yes Physical Activity Frequency: 1-2 Times per Week Seatbelt Use: always Sunscreen Use: Yes Assistive Devices: None Review of Systems 2 Review of Systems: All systems reviewed & are unremarkable except as noted in HPI & below Physical Exam 2 Physical Exam: Constitutional: No acute distress HEENT: EOMI, PERRLA Respiratory system: Decreased air entry bilaterally, no wheeze, no rhonchi, positive crackles bilaterally CVS: S1-S2 positive, no murmurs or gallops, distant heart sounds Abdomen: Soft, nontender, nondistended, positive bowel sounds x4 Extremities: +2 pulses bilaterally radialis/ dorsalis pedis, no cyanosis, minimal pitting edema bilateral lower extremity Neuro: Awake alert oriented x3 Psych: Normal mood and affect G/U: No [place] Skin: no rashes, warm and dry Lymphatic: no cervical or axillary lymphadenopathy Results & Data Results & Data Vital Signs (Past 12 Hours) Vital Signs Temp Pulse Pulse Resp BP Pulse Ox O2 Del Method 11/08/23 09:48 70 11/08/23 07:20 36.7 C 79 19 136/69 90 High Flow Nasal Cannula 11/08/23 03:50 36.7 C 71 19 145/82 H 96 BiPAP 11/08/23 03:33 72 17 94 11/08/23 01:30 86 21 90 11/07/23 23:57 36.9 C 68 18 154/67 H 90 High Flow Nasal Cannula O2 Flow Rate FiO2 11/08/23 09:48 11/08/23 07:20 11/08/23 03:50 11/08/23 03:33 70 11/08/23 01:30 70 11/07/23 23:57 12 Laboratory Results 11/08/23 08:36 11/08/23 08:36 PG Care Time/CCT Total # of Minutes Spent Total Time Spent with Patient: Total time spent is greater than 50% in coordination of care (as documented) at patient's floor/unit and/or counseling patient: Coding Level of Care Code 77315 INT INP/OBS CARE 3/75MIN Diagnoses Acute and chronic respiratory failure with hypoxia J96.21 Acute on chronic heart failure with preserved ejection fraction (HFpEF) I50.33 Pleural effusion J90
--- NOTE | 2023-11-08 14:13 | Ultrasound Report ---
BILATERAL LOWER EXTREMITY VENOUS DOPPLER HISTORY: Acute pain and swelling of the lower legs Rule out DVT COMPARISON STUDY: None. FINDINGS: There is normal compressibility, flow, and augmentation within the bilateral lower extremit y deep venous systems. IMPRESSION: No DVT within the right or left lower extremity. ACT 112: Negative or not required by law. Electronically signed by: Navin Cuevas M.D. 11/08/2023 2:12 PM
[2023-11-08 15:16] LABS: Hematocrit (blood only) 27.7 % (42.0-52.0); Hemoglobin 9.5 g/dl (14.0-18.0)
[2023-11-08] MEDS: PANTOprazole 40 MG in SYRINGE 0 ML IV ONE (15:32)
[2023-11-08 15:54] LABS: Ferritin 159.9 ng/ml (8-388)
--- NOTE | 2023-11-08 16:34 | Hospitalist Progress Note ---
Date of Service November 08, 2023 Assessment & Plan (1) Hypoxia: Plan: 78yo male presenting with acute hypoxic respiratory failure likely secondary to exacerbation of HPpEF with volume overload. Patient requiring CPAP and high flow oxygen. Patient has high oxygen re quirements Patient with history of CAD with prior stenting. His last echocardiogram from 2019 with preserved EF and some WMA. 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 Patient has been given Lasix 100mg IV and placed on CPAP. -Continue to diurese - Lasix 40mg IV BID -Echocardiogram performed on 11/06 shows preserved ejection fraction elevated right-sided heart pressures and no significant valvular heart disease -elevated troponin suspect demand ischemia Acute respiratory failure with hypoxia origin is likely heart failure preserved ejection fraction. It be unlikely the patient has a PE given he is on outpatient Xarelto and does have some liver dysfunction with elevated INR on presentation His renal function precludes the ability to do a CT angiogram however if his degree of respiratory stress persist consideration of a noncontrast CT to evaluate lung parenchyma and pulmonary consultation which could be considered Anemia: hemoglobin has dropped 1.1 points on day 1 and 1.4 points on day 2. Concern over occult bleed. will obtain CT scan of abd pelvis on 11/07. No signs of GI bleed. Hemoglobin is stable on repeat levels.. ordered iron levels. (2) Hypertension: Plan: unstable typically on Amlodipine metoprolol these are continued at this time (3) Diabetes mellitus, type 2: Plan: Chronic -Continue Sitagliptin basal bous coverage -Lantus 15u BID -ISS -Goal blood sugar 110 - 140 (4) Atrial fibrillation: Plan: Rate controlled -Continue Metoprolol -Continue Rivaroxaban - adjusted for renal clearance (5) Coronary artery disease: Plan: Patient denies chest pain -Continue ASA, Atorvastatin, metoprolol Plan DVT Ppx - continue Rivaroxaban Code - Full per discussion with patient Admission and Anticipated Discharge Date Admission Date: November 06, 2023 Subjective 78 yo male reports breathing much better. He has no new complaints. Denies any blood in stools, or dark stools. His last BM was yesterday. Review of Systems Review of Systems: All systems reviewed & are unremarkable except as noted in HPI & below Physical Exam Physical Exam: Patient sitting up comfortably. he denies any dietary indiscretion any significant chest pain Rales at bases Abdomen NABS soft nontender Extremities with trace edema bilaterally pretibially Results & Data Results & Data Vital Signs (Past 12 Hours) Vital Signs Temp Pulse Resp BP Pulse Ox O2 Del Method O2 Flow Rate 11/08/23 15:29 37.1 C 84 19 158/79 H 91 High Flow Nasal Cannula 9 11/08/23 11:14 36.9 C 70 18 135/75 90 High Flow Nasal Cannula 12 11/08/23 09:48 70 11/08/23 07:20 36.7 C 79 19 136/69 90 High Flow Nasal Cannula PG Care Time/CCT Total # of Minutes Spent Total Time Spent with Patient: Total time spent is greater than 50% in coordination of care (as documented) at patient's floor/unit and/or counseling patient: Coding Level of Care Code 44699 SUB INP/OBS CARE 2/35MIN Diagnoses Hypoxia R09.02 Hypertension I10 Hypertension type: unspecified Diabetes mellitus, type 2 E11.9 Atrial fibrillation I48.91 Coronary artery disease I25.10 (2) Hypertension Hypertension type: unspecified Qualified Code(s): I10 - Essential (primary) hypertension
[2023-11-08] MEDS: FERROUS SULFATE 325 MG TAB PO SCH (17:17)
--- NOTE | 2023-11-08 19:11 | CT Scan Report ---
ABDOMEN AND PELVIS CT WITHOUT CONTRAST CT DOSE: 1023.92 mGy.cm HISTORY: Acute anemia with possible intra-abdominal hemorrhage new anemia/ concern for hematoma TECHNIQUE: Multiaxial CT images of the abdomen and pelvis were performed without contrast. A dose lo wering technique was utilized adhering to the principles of ALARA. COMPARISON STUDY: Chest CT 12/12/2019 FINDINGS: Cardiomegaly with decreased attenuation of the cardiac blood pole compatible with anemia. E xtensive coronary artery calcifications. Small pericardial effusion is small to moderate pleural effu sions. Cardiac, ostia. Dependent bibasilar consolidative and groundglass densities with air bronchogr ams. No free air. The unenhanced spleen, pancreas, contracted gallbladder and adrenal glands are unremarkable. The live r is within normal limits. There is mild nonspecific bilateral perinephric stranding. No urolith or h ydronephrosis. Decompressed bladder with circumferential wall thickening. Prostatomegaly. Atheroscler osis of the aorta. No lymphadenopathy. No retroperitoneal hemorrhage. There is no bowel obstruction. Probable pellet fragment within the gastric lumen. Hyperdense material noted within the gastric and duodenal lumen. There is nonspecific circumferential wall thickening of the duodenum with mild adjacent inflammatory stranding. Nonspecific likely benign ovoid partially ca lcified structures in the prerectal tissues. Colonic diverticulosis. Moderate colonic fecal retention . Normal appendix. Tiny fat filled umbilical hernia. No acute fracture. IMPRESSION: 1. No bowel obstruction or pneumoperitoneum. 2. Mild duodenal wall thickening with adjacent inflammatory stranding. Additionally, there is hyperde nse material within the duodenal lumen. Findings could be correlated with endoscopy to exclude duoden itis/bleeding duodenal peptic ulcer disease. 3. No retroperitoneal hematoma. 4. Small pericardial with small to moderate pleural effusions. 5. Probable pulmonary edema with dependent atelectasis. 6. Colonic diverticulosis. 7. Additional findings as above. ACT 112: Negative or not required by law. The above report was generated using voice recognition software. It may contain grammatical, syntax o r spelling errors. Electronically signed by: Navin Cuevas M.D. 11/08/2023 7:10 PM
[2023-11-09] MEDS: FUROSEMIDE 40 MG/4 ML VIAL IV SCH (08:47)
--- NOTE | 2023-11-09 09:25 | Hospitalist Progress Note ---
Date of Service November 09, 2023 Assessment & Plan (1) Anemia: Plan: Thouggh this is not the main reason patient is here. His hypoxia is what brought him to the hospital. HOwever despite aggressively diuresing him, his hemoglobin has been steadily dropping. He has a 1.1 drop on day 1 and a 1.4 drop on day 2. Iron levels were also low with low transferrin saturation Thankfully his repeat hemoglobin appeared stable. Patient placed on one dose of PPI. ct scan of his abd/pelvis to rule out bleeding showed possible duodenitis and hypderdense fluid that may be blood. Will hold aspirn xarelto. will consult GI. Will place on PPI BID . update: Patient will have upper GI scope on 11/09 (2) Hypoxia: Plan: 78yo male presenting with acute hypoxic respiratory failure likely secondary to exacerbation of HPpEF with volume overload. Patient requiring CPAP and high flow oxygen. Patient has high oxygen requirements Patient with history of CAD with prior stenting. His last echocardiogram from 2019 with preserved EF and some WMA. 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 Patient has been given Lasix 100mg IV and placed on CPAP. -Continue to diurese - Lasix 40mg IV BID -Echocardiogram performed on 11/06 shows preserved ejection fraction elevated right-sided heart pressures and no significant valvular heart disease -elevated troponin suspect demand ischemia Acute respiratory failure with hypoxia origin is likely heart failure preserved ejection fraction. It be unlikely the patient has a PE given he is on outpatient Xarelto and does have some liver dysfunction with elevated INR on presentation His renal function precludes the ability to do a CT angiogram however if his degree of respiratory stress persist consideration of a noncontrast CT to evaluate lung parenchyma and pulmonary consultation which could be considered Showing improving on 11/08 Nasal cannula is down to 6 liters (3) Hypertension: Plan: unstable typically on Amlodipine metoprolol these are continued at this time (4) Diabetes mellitus, type 2: Plan: Chronic -Continue Sitagliptin basal bous coverage -Lantus 15u BID -ISS -Goal blood sugar 110 - 140 (5) Atrial fibrillation: Plan: Rate controlled -Continue Metoprolol -Continue Rivaroxaban - adjusted for renal clearance (6) Coronary artery disease: Plan: Patient denies chest pain -Continue ASA, Atorvastatin, metoprolol Plan DVT Ppx - continue Rivaroxaban Code - Full per discussion with patient Admission and Anticipated Discharge Date Admission Date: November 06, 2023 Subjective Patient reports breathing better. He has no new complaints Review of Systems Review of Systems: All systems reviewed & are unremarkable except as noted in HPI & below Physical Exam Physical Exam: Patient sitting up comfortably. he denies any dietary indiscretion any significant chest pain Rales at bases Abdomen NABS soft nontender Extremities with trace edema bilaterally pretibially Results & Data Results & Data Vital Signs (Past 12 Hours) Vital Signs Temp Pulse Pulse Resp BP Pulse Ox Pulse Ox 11/09/23 08:21 11/09/23 08:05 36.6 C 67 17 163/72 H 94 11/09/23 03:17 37.1 C 62 18 131/66 93 11/08/23 23:44 70 24 96 11/08/23 22:49 11/08/23 22:45 9 L 11/08/23 22:28 36.7 C 81 18 153/70 H 92 O2 Del Method O2 Del Method O2 Flow Rate FiO2 11/09/23 08:21 Nasal Cannula 8 11/09/23 08:05 Nasal Cannula 8 11/09/23 03:17 High Flow Nasal Cannula 9 11/08/23 23:44 70 11/08/23 22:49 Nasal Cannula 9 11/08/23 22:45 High Flow Nasal Cannula 11/08/23 22:28 High Flow Nasal Cannula 9 PG Care Time/CCT Total # of Minutes Spent Total Time Spent with Patient: Total time spent is greater than 50% in coordination of care (as documented) at patient's floor/unit and/or counseling patient: Coding Level of Care Code 74845 SUB INP/OBS CARE 3/50MIN Diagnoses Anemia D64.9 Hypoxia R09.02 Hypertension I10 Hypertension type: unspecified Diabetes mellitus, type 2 E11.9 Atrial fibrillation I48.91 Coronary artery disease I25.10 Time Spent (min) 50 (3) Hypertension Hypertension type: unspecified Qualified Code(s): I10 - Essential (primary) hypertension
[2023-11-09 09:45] LABS: Hematocrit (blood only) 28.3 % (42.0-52.0); Hemoglobin 9.5 g/dl (14.0-18.0); Mean Corpuscular Hemoglobin 31.3 pg (25.0-34.0); Mean Corpuscular Hgb Conc 33.6 g/dL (32.0-36.0); Mean Corpuscular Volume 93.1 fL (80.0-100.0); Mean Platelet Volume 10.3 fL (9.4-12.4); Platelet Count 160 K/uL (130-400); RDW Coefficient of Variation 14.8 % (11.5-14.5); RDW Standard Deviation 50.9 fL (36.4-46.3); Red Blood Count 3.04 M/uL (4.70-6.10); White Blood Count 6.43 K/ul (4.8-10.8)
[2023-11-09 10:01] LABS: BUN Creatinine Ratio 27.5 (10-20); Calcium 8.8 mg/dl (8.6-10.3); Est GFR (African American) 37.3 ml/min; Est GFR (Non-African American) 32.2 ml/min; Potassium 3.7 mmol/L (3.5-5.1)
[2023-11-09] MEDS: PANTOprazole 40 MG in SYRINGE 0 ML IV SCH (10:47)
--- NOTE | 2023-11-09 10:55 | Gastrointestinal Consultation ---
Date of Consultation November 09, 2023 Assessment & Plan (1) Anemia: (2) Acute and chronic respiratory failure with hypoxia: (3) Abnormal CT scan, small bowel: Plan Patient is a 78 y.o. male with a history of DM, CAD, HTN, CKD and CHF admitted with acute hypoxic respiratory failure secondary to CHF exacerbation now with worsened anemia and abnormal CT imaging suggestive of duodenal ulcer in the setting of chronic anticoagulation use for atrial fibrillation. 1. NPO. 2. EGD tomorrow with Dr. Nicholson for further evaluation. 3. Continue Pantoprazole 40 mg IV BID. 4. Supportive care per primary team. Thank you for allowing us to participate in the care of this patient. If you gerber ve any questions or concerns, please do not hesitate to contact us. Supervising Physician Co-Signing Physician Notes Agree with DESHAUN Roberts as above Interviewed and examined patient and agree with above Abd: Soft, NT, ND, +BS Continue current therapy and supportive care Proceed with EGD in the AM History of Present Illness Reason for Consultation: Anemia Requesting Physician: Dr. Umana Attending Physician: Juan Manuel Umana History of Present Illness Patient is a 78 y.o. male with a history of DM, Atrial fibrillation on chronic anticoagulation, CAD, CKD, and CHF admitted with acute hypoxic respiratory failure secondary to CHF exacerbation. He has been improving from a respiratory perspective. GI has been consulted in regard to a declining H&H and abnormal CT imaging demonstrated the following: "2. Mild duodenal wall thickening with adjacent inflammatory stranding. A dditionally, there is hyperdense material within the duodenal lumen. Findings could be correlated with endoscopy to exclude duodenitis/bleeding duodenal peptic ulcer disease." He has been placed on NPO status but not before completing his solid food breakfast. Patient denies any abdominal pain, nausea or vomiting, or overt GIB. He has never undergone any prior upper endoscopic procedure but states he did have a colonoscopy in the past which was reportedly unremarkable. Patient has been started on Pantoprazole 40 mg IV BID. H&H is stable over the past 24 hours at 9.5/28.3. Allergies Allergy/AdvReac Type Severity Reaction Status Date / Time hydrochlorothiazide AdvReac Intermediate recurring Verified 11/06/23 20:56 hyponatremia oxycodone [From Percocet] AdvReac Mild Nausea Verified 11/06/23 20:56 Home Medications Medication Instructions Recorded Confirmed Type omega 7-qws-zyr-fish oil 60 mg-90 2 cap PO BID 05/10/18 11/06/23 History mg-500 mg capsule (Fish Oil) torsemide 10 mg tablet 10 mg PO DAILY #30 tabs 12/15/19 11/06/23 Rx econazole 1 % topical cream 1 applic topical QID 12/29/19 11/06/23 History aspirin 81 mg tablet,delayed 81 mg PO DAILY 12/03/21 11/06/23 History release (Adult Aspirin Regimen) magnesium 200 mg tablet 200 mg PO DAILY 01/21/22 11/06/23 History allopurinol 300 mg tablet 300 mg PO QAM #90 tabs 12/02/22 11/06/23 Rx fluticasone propionate 50 2 spray intranasal DAILY #48 grams 12/02/22 11/06/23 Rx mcg/actuation nasal spray,suspension metoprolol succinate 25 mg 25 mg PO BID #180 tabs 03/02/23 11/06/23 Rx tablet,extended release 24 hr (Toprol XL) sitagliptin phosphate 50 mg tablet 50 mg PO QAM #90 tabs 03/29/23 11/06/23 Rx (Januvia) blood sugar diagnostic (Accu-Chek #100 ea 04/14/23 09/16/23 Rx Asia Plus test strips) atorvastatin 40 mg tablet 40 mg PO HS #90 tabs 06/03/23 11/06/23 Rx insulin glargine 100 unit/mL (3 30 unit (0.3 mL) subcut QPM #27 mL 06/09/23 11/06/23 Rx mL) subcutaneous pen (Lantus Solostar U-100 Insulin) pen needle, diabetic 32 gauge x #100 ea 06/09/23 09/16/23 Rx 5/32" (BD Ultra-Fine Leanne Pen Needle) amlodipine 2.5 mg tablet 2.5 mg PO DAILY 06/10/23 11/06/23 History rivaroxaban 20 mg tablet (Xarelto) 20 mg PO QPM #90 tabs 06/30/23 11/06/23 Rx amlodipine 5 mg tablet 5 mg PO HS #90 tabs 09/10/23 11/06/23 Rx empagliflozin 10 mg tablet 10 mg PO DAILY #30 tabs 09/16/23 11/06/23 Rx (Jardiance) diclofenac sodium 1 % topical gel 2 g topical QID PRN JOINT PAIN 11/06/23 11/06/23 History (Voltaren Arthritis Pain) trazodone 50 mg tablet 50 mg PO HS 11/06/23 11/06/23 History valsartan 320 mg tablet 320 mg PO DAILY 11/06/23 11/06/23 History Patient History Medical History Gout Osteoarthritis Kidney function abnormal "REDUCED KIDNEY FUNCTION" Carotid artery stenosis Hyperlipidemia Surgical History History of left cataract extraction 04/2018: Was given 2mg of versed without apparent complications History of colonoscopy History of tooth extraction Hx of LASIK PRK BILAT EYES History of carotid endarterectomy RT/LEFT SIDE WITH STENTS INSERTIONS BILAT. History of heart artery stent 10 YEARS AGO (2 TOTAL STENTS) History of cardiac cath HEART CATH X 2 (10 YEARS AGO) Family History Grandmother (Paternal) Family history of diabetes mellitus Sister Family history of diabetes mellitus Mother Family hx of colon cancer Colorectal cancer Father AAA (abdominal aortic aneurysm) Denies family history of Ovarian cancer Prostate cancer Myocardial infarction Breast cancer Social History Smoking Status: Never smoker Second Hand Exposure: No; Do You Dip or Chew Tobacco: No; Tobacco Cessation Education Requested by Patient: No Hx Alcohol Use: No Hx Substance Use: No Preferred Language: Macedonian Communication Ability: Effective Visual Impairment: No Limitations Hearing Ability: Normal Strategic Buyer Required: No Beliefs That Will Affect Care: None marital status: Current Living Situation: Spouse Current Living Situation Comment: lives at home with current occupational status: retired Other Information That Helps Us Care for You: No Feels Safe at Home: Yes Safety Concerns: Feels Safe At This Time Childhood Exposure to Second-Hand Smoke: No Diet: low salt Dental Care, Regularly: Yes Physical Activity Frequency: 1-2 Times per Week Seatbelt Use: always Sunscreen Use: Yes Assistive Devices: None Review of Systems Constitutional: no problem reported Respiratory: + dyspnea on exertion; no cough Cardiovascular: no chest pain and no palpitations Gastrointestinal: as per Subjective / HPI Physical Exam Constitutional: WD/WN, vitals as above Respiratory: no respiratory distress Auscultation: + diminished lung sounds and + rales (bases) Cardiovascular: Rate/Rhythm: regular rate and regular rhythm Gastrointestinal (Abdomen): normal bowel sounds, soft, nontender, no hepatosplenomegaly Psychiatric: A+Ox3, euthymic affect Results & Data Vital Signs (Past 12 Hours) Vital Signs Temp Pulse Pulse Resp BP Pulse Ox O2 Del Method 11/09/23 08:21 Nasal Cannula 11/09/23 08:05 36.6 C 67 17 163/72 H 94 Nasal Cannula 11/09/23 03:17 37.1 C 62 18 131/66 93 High Flow Nasal Cannula 11/08/23 23:44 70 24 96 O2 Flow Rate FiO2 11/09/23 08:21 8 11/09/23 08:05 8 11/09/23 03:17 9 11/08/23 23:44 70 PG Care Time/CCT Total # of Minutes Spent Total Time Spent with Patient: Total time spent is greater than 50% in coordination of care (as documented) at patient's floor/unit and/or counseling patient: Coding Level of Care Code 40677 INT INP/OBS CARE 3/75MIN Diagnoses Anemia D64.9 Acute and chronic respiratory failure with hypoxia J96.[address] scan, small bowel R93.3
--- NOTE | 2023-11-09 11:04 | Pulmonology Progress Note ---
Date of Service November 09, 2023 Assessment & Plan (1) Acute and chronic respiratory failure with hypoxia: (2) Acute on chronic heart failure with preserved ejection fraction (HFpEF): (3) Pleural effusion: Plan Chest x-ray 11/07/2023 personally reviewed: Portable film, bilateral costophrenic and cardiophrenic angles are blunted, increased cardiac silhouette. Increased pulmonary vascular congestion 2D echo 11/07/2023: EF 60-65%, moderate MR, moderate dilation of LA, severe dilation of RA, small pericardial effusion -- Acute hypoxic respiratory failure Likely from HFpEF with bilateral pleural effusion Respiratory bio fire negative for everything on 11/06/2023, procalcitonin 0.4 BNP 994 on presentation, 340 on 11/08/2023 -- Probable MARINA Recommend outpatient polysomnography Plan: In/out: -1040, urine output 1400 mL, -1700 mL since coming to the hospital Recommend strict in and out. Gradually titrate down the oxygen. Recommended to be around 90-92% Continue with diuretics. Patient will likely need his diuretic regimen at home change/increased Will benefit from BiPAP nightly and as needed shortness of breath No further recommendation from pulmonary perspective, will sign off Please call directly with any questions Please note the above document was generated using voice recognition software. It may contain grammatical, syntax or spelling errors.Any formal questions or concerns about the content, text or information contained within the body of this dictation should be directly addressed to the provider for clarification. Admission and Anticipated Discharge Date Admission Date: November 06, 2023 Subjective Patient seen and examined at bedside. No acute distress, no adverse events overnight. He was saturating 96% on 6 L nasal cannula. I went down to 4 L Overall he says he is feeling much better. He did use BiPAP overnight but only for 3 hours Therapy tired, no nausea vomiting No headache, no blurry vision Review of Systems 2 Review of Systems: All systems reviewed & are unremarkable except as noted in Subjective Physical Exam 2 Physical Exam: Constitutional: No acute distress HEENT: EOMI, PERRLA Respiratory system: Decreased air entry bilaterally, no wheeze, no rhonchi, positive crackles bilaterally CVS: S1-S2 positive, no murmurs or gallops, distant heart sounds Abdomen: Soft, nontender, nondistended, positive bowel sounds x4 Extremities: +2 pulses bilaterally radialis/ dorsalis pedis, no cyanosis, no edema Neuro: Awake alert oriented x3 Psych: Normal mood and affect G/U: No [place] Skin: no rashes, warm and dry Lymphatic: no cervical or axillary lymphadenopathy Results & Data Results & Data Vital Signs (Past 12 Hours) Vital Signs Temp Pulse Pulse Resp BP Pulse Ox O2 Del Method 11/09/23 08:21 Nasal Cannula 11/09/23 08:05 36.6 C 67 17 163/72 H 94 Nasal Cannula 11/09/23 03:17 37.1 C 62 18 131/66 93 High Flow Nasal Cannula 11/08/23 23:44 70 24 96 O2 Flow Rate FiO2 11/09/23 08:21 8 11/09/23 08:05 8 11/09/23 03:17 9 11/08/23 23:44 70 Laboratory Results 11/09/23 09:08 11/09/23 09:08 PG Care Time/CCT Total # of Minutes Spent Total Time Spent with Patient: Total time spent is greater than 50% in coordination of care (as documented) at patient's floor/unit and/or counseling patient: Coding Level of Care Code 60369 SUB INP/OBS CARE 2/35MIN Diagnoses Acute and chronic respiratory failure with hypoxia J96.21 Acute on chronic heart failure with preserved ejection fraction (HFpEF) I50.33 Pleural effusion J90
[2023-11-10 07:33] LABS: Hematocrit (blood only) 27.5 % (42.0-52.0); Hemoglobin 9.3 g/dl (14.0-18.0); Mean Corpuscular Hemoglobin 31.6 pg (25.0-34.0); Mean Corpuscular Hgb Conc 33.8 g/dL (32.0-36.0); Mean Corpuscular Volume 93.5 fL (80.0-100.0); Mean Platelet Volume 10.4 fL (9.4-12.4); Platelet Count 180 K/uL (130-400); RDW Standard Deviation 51.1 fL (36.4-46.3); Red Blood Count 2.94 M/uL (4.70-6.10); White Blood Count 5.39 K/ul (4.8-10.8)
[2023-11-10 07:50] LABS: BUN Creatinine Ratio 26.2 (10-20); Calcium 8.8 mg/dl (8.6-10.3); Creatinine Clr Calc Pharmacy 35.7 ml/min; Est GFR (African American) 44.1 ml/min; Est GFR (Non-African American) 38.1 ml/min; Potassium 3.8 mmol/L (3.5-5.1)
[2023-11-10] MEDS: SODIUM CHLORIDE 0.9% 500 ML IV SCH (08:50)
--- NOTE | 2023-11-10 09:19 | Anesthesiology Consultation ---
Date of Service November 10, 2023 Assessment & Plan (1) Encounter for pre-operative examination: Chart Review Chart Review: Acceptable Risk for Surgery, Patient NOT seen in Pre Admission Testing and temporary data entry clerk initiated Consults Requested none Proposed Anesthesia Anesthesia Type: MAC History Surgery Operation Date: 11/10/23 16:30 Proposed Procedures p Esophagogastroduodenoscopy Dr Nicholson - Deandre Bee Case, DO Height/Weight Height: 5 ft 9 in Weight: 81.1 kg Allergies Allergy/AdvReac Type Severity Reaction Status Date / Time hydrochlorothiazide AdvReac Intermediate recurring Verified 11/06/23 20:56 hyponatremia oxycodone [From Percocet] AdvReac Mild Nausea Verified 11/06/23 20:56 Medications Home Medications Medication Instructions Recorded Confirmed Last Taken omega 4-sgp-vnh-fish oil 60 mg-90 2 cap PO BID 05/10/18 11/06/23 11/06/23 08:00 mg-500 mg capsule (Fish Oil) torsemide 10 mg tablet 10 mg PO DAILY #30 tabs 12/15/19 11/06/23 11/06/23 econazole 1 % topical cream 1 applic topical QID 12/29/19 11/06/23 Unknown aspirin 81 mg tablet,delayed 81 mg PO DAILY 12/03/21 11/06/23 11/06/23 release (Adult Aspirin Regimen) magnesium 200 mg tablet 200 mg PO DAILY 01/21/22 11/06/23 11/06/23 allopurinol 300 mg tablet 300 mg PO QAM #90 tabs 12/02/22 11/06/23 11/06/23 fluticasone propionate 50 2 spray intranasal DAILY #48 grams 12/02/22 11/06/23 11/06/23 mcg/actuation nasal spray,suspension metoprolol succinate 25 mg 25 mg PO BID #180 tabs 03/02/23 11/06/23 11/06/23 08:00 tablet,extended release 24 hr (Toprol XL) sitagliptin phosphate 50 mg tablet 50 mg PO QAM #90 tabs 03/29/23 11/06/23 11/06/23 (Januvia) blood sugar diagnostic (Accu-Chek #100 ea 04/14/23 09/16/23 Unknown Asia Plus test strips) atorvastatin 40 mg tablet 40 mg PO HS #90 tabs 01/09/2111/06/23 11/05/23 insulin glargine 100 unit/mL (3 30 unit (0.3 mL) subcut QPM #27 mL 06/09/23 11/06/23 11/05/23 mL) subcutaneous pen (Lantus Solostar U-100 Insulin) pen needle, diabetic 32 gauge x #100 ea 06/09/23 09/16/23 Unknown 532" (BD Ultra-Fine Leanne Pen Needle) amlodipine 2.5 mg tablet 2.5 mg PO DAILY 06/10/23 11/06/23 11/06/23 rivaroxaban 20 mg tablet (Xarelto) 20 mg PO QPM #90 tabs 06/30/23 11/06/23 11/05/23 amlodipine 5 mg tablet 5 mg PO HS #90 tabs 09/10/23 11/06/23 11/05/23 empagliflozin 10 mg tablet 10 mg PO DAILY #30 tabs 09/16/23 11/06/23 11/06/23 (Jardiance) diclofenac sodium 1 % topical gel 2 g topical QID PRN JOINT PAIN 11/06/23 11/06/23 Unknown (Voltaren Arthritis Pain) trazodone 50 mg tablet 50 mg PO HS 11/06/23 11/06/23 11/05/23 valsartan 320 mg tablet 320 mg PO DAILY 11/06/23 11/06/23 11/06/23 Active Medications Generic Name Dose Route Start Last Admin Trade Name Freq PRN Reason Stop Dose Admin Acetaminophen 650 mg 11/06/23 22:32 11/10/23 03:36 Acetaminophen 325 Mg Tab PO 12/06/23 22:31 650 mg Q4H PRN Administration Pain or Fever Allopurinol 300 mg 11/07/23 09:00 11/09/23 08:46 Allopurinol 300 Mg Tab PO 12/07/23 08:59 300 mg QAM ADAM Administration Amlodipine Besylate 2.5 mg 11/07/23 09:00 11/09/23 08:45 Amlodipine Besylate 5 Mg Tab PO 12/07/23 08:59 2.5 mg DAILY ADAM Administration Amlodipine Besylate 5 mg 11/07/23 21:00 11/09/23 20:31 Amlodipine Besylate 5 Mg Tab PO 12/07/23 20:59 5 mg HS ADAM Administration Aspirin 81 mg 11/07/23 09:00 11/09/23 08:45 Aspirin 81 Mg Ectab PO 12/07/23 08:59 81 mg DAILY ADAM Administration Atorvastatin Calcium 40 mg 11/07/23 21:00 11/09/23 20:30 Atorvastatin 40 Mg Tab PO 12/07/23 20:59 40 mg HS ADAM Administration Empagliflozin 10 mg 11/07/23 09:00 11/09/23 08:45 Empagliflozin 10 Mg Tab PO 12/07/23 08:59 10 mg DAILY ADAM Administration Ferrous Sulfate 325 mg 11/08/23 16:45 11/09/23 08:46 Ferrous Sulfate 325 Mg Tab PO 12/08/23 16:44 325 mg QAM ADAM Administration Fluticasone Propionate 2 sprays 11/07/23 09:00 11/10/23 08:50 Fluticasone Propionate Na Spr 16 Gm Btl NA 12/07/23 08:59 2 sprays DAILY ADAM Administration Furosemide 40 mg 11/09/23 09:00 11/10/23 08:51 Furosemide 40 Mg/4 Ml Vial IV 12/09/23 08:59 40 mg DAILY ADAM Administration Pantoprazole Sodium 40 mg/ 10 mls @ 5 mls/min 11/09/23 09:30 11/10/23 08:52 Syringe IV 12/09/23 09:29 5 mls/min BID ADAM Administration Sodium Chloride 500 mls @ 15 mls/hr 11/10/23 07:30 11/10/23 08:50 Nss IV 11/11/23 07:29 15 mls/hr .Q24H ADAM Administration Insulin Aspart 0 units 11/07/23 07:30 11/10/23 08:42 Insulin Aspart Per Unit Charge SC 12/07/23 07:29 Not Given ACHS ADAM Insulin Glargine 15 units 11/07/23 09:00 11/09/23 20:24 Lantus Per Unit Charge SQ 12/07/23 08:59 Not Given BID ADAM Metoprolol Succinate 25 mg 11/07/23 09:00 11/09/23 20:30 Metoprolol Succ 25mg Ext Rel Tab PO 12/07/23 08:59 25 mg BID ADAM Administration Rivaroxaban 15 mg 11/07/23 16:30 11/08/23 17:17 Rivaroxaban 15 Mg Tab PO 12/07/23 16:29 15 mg QDD ADAM Administration Trazodone HCl 50 mg 11/07/23 21:00 11/09/23 20:31 Trazodone Hcl 50 Mg Tab PO 12/07/23 20:59 50 mg HS ADAM Administration Past Medical History Medical History Gout Osteoarthritis Kidney function abnormal "REDUCED KIDNEY FUNCTION" Carotid artery stenosis Hyperlipidemia Past Family History Family History Grandmother (Paternal) Family history of diabetes mellitus Sister Family history of diabetes mellitus Mother Family hx of colon cancer Colorectal cancer Father AAA (abdominal aortic aneurysm) Denies family history of Ovarian cancer Prostate cancer Myocardial infarction Breast cancer Past Surgical History Surgical History History of left cataract extraction 04/2018: Was given 2mg of versed without apparent complications History of colonoscopy History of tooth extraction Hx of LASIK PRK BILAT EYES History of carotid endarterectomy RT/LEFT SIDE WITH STENTS INSERTIONS BILAT. History of heart artery stent 10 YEARS AGO (2 TOTAL STENTS) History of cardiac cath HEART CATH X 2 (10 YEARS AGO) Past Anesthesia History No Hx of Anesthesia Complications and No Family Hx of Anesthesia Complications History of PONV No Hx of PONV and No Hx of Motion Sickness Social History Smoking Status: Never smoker Do You Dip or Chew Tobacco: No Hx Alcohol Use: No Hx Substance Use: No substance use type: does not use Physical Exam Vital Signs Last Vital Signs Temp 36.9 C 11/10/23 07:36 Pulse 69 11/10/23 07:36 Resp 18 11/10/23 07:36 BP 151/69 H 11/10/23 07:36 Pulse Ox 94 11/10/23 07:36 O2 Del Method Nasal Cannula 11/10/23 07:36 O2 Flow Rate 3 11/10/23 07:36 FiO2 70 11/08/23 23:44 Testing Laboratory Results 11/10/23 06:22 11/10/23 06:22 PT 19.3 Seconds (9.0-12.0) H 11/07/23 04:13 INR 1.9 (0.9-1.1) H 11/07/23 04:13 APTT 45 Seconds (21-31) H 11/06/23 19:50 Urine Color Yellow 11/06/23 20:19 Urine Appearance Clear (Clear) 11/06/23 20:19 Urine pH 5.0 (4.5-7.5) 11/06/23 20:19 Ur Specific [place] 1.021 (1.000-1.030) 11/06/23 20:19 Urine Protein 3+ (Negative) H 11/06/23 20:19 Urine Glucose (UA) Negative (Negative) 11/06/23 20:19 Urine Ketones Negative (Negative) 11/06/23 20:19 Urine Nitrite Negative (Negative) 11/06/23 20:19 Ur Leukocyte Esterase Negative (Negative) 11/06/23 20:19 Urine WBC (Auto) 0-5 /hpf (0-5) 11/06/23 20:19 Urine RBC (Auto) >20 /hpf (0-2) H 11/06/23 20:19 U Hyaline Cast (Auto) 6-10 /lpf (0-2) H 11/06/23 20:19 U Epithel Cells (Auto) 0-2 /hpf (0-2) 11/06/23 20:19 Urine Bacteria (Auto) None Seen (None Seen) 11/06/23 20:19 11/06/23 20:00 Aerobic Blood Culture - Preliminary Blood No growth in Aerobic bottle after 48 hours. Anaerobic Blood Culture - Preliminary No growth in Anaerobic bottle after 48 hours. 11/06/23 19:50 Aerobic Blood Culture - Preliminary Blood No growth in Aerobic bottle after 48 hours. Anaerobic Blood Culture - Preliminary No growth in Anaerobic bottle after 48 hours. 11/10/23 07:22 POC Glucose 105 H Electrocardiogram Date: 11/06/23 Test Reason : Blood Pressure : / mmHG Vent. Rate : 069 BPM Atrial Rate : 000 BPM P-R Int : 000 ms QRS Dur : 092 ms QT Int : 416 ms P-R-T Axes : 000 002 096 degrees QTc Int : 445 ms Atrial fibrillation with premature ventricular or aberrantly conducted complexes Lateral infarct (cited on or before 30-AUG-2020) Abnormal ECG When compared with ECG of 05-MAY-2021 02:39, Nonspecific T wave abnormality, improved in Lateral leads Confirmed by Mack Alba ([id number]) on 11/07/2023 7:22:01 AM Echocardiogram Date: 11/07/23 EF: 60-65% LV Function: normal RWMA: + none Other Findings: + atrial enlargement (R > L) and + LVH (Borderline) Valvular Disease: + MR (Moderate)
--- NOTE | 2023-11-10 09:26 | History & Physical Bridge Note ---
Date of Service November 10, 2023 History & Physical Bridge Note I have examined the patient, reviewed the History & Physical and in the interval since the performance of the History & Physical I have noted the following changes of clinical significance: no significant events overnight. denies any abdominal pain, n/v or overt GIB. Slight drop in hemoglobin from 9.5 to 9.3 this morning. Remains NPO and continues Pantoprazole 40 mg IV BID. PE: A&Ox3. RRR. Lungs clear, diminished bases. Abdomen soft, nontender. Normal bowel sounds. Moves all extremities. A/P: Patient is a 78 y.o. male with a history of DM, CAD, HTN, CKD and CHF admitted with acute hypoxic respiratory failure secondary to CHF exacerbation now with worsened anemia and abnormal CT imaging suggestive of duodenal ulcer in the setting of chronic anticoagulation use for atrial fibrillation. -NPO. -Proceed with diagnostic EGD by Dr. Nicholson. -Continue Pantoprazole 40 mg IV BID. -Further recommendations pending results of procedure. Supervising Physician Co-Signing Physician Notes Agree with DESHAUN Roberts as above Interviewed and examined patient and agree with above Abd: Soft, NT, ND, +BS Continue current therapy and supportive care Proceed with EGD now
--- NOTE | 2023-11-10 12:09 | Pulmonology Progress Note ---
Date of Service November 10, 2023 Assessment & Plan (1) Acute and chronic respiratory failure with hypoxia: (2) Acute on chronic heart failure with preserved ejection fraction (HFpEF): (3) Pleural effusion: Plan Chest x-ray 11/07/2023 personally reviewed: Portable film, bilateral costophrenic and cardiophrenic angles are blunted, increased cardiac silhouette. Increased pulmonary vascular congestion 2D echo 11/07/2023: EF 60-65%, moderate MR, moderate dilation of LA, severe dilation of RA, small pericardial effusion -- Acute hypoxic respiratory failure Likely from HFpEF with bilateral pleural effusion Respiratory bio fire negative for everything on 11/06/2023, procalcitonin 0.4 BNP 994 on presentation, 340 on 11/08/2023 -- Probable MARINA Recommend outpatient polysomnography Plan: In/out: - 2.9 L, urine output 3450 mL, -2650 mL since coming to the hospital I think patient should be able to be taken off oxygen Continue with diuretics. Patient will likely need his diuretic regimen at home change/increased Will benefit from BiPAP nightly and as needed shortness of breath No further recommendation from pulmonary perspective, will sign off Please call directly with any questions Please note the above document was generated using voice recognition software. It may contain grammatical, syntax or spelling errors.Any formal questions or concerns about the content, text or information contained within the body of this dictation should be directly addressed to the provider for clarification. Admission and Anticipated Discharge Date Admission Date: November 06, 2023 Subjective Patient seen and examined at bedside. No acute distress, no adverse events overnight He was saturating 98% on 3 L, I went down to 1 L. He has been diuresing well. He feels much better, shortness of breath is improved. Denies any chest pain No headache, no blurry vision Fair appetite, no nausea or vomiting Review of Systems 2 Review of Systems: All systems reviewed & are unremarkable except as noted in Subjective Physical Exam 2 Physical Exam: Constitutional: No acute distress HEENT: EOMI, PERRLA Respiratory system: Decreased air entry bilaterally, no wheeze, no rhonchi, positive crackles bilaterally CVS: S1-S2 positive, no murmurs or gallops, distant heart sounds Abdomen: Soft, nontender, nondistended, positive bowel sounds x4 Extremities: +2 pulses bilaterally radialis/ dorsalis pedis, no cyanosis, no edema Neuro: Awake alert oriented x3 Psych: Normal mood and affect G/U: No [place] Skin: no rashes, warm and dry Lymphatic: no cervical or axillary lymphadenopathy Results & Data Results & Data Vital Signs (Past 12 Hours) Vital Signs Temp Pulse Resp BP Pulse Ox O2 Del Method O2 Flow Rate 11/10/23 11:30 36.7 C 70 18 155/80 H 94 Nasal Cannula 3 11/10/23 07:36 36.9 C 69 18 151/69 H 94 Nasal Cannula 3 11/10/23 07:30 Nasal Cannula 3 11/10/23 03:38 36.8 C 64 20 154/77 H 96 Nasal Cannula 3 Laboratory Results 11/10/23 06:22 11/10/23 06:22 PG Care Time/CCT Total # of Minutes Spent Total Time Spent with Patient: Total time spent is greater than 50% in coordination of care (as documented) at patient's floor/unit and/or counseling patient: Coding Level of Care Code 25615 SUB INP/OBS CARE 2/35MIN Diagnoses Acute and chronic respiratory failure with hypoxia J96.21 Acute on chronic heart failure with preserved ejection fraction (HFpEF) I50.33 Pleural effusion J90
[2023-11-10] MEDS: PROPOFOL IV EMULSION 10 MG/ML 20 ML VIAL IV ONE (15:12)
[2023-11-10] MEDS: LIDOCAINE 2% 2 ML VIAL/AMP(20MG/ML) INFIL ONE (15:12)
--- NOTE | 2023-11-10 15:19 | Anesthesiology Progress Note ---
Date of Service November 10, 2023 Anesthesia Post Procedure Vital Signs Vital Signs: Temp Pulse Pulse Pulse Resp BP Pulse Ox 11/10/23 15:14 76 16 156/85 H 93 11/10/23 15:05 78 18 165/78 H 90 11/10/23 14:50 75 18 144/72 H 91 11/10/23 13:50 36.6 C 87 18 158/79 H 92 11/10/23 11:30 36.7 C 70 18 155/80 H 94 11/10/23 07:36 36.9 C 69 18 151/69 H 94 11/10/23 07:30 11/10/23 03:38 36.8 C 64 20 154/77 H 96 11/09/23 22:35 37.0 C 62 18 154/73 H 92 11/09/23 22:04 77 11/09/23 20:30 11/09/23 19:27 36.6 C 67 16 153/81 H 93 11/09/23 16:10 37.1 C 64 17 137/81 92 11/09/23 16:01 70 O2 Del Method O2 Flow Rate 11/10/23 15:14 Room Air 11/10/23 15:05 Room Air 11/10/23 14:50 Room Air 11/10/23 13:50 Room Air 11/10/23 11:30 Nasal Cannula 3 11/10/23 07:36 Nasal Cannula 3 11/10/23 07:30 Nasal Cannula 3 11/10/23 03:38 Nasal Cannula 3 11/09/23 22:35 Nasal Cannula 3 11/09/23 22:04 11/09/23 20:30 Nasal Cannula 3 11/09/23 19:27 Nasal Cannula 3 11/09/23 16:10 Nasal Cannula 3 11/09/23 16:01 Transfer of Care Handoff Completed per policy Notes Mental Status: alert / awake / arousable and participated in evaluation Patient Amnestic to Procedure: Yes Nausea / Vomiting: adequately controlled Pain: adequately controlled Airway Patency, RR, SpO2: stable & adequate BP & HR: stable & adequate Hydration State: stable & adequate Anesthetic Complications: no major complications apparent
--- NOTE | 2023-11-10 16:50 | Discharge Summary ---
Date of Service November 10, 2023 Admission HPI Per Admitting Provider Jae Garcia is a 78yo male with history of HTN, DM, permanent AF, Carotid artery stenosis, CAD and HFpEF (Echo 12/14/19 with EF of 60-65%, mild hypokinesis of the inferior posterior wall) presenting with complaint of shortness of breath. Patient complains that he has been unable to sleep for the last several nights - waking from sleep, possibly short of breath upon waking but patient is not sure. He has had progressive weakness and fatigue as well, decreased oral intake. Ongoing chest congestion, orthopnea and dry cough. Patient endorses a 4# weight gain over the last several days. Also with mild abdominal tenderness. Patient denies fever, chills, nausea, vomiting, diarrhea. No urinary complaints. No additional complaints at this time. In the ER patient afebrile, hypertensive, initially saturating 86% on room air. He was placed on 9L Oxymask with improvement in saturations. He has been given Lasix 100mg IV with minimal UOP thus far Had some coughing associated with increased SOB. CPAP placed ER Course: Lasix 100mg IV Atorvastatin 40mg PO Metoprolol 25mg PO Rivaroxaban 15mg PO Trazodone 50mg PO Amlodipine 5mg PO Nitropaste 0.5 inches Principal Diagnosis hypoxia from acute HFpEF Discharge Exam Patient sitting up comfortably. he denies any dietary indiscretion any significant chest pain decreased Rales at bases Abdomen NABS soft nontender Extremities with trace edema bilaterally pretibially Discharge Data Allergies Allergy/AdvReac Type Severity Reaction Status Date / Time hydrochlorothiazide AdvReac Intermediate recurring Verified 11/06/23 20:56 hyponatremia oxycodone [From Percocet] AdvReac Mild Nausea Verified 11/06/23 20:56 Consultations 11/06/23 21:10 ED Decision to Admit Stat 11/08/23 08:30 Consult Pulmonology Routine 11/09/23 08:50 Consult Gastroenterology Routine 11/10/23 16:49 [facility] CHF Program Referral Routine Procedures Performed Operation Date: 11/10/23 16:30 Actual Procedures p EGD Biopsy Cytology - Deandre Bee Case, DO Ordered Studies 11/08/23 12:35 US venous doppler LE BI Routine 11/08/23 16:32 CT abd pelvis wo con Urgent Hospital Course (1) Hypoxia: 78yo male presenting with acute hypoxic respiratory failure likely secondary to exacerbation of HPpEF with volume overload. Patient requiring CPAP and high flow oxygen. Patient has high oxygen requirements Patient with history of CAD with prior stenting. His last echocardiogram from 2019 with preserved EF and some WMA. 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 Patient has been given Lasix 100mg IV and placed on CPAP. -Continue to diurese - Lasix 40mg IV BID -Echocardiogram performed on 11/06 shows preserved ejection fraction elevated right-sided heart pressures and no significant valvular heart disease -elevated troponin suspect demand ischemia Acute respiratory failure with hypoxia origin is likely heart failure preserved ejection fraction. It be unlikely the patient has a PE given he is on outpatient Xarelto and does have some liver dysfunction with elevated INR on presentation His renal function precludes the ability to do a CT angiogram however if his degree of respiratory stress persist consideration of a noncontrast CT to evaluate lung parenchyma and pulmonary consultation which could be considered Patient improved with diuretics. likely this was HFpEF. will increase torsemide to 20 mg daily. Patient was negative 5 liters during hospital stay. AT discharge he was on room air. WIll likely benefit from BIPAP at night, but patient did not want to stay the night for additional workup. will defer to PCP. (2) Anemia: Thouggh this is not the main reason patient is here. His hypoxia is what brought him to the hospital. HOwever despite aggressively diuresing him, his hemoglobin steadily dropped. He has a 1.1 drop on day 1 and a 1.4 drop on day 2. Iron levels were also low with low transferrin saturation Thankfully his repeat hemoglobin appeared stable. Patient placed on one dose of PPI. ct scan of his abd/pelvis to rule out bleeding showed possible duodenitis and hypderdense fluid that may be blood. Upper GI scope showed non bleeding duodenal ulcers. Hemoglobin remains stable since holding asa/xarelto and instituiting PPI. GI states ok to resume aspirin and xarelto. Xarelto will continue at [address] on PPI BID . (3) Hypertension: unstable typically on Amlodipine metoprolol these are continued at this time (4) Diabetes mellitus, type 2: Chronic -Continue Sitagliptin (5) Atrial fibrillation: Rate controlled -Continue Metoprolol -Continue Rivaroxaban - adjusted for renal clearance (6) Coronary artery disease: Patient denies chest pain -Continue ASA, Atorvastatin, metoprolol Total Time Total Time Spent Total Time Spent (In Minutes): 32 Discharge Plan Discharge Items Patient Disposition: Home - Self-Care Reason For Visit: SHORTNESS OF BREATH Discharge Diagnosis: SOB Activity: Resume your previous activity Non-emergency contact: Primary Care Provider Call non-emergency contact if: you have any medication questions Follow-up/Referrals: Laurie Inman MD [Primary Care Provider] - 11/19/23 10:20 am Sadie Saldivar PA-C [Physician Pest Control Pilot] - 11/12/23 11:30 am Diet: Heart Healthy Addtl Attending Provider Instructions: Good afternoon Mr. Garcia, I recommend close followup with your PCP in 1-2 weeks. During your hospital stay, you were found to have 2 duodenal ulcers. These were no longer bleeding. You will be on pantoprazole for 3 months taking this medicine 2 times a day. Then you will be tapered down to once a day. In regards to your fluid retention, we will increase your torsemide to 20 mg daily Will recommend followup with heart failure clinic. We will cut back your xarelto due to your kidney function. We will also decrease your valsartan. Recommend your PCP recheck your kidney function at time of the next visit. Your PCP may consider getting you a BIPAP machine. It was a pleasure to take care of you. Kindest regards, Juan Manuel Guidrybj Pending Studies at Discharge: No Stand-Alone Forms: [facility] Sm[facility] Cessation Medications and DC Order Prescriptions: New ferrous sulfate 325 mg (65 mg iron) Tablet,Delayed Release (Dr/Ec) 325 mg PO QAM Qty: 30 0RF pantoprazole 40 mg Tablet,Delayed Release (Dr/Ec) 40 mg PO BID Qty: 60 2RF Continued allopurinol 300 mg tablet 300 mg PO QAM Qty: 90 3RF fluticasone propionate 50 mcg/actuation spray,suspension 2 spray intranasal DAILY Qty: 48 3RF Rx Instructions: administer 2 sprays into each nostril daily metoprolol succinate [Toprol XL] 25 mg tablet extended release 24 hr 25 mg PO BID Qty: 180 3RF Januvia 50 mg tablet 50 mg PO QAM Qty: 90 3RF (DME) Accu-Chek [place] Plus test strp Strip See Rx Instructions .Route Qty: 100 3RF Rx Instructions: testin 1 time daily atorvastatin 40 mg tablet 40 mg PO HS Qty: 90 3RF insulin glargine [Lantus Solostar U-100 Insulin] 100 unit/mL (3 mL) insulin pen 30 unit subcut QPM Qty: 27 3RF (DME) pen needle, diabetic [BD Ultra-Fine Leanne Pen Needle] 32 gauge x 5/32" needle See Rx Instructions .Route Qty: 100 3RF Rx Instructions: As directed amlodipine 5 mg tablet 5 mg PO HS Qty: 90 1RF magnesium 200 mg tablet 200 mg PO DAILY aspirin [Adult Aspirin Regimen] 81 mg tablet,delayed release (DR/EC) 81 mg PO DAILY amlodipine 2.5 mg tablet 2.5 mg PO DAILY Jardiance 10 mg tablet 10 mg PO DAILY Qty: 30 3RF omega 2-clg-mny-fish oil [Fish Oil] 60-90-500 mg Capsule 2 cap PO BID econazole 1 % cream 1 applic TOPICAL QID Rx Instructions: APPLY TO AFFECTED AREA trazodone 50 mg tablet 50 mg PO HS Rx Instructions: TAKE 1 TABLET BY MOUTH EVERY DAY IN THE EVENING diclofenac sodium [Voltaren Arthritis Pain] 1 % gel 2 g topical QID PRN (Reason: JOINT PAIN) Rx Instructions: apply to single elbow, wrist or hand; for hand includes palm/fingers/back of hand Changed torsemide 20 mg tablet 20 mg PO DAILY Qty: 30 0RF valsartan 160 mg tablet 160 mg PO PM Qty: 30 0RF rivaroxaban 15 mg tablet 15 mg PO DAILY Qty: 30 0RF Rx Instructions: must administer with evening meal First dose on 11/11/23 Discharge Orders: Discharge Order- CHF (Routine); Ordered 11/10/23 Ordered By: Juan Manuel Umana Admission Data Admit Date/Time: 11/06/23 21:24 Attending Provider: Juan Manuel Umana Admit Provider: Carol Machado Primary Care Provider: Laurie Inman Other Providers: Carol Machado; Lory Sagastume; Deandre Nicholson; Sadie Saldivar Other Interventions: Discharge Summary Assessment (RN) Last Done: 11/10/23 17:03 Coding Level of Care Code 74858 INP/OBS DISCH >30 MIN Diagnoses Hypoxia R09.02 Anemia D64.9 Hypertension I10 Hypertension type: unspecified Diabetes mellitus, type 2 E11.9 Atrial fibrillation I48.91 Coronary artery disease I25.10
[2023-11-10] MEDS ORDERED: PANTOprazole 40 MG TAB PO SCH (21:00)
--- NOTE | 2023-11-11 12:49 | GI REPORT ---
[facility] Patient: AZALEA MILLER : 1945 Sex at : Male Age: 78 Years Procedure: Upper GI endoscopy Date: 11/10/2023 Attending Physician: Deandre Nicholson DO Referring MD: Carol Hernández Do; Juan Manuel Umana M.d. Indications: - Anemia - Abnormal CT of the GI tract Medications: - Monitored Anesthesia Care Complications: - No immediate complications. Estimated Blood Loss: - Estimated blood loss: none. Procedure: - Prior to the procedure, a History and Physical was performed, and patient medications and allergies were reviewed. The patient's tolerance of previous anesthesia was also reviewed. The risks and benefits of the procedure and the sedation options and risks were discussed with the patient. All questions were answered, and informed consent was obtained. Prior Anticoagulants: The patient has taken Xarelto (rivaroxaban), last dose was 5 days prior to procedure. ASA Grade Assessment: III - A patient with severe systemic disease. After reviewing the risks and benefits, the patient was deemed in satisfactory condition to undergo the procedure. - The egd scope was introduced through the mouth and advanced to the third part of the duodenum. - The upper GI endoscopy was accomplished without difficulty. - The patient tolerated the procedure well. Findings: - The examined esophagus was normal. - Localized moderate inflammation characterized by erosions was found in the gastric antrum. Biopsies were taken with a cold forceps for histology. - Two non-bleeding superficial duodenal ulcers with no stigmata of bleeding were found in the duodenal bulb. The largest lesion was 8 mm in largest dimension. Impression: - Normal esophagus. - Gastritis, characterized by erosions. Biopsied. - Non-bleeding duodenal ulcers with no stigmata of bleeding. Recommendation: - [facility]. - Advance diet as tolerated. - Continue present medications. - Resume Xarelto (rivaroxaban) at prior dose tomorrow. - Await pathology results. Procedure Code(s): - 14816, Esophagogastroduodenoscopy, flexible, transoral; with biopsy, single or multiple Diagnosis Code(s): - D64.9, Anemia, unspecified - R93.3, Abnormal findings on diagnostic imaging of other parts of digestive tract - K29.70, Gastritis, unspecified, without bleeding - K26.9, Duodenal ulcer, unspecified as acute or chronic, without hemorrhage or perforation CPT(R) - 2023 copyright [employer]. All Rights Reserved. The CPT codes, CCI edits and ICD codes generated are intended as suggestions and were generated based on input data. These codes are preliminary and upon artificial breast fabricator review may be revised to meet current compliance and payer requirements. The provider is responsible for the final determination of appropriate codes, and modifiers. Dr. Deandre Nicholson This document has been electronically signed. Note Initiated:11/10/2023 Note Completed:11/10/2023 2:57 PM \\[email or web address]\[email or web address]\Data\Provation\Results\LIVE\[id number]
== END 2023-11-10 17:40 | disposition home or self-care (01) | DRG 291 ==
LOC: ED 19:18 → EDINP 21:24 → SUATTDRO 21:24 → 2S 22:33